=== PATIENT | female | born 1930 | race Caucasian/White ===

== ENCOUNTER → 2017-12-07 | Outpatient (CLI) | payer MEDICARE, BC ==
[~2017-12-07] MED LIST: ATELVIA35 MG PO; BIOTIN 1000MCG PO; LEVSIN0.125 M1 SL; MELOXICAM15 MG PO; VITAMIN E PO; Z GLUCOSAMINE PO; Z IRON PO; Z.0.ACTONEL150 MG PO; Z.0.CALTRATE 600 +1 PO; Z.0.NAPROXEN500 MG PO; Z.0.NEXIUM40 MG PO; Z.0.VITAMIN B12-FO1 PO; Z.0.VITAMIN C500 MG PO; [UNRECOGNIZED DRUG - CODE] PO; [UNRECOGNIZED DRUG - OTHER] PO; [UNRECOGNIZED DRUG - OTHER] PO; vit b12 PO
--- NOTE | 2017-12-07 14:37 | Diagnostic Imaging Report ---
PROCEDURE: X-RAY CHEST, TWO VIEWS COMPARISON: 03/29/17. INDICATIONS: COUGH FINDINGS: LUNGS: Stable hyperinflation. There is diffuse bronchial wall thickening without focal consolidation. Subsegmental atelectasis/scar has developed in the lateral right upper lobe. There is also subsegmental atelectasis/scar in the lingula. PLEURA: No effusions or pneumothorax. HEART \T\ MEDIASTINUM: The heart is normal in size. Aorta is ectatic but stable. BONES \T\ SOFT TISSUES: Diffusely demineralized. Severe degenerative changes of the left shoulder are stable. No focal osseous lesions. An IVC filter in the upper abdomen is incompletely imaged. CONCLUSION: Diffuse bronchial wall thickening suggestive of bronchitis. No consolidation. Stable pulmonary hyperinflation. Dictated by: Yonathan Nair M.D. on 12/07/2017 at 14:39 Electronically approved by: Yonathan Nair M.D. on 12/07/2017 at 14:39
== END ==
LOC: RAD 13:17
PROVIDERS: ATTEND Family Medicine
DX: R05 Cough (principal)
CPT/HCPCS: 71046

== ENCOUNTER 2017-12-18 09:34 | Outpatient (RCR) | payer MEDICARE, BC | END 2017-12-24 | LOC: WCC 09:34 | PROVIDERS: ATTEND Internal Medicine Infectious Disease | DX: I87.332 Chronic venous hypertension (idiopathic) with ulcer and inflammation of left lower extremity (principal); L97.321 Non-pressure chronic ulcer of left ankle limited to breakdown of skin; R60.0 Localized edema; I87.2 Venous insufficiency (chronic) (peripheral) ==

== ENCOUNTER 2018-05-08 19:08 | Inpatient (IN) | payer MEDICARE, BC ==
[~2018-05-08] VITALS: Ht 167.6 cm; Wt 54.6 kg
[2018-05-08] MEDS ORDERED: MORPHINE SULFATE 2 MG/ML SYR IV STA (19:37)
[2018-05-08] MEDS ORDERED: ONDANSETRON HCL INJ 2 MG/ML VIAL IV STA (19:37)
[2018-05-08] MEDS ORDERED: SODIUM CHLORIDE 0.9% 1000ML 1,000 ML IV STA (19:37)
[2018-05-08 20:08] LABS: BASOPHILS % 0.3 % (0.0-1.0); EOSINOPHILS % 0.3 % (0.0-6.0); HEMATOCRIT 39.4 % (34.2-44.1); HEMOGLOBIN 13.2 g/dL (12.0-16.0); LYMPHOCYTES # (AUTO) 1.3 (1.0-3.2); LYMPHOCYTES % 12.5 % (18.0-39.1); MEAN CORPUSCULAR HEMOGLOBIN 32.6 pg (28-32); MEAN CORPUSCULAR HGB CONC 33.5 g/dL (31-35); MEAN CORPUSCULAR VOLUME 97.3 fL (81-99); MONOCYTES # (AUTO) 0.7 (0.2-0.8); MONOCYTES % 6.3 % (4.4-11.3); NEUTROPHILS # (AUTO) 8.5 (2.1-6.9); NEUTROPHILS % 80.2 % (38.7-80.0); PLATELET COUNT 274 x10e3/uL (140-360); RED BLOOD COUNT 4.05 x10e6/uL (3.6-5.1); RED CELL DISTRIBUTION WIDTH 13.4 % (11.7-14.4)
[2018-05-08 20:20] LABS: INR 0.9; PARTIAL THROMBOPLASTIN TIME 32.2 seconds (23.8-35.5)
--- NOTE | 2018-05-08 20:24 | Diagnostic Imaging Report ---
EXAM: ABDOMEN COMP INCL UPR or DECUB INDICATION: Vomiting and abdominal pain COMPARISON: CT of the abdomen and pelvis April 06, 2016 FINDINGS: LINES/TUBES: IVC filter L3/L4 level. BOWEL PATTERN: No evidence for obstruction. SOFT TISSUES: No abnormal calcifications. LUNG BASES: No consolidations. BONES: No acute findings. Surgical screws project over the left femoral neck. IMPRESSION: Large amount of retained stool without evidence for obstruction. Signed by: Dr. Alivia Mahmood M.D. on 05/08/2018 8:20 PM
--- NOTE | 2018-05-08 20:25 | Diagnostic Imaging Report ---
EXAM: CHEST SINGLE (PORTABLE), AP 1 view INDICATION: Vomiting abdominal pain COMPARISON: Chest x-ray March 29, 2017 FINDINGS: LINES/TUBES: Inferior vena cava filter. LUNGS: No consolidations or edema. Emphysematous changes. Biapical pleural-parenchymal thickening. PLEURA: No effusions or pneumothorax. HEART AND MEDIASTINUM: Normal size and contour. BONES AND SOFT TISSUES: No acute findings. Degenerative changes of the bilateral shoulders. IMPRESSION: Emphysematous changes without consolidation. Signed by: Dr. Alivia Mahmood M.D. on 05/08/2018 8:22 PM
[2018-05-08 20:30] LABS: ALBUMIN 4.7 g/dL (3.5-5.0); ALBUMIN/GLOBULIN RATIO 1.5 (0.8-2.0); ANION GAP 20.8 mmol/L (8-16); CALCIUM 11.9 mg/dL (8.4-10.2); CREATININE, SERUM 1.13 mg/dL (0.57-1.11); MAGNESIUM 1.9 MG/DL (1.3-2.1); POTASSIUM 4.8 mmol/L (3.5-5.1)
[2018-05-08] MEDS ORDERED: PANTOPRAZOLE 40 MG 10ML VIAL IV ONE (20:30)
[2018-05-08 20:36] LABS: CREATINE KINASE MB 1.1 ng/mL (0-5.0)
[2018-05-08] MEDS ORDERED: DIATRIZOATE MEGL/DIATRIZOA SOD 30 ML BTL PO ONE (21:45)
[2018-05-08 22:07] LABS: CLARITY,URINE CLEAR (CLEAR); COLOR,URINE YELLOW (YELLOW)
[2018-05-08 22:08] LABS: BILIRUBIN,URINE NEGATIVE (NEGATIVE); KETONES,URINE 1+ (NEGATIVE); LEUKOCYTE ESTERASE ,URINE NEGATIVE (NEGATIVE); NITRITE,URINE NEGATIVE (NEGATIVE); PROTEIN,URINE DIPSTICK NEGATIVE (NEGATIVE); URINE UROBILINOGEN 0.2 mg/dL (0.2 - 1)
[2018-05-08 22:10] LABS: RBC,URINE 0-5 /HPF (0-5)
[2018-05-08 22:11] LABS: EPITHELIAL CELLS,URINE FEW /LPF; HYALINE CASTS 0-1 (0-1)
[2018-05-08] MEDS: PIPER-TAZ 3.375 GM 50 ML IV SCH (23:37)
--- NOTE | 2018-05-08 23:50 | Diagnostic Imaging Report ---
EXAM: CT ABDOMEN AND PELVIS without IV CONTRAST INDICATION: Abdominal pain and emesis COMPARISON: None TECHNIQUE: The abdomen and pelvis were scanned using a multidetector helical scanner. Coronal and sagittal reformations were obtained. Dose modulation, iterative reconstruction, and/or weight based adjustment of the mA/kV was utilized to reduce the radiation dose to as low as reasonably achievable. Routine protocol performed. IV Contrast: None Oral Contrast: Gastrografin CTDIvol has been reviewed. It is below the limits set by the Radiation Protocol Committee (RPC). FINDINGS: LOWER THORAX: Mild bibasilar atelectasis. LIVER: No masses BILIARY: Normal gallbladder. No ductal dilation. SPLEEN: No masses PANCREAS: No masses ADRENALS: No nodules RIGHT KIDNEY: No nephroureterolithiasis or hydronephrosis. LEFT KIDNEY: No nephroureterolithiasis or hydronephrosis. GI TRACT: Thickened centralized loop of small bowel up to 4.4 cm. Large amount of retained stool throughout the colon. VESSELS: Mild atherosclerotic changes of the abdominal aorta without aneurysm. [place] inferior vena cava filter. PERITONEUM/RETROPERITONEUM: No free air or fluid LYMPH NODES: No lymphadenopathy REPRODUCTIVE ORGANS: Uterus and ovaries are not visualized. BLADDER: Normal SOFT TISSUES: Stable nonspecific lobulated subcutaneous cyst in the superficial soft tissues of the right groin. BONES: No suspicious bone lesions. IMPRESSION: Proximal small bowel obstruction without cause identified by CT. Large amount of retained stool. Signed by: Dr. Alivia Mahmood M.D. on 05/08/2018 11:46 PM
[2018-05-09] VITALS (9 sets, daily range): BP systolic 118–169; BP diastolic 57–75
[2018-05-09] MEDS ORDERED: BENZOCAINE/TETRACAINE/BUTAMBEN AERO SPRAY 56 GM CAN TOP ONE (00:15)
[2018-05-09] MEDS ORDERED: LIDOCAINE VISC 2% SOLN 15 ML UDC ONE (01:27)
[2018-05-09] MEDS: SODIUM CHLORIDE 0.9% 1000ML 1,000 ML IV SCH ×3 (01:31→22:53)
[2018-05-09] MEDS: MORPHINE SULFATE 2 MG/ML SYR IV PRN ×4 (02:59→18:50)
[2018-05-09] MEDS: ONDANSETRON HCL INJ 2 MG/ML VIAL IV PRN ×5 (02:59→18:56)
[2018-05-09] MEDS: PIPER-TAZ 3.375 GM 50 ML IV SCH ×3 (06:03→18:36)
--- NOTE | 2018-05-09 14:01 | Diagnostic Imaging Report ---
EXAM: ABDOMEN COMP INCL UPR or DECUB DATE: 05/09/2018 11:56 AM INDICATION: Small bowel obstruction 05/08/2018 CT and radiographs, no reports available. COMPARISON: None FINDINGS: Left apex curvature of the lumbar spine, advanced degenerative changes of the spine, SI joints, and hips, IVC filter, and lag screws in the left hip, stable. Moderate stool present. Limited bowel gas. IMPRESSION: Moderate stool. Exam similar to previous. Signed by: Dr. Cristiano Alvarado MD on 05/09/2018 1:57 PM
[2018-05-09] MEDS ORDERED: SOD PHOSPHATE/SOD BIPHOSPHATE ENEMA 132 ML BTL PR ONE (21:00)
[2018-05-10] VITALS (8 sets, daily range): BP systolic 141–164; BP diastolic 60–72
[2018-05-10] MEDS: PIPER-TAZ 3.375 GM 50 ML IV SCH ×5 (00:14→23:21)
[2018-05-10 05:26] LABS: BASOPHILS % 0.2 % (0.0-1.0); EOSINOPHILS # (AUTO) 0.2 (0.0-0.4); EOSINOPHILS % 2.4 % (0.0-6.0); HEMATOCRIT 37.7 % (34.2-44.1); HEMOGLOBIN 12.5 g/dL (12.0-16.0); LYMPHOCYTES # (AUTO) 0.9 (1.0-3.2); MEAN CORPUSCULAR HEMOGLOBIN 33.1 pg (28-32); MEAN CORPUSCULAR HGB CONC 33.2 g/dL (31-35); MEAN CORPUSCULAR VOLUME 99.7 fL (81-99); MONOCYTES # (AUTO) 0.8 (0.2-0.8); MONOCYTES % 8.3 % (4.4-11.3); NEUTROPHILS # (AUTO) 7.3 (2.1-6.9); NEUTROPHILS % 78.8 % (38.7-80.0); PLATELET COUNT 241 x10e3/uL (140-360); RED BLOOD COUNT 3.78 x10e6/uL (3.6-5.1); RED CELL DISTRIBUTION WIDTH 13.6 % (11.7-14.4)
[2018-05-10] MEDS: ONDANSETRON HCL INJ 2 MG/ML VIAL IV PRN ×2 (05:32→10:06)
[2018-05-10 05:51] LABS: ALBUMIN 3.7 g/dL (3.5-5.0); ALBUMIN/GLOBULIN RATIO 1.4 (0.8-2.0); ANION GAP 17.1 mmol/L (8-16); CALCIUM 9.7 mg/dL (8.4-10.2); CREATININE, SERUM 0.97 mg/dL (0.57-1.11); POTASSIUM 4.1 mmol/L (3.5-5.1)
[2018-05-10] MEDS: SODIUM CHLORIDE 0.9% 1000ML 1,000 ML IV SCH ×3 (06:15→22:10)
[2018-05-10] MEDS ORDERED: SOD PHOSPHATE/SOD BIPHOSPHATE ENEMA 132 ML BTL PR ONE (08:00)
--- NOTE | 2018-05-10 09:16 | Diagnostic Imaging Report ---
PROCEDURE:ABDOMEN COMP INCL UPR OR DECUB INDICATION:Small bowel obstruction COMPARISON:Abdominal radiographs 05/09/2018. FINDINGS: The bowel gas pattern shows no grossly dilated, air-filled loops of bowel. Gas and fecal material is noted throughout the large bowel and rectum. Upright radiograph shows no sofie pneumoperitoneum. Gastric air-fluid level is again noted. Levoscoliotic curvature of the lumbar spine. Birds nest IVC filter unchanged.. Left proximal femoral nails unchanged. CONCLUSION: Moderate fecal burden within the colon, unchanged. Dilated loops of small bowel described on the comparison CT 05/08/2018 are not identified by plain radiography. No sofie pneumoperitoneum. Dictated by: Niall Rowe M.D. on 05/10/2018 at 9:24 Electronically approved by: Niall Rowe M.D. on 05/10/2018 at 9:24
[2018-05-11] MEDS: ONDANSETRON HCL INJ 2 MG/ML VIAL IV PRN ×3 (01:00→23:07)
[2018-05-11] MEDS: MORPHINE SULFATE 2 MG/ML SYR IV PRN (01:00)
[2018-05-11] MEDS: SODIUM CHLORIDE 0.9% 1000ML 1,000 ML IV SCH ×3 (01:57→21:40)
[2018-05-11 04:00] VITALS: BP 145/65
[2018-05-11] MEDS: PIPER-TAZ 3.375 GM 50 ML IV SCH ×4 (05:11→23:35)
[2018-05-11 07:56] VITALS: BP 127/60
[2018-05-11 09:23] VITALS: BP 127/60
[2018-05-11 12:01] VITALS: BP 142/58
--- OUTSIDE RECORDS SUMMARY | 2018-05-11 13:46 | XMS REPORT ---
Author Author [facility] Address Unknown Phone Unavailable Care Team Providers Care Field Service Analyst Name Role Phone NAT VÁSQUEZ Unavailable Unavailable ROULA SAUCEDO Unavailable Unavailable MERYL VÁSQUEZ Unavailable Unavailable Bruna GRANDE Unavailable Unavailable Problems This patient has no known problems. Allergies, Adverse Reactions, Alerts This patient has no known allergies or adverse reactions. Medications This patient has no known medications. Results Test Description Test Time Test Comments Text Results Atomic Results Result Comments ABDOMEN COMP INCL UPR or DECUB 2018-05-10 09:24:00 [place] [address] Patient Name: ELIAS LARSON MR #: [id number] : 1930 Age/Sex: 88/F Req #: [id number] Adm Physician: NAT VÁSQUEZ MD Ordered by: LORI THEODORE MD Report #: [id number] Location: MED/SURG Room/Bed: [facility] Procedure: [id number] DX/ABDOMEN COMP INCL UPR or DECUB Exam Date: 05/10/18 Exam Time: 0850 REPORT STATUS: Signed PROCEDURE: ABDOMEN COMP INCL UPR OR DECUB INDICATION: Small bowel obstruction COMPARISON: Abdominal radiographs 05/09/2018. FINDINGS: The bowel gas pattern shows no grossly dilated, air-filled loops of bowel. Gas and fecal material is noted throughout the large bowel and rectum. Upright radiograph shows no sofie pneumoperitoneum. Gastric air-fluid level is again noted. Levoscoliotic curvature of the lumbar spine. Birds nest IVC filter unchanged.. Left proximal femoral nails unchanged. CONCLUSION: Moderate fecal burden within the colon, unchanged. Dilated loops of small bowel described on the comparison CT 05/08/2018 are not identified by plain radiography. No sofie pneumoperitoneum. Dictated by: Jamel Rowe M.D. on 05/10/2018 at 9:24 Electronically approved by: Jamel Rowe M.D. on 05/10/2018 at 9:24 Dictated By: JAMEL ROWE MD 3 Transcribed By: HANNAH on 05/10/18923 COPY TO: LORI THEODORE MD ABDOMEN COMP INCL UPR or DECUB 2018-05-09 13:56:00 [place] [address] Patient Name: ELIAS LARSON MR #: [id number] : 1930 Age/Sex: 88/F Req #: [id number] Adm Physician: NAT VÁSQUEZ MD Ordered by: LORI THEODORE MD Report #: [id number] Location: MED/SURG Room/Bed: [facility] Procedure: [id number] DX/ABDOMEN COMP INCL UPR or DECUB Exam Date: 05/09/18 Exam Time: 1345 REPORT STATUS: Signed EXAM: ABDOMEN COMP INCL UPR or DECUB DATE: 05/09/2018 11:56 AM INDICATION: Small bowel obstruction 05/08/2018 CT and radiographs, no reports available. COMPARISON: None FINDINGS: Left apex curvature of the lumbar spine, advanced degenerative changes of the spine, SI joints, and hips, IVC filter, and lag screws in the left hip, stable. Moderate stool present. Limited bowel gas. IMPRESSION: Moderate stool. Exam similar to previous. Signed by: Dr. Adam Alvarado MD on 05/09/2018 1:57 PM Dictated By: ADAM ALVARADO MD 56 Transcribed By: URIEL on 05/09/181356 COPY TO: LORI THEODORE MD CT ABDOMEN/PELVIS WO 2018-05-08 23:22:00 [place] [address] Patient Name: ELIAS LARSON MR #: [id number] : 1930 Age/Sex: 88/F Req #: [id number] Adm Physician: Ordered by: DAVID HUMPHREYS MD Report #: [id number] Location: ER Room/Bed: Procedure: [id number] CT/CT ABDOMEN/PELVIS WO Exam Date: Exam Time: REPORT STATUS: Signed EXAM: CT ABDOMEN AND PELVIS without IV CONTRAST INDICATION: Abdominal pain and emesis COMPARISON: None TECHNIQUE: The abdomen and pelvis were scanned using a multidetector helical scanner. Coronal and sagittal reformations were obtained. Dose modulation, iterative reconstruction, and/or weight based adjustment of the mA/kV was utilized to reduce the radiation dose to as low as reasonably achievable. Routine protocol performed. IV Contrast: None Oral Contrast: Gastrografin CTDIvol has been reviewed. It is below the limits set by the Radiation Protocol Committee (RPC). FINDINGS: LOWER THORAX: Mild bibasilar atelectasis. LIVER: No masses BILIARY: Normal gallbladder. No ductal dilation. SPLEEN: No masses PANCREAS: No masses ADRENALS: No nodules RIGHT KIDNEY: No nephroureterolithiasis or hydronephrosis. LEFT KIDNEY: No nephroureterolithiasis or hydronephrosis. GI TRACT: Thickened centralized loop of small bowel up to 4.4 cm. Large amount of retained stool throughout the colon. VESSELS: Mild atherosclerotic changes of the abdominal aorta without aneurysm. Birdsnest inferior vena cava filter. PERITONEUM/RETROPERITONEUM: No free air or fluid LYMPH NODES: No lymphade nopathy REPRODUCTIVE ORGANS: Uterus and ovaries are not visualized. BLADDER: Normal SOFT TISSUES: Stable nonspecific lobulated subcutaneous cyst in the superficial soft tissues of the right groin. BONES: No suspicious bone lesions. IMPRESSION: Proximal small bowel obstruction without cause identified by CT. Large amount of retained stool. Signed by: Dr. Rambo Mahmood M.D. on 05/08/2018 11:46 PM Dictated By: RAMBO MAHMOOD MD 45 Transcribed By: URIEL on 05/08/182345 COPY TO: DAVID HUMPHREYS MD CHEST SINGLE (PORTABLE) 2018-05-08 20:20:00 [place] [address] Patient Name: ELIAS LARSON MR #: [id number] : 1930 Age/Sex: 88/F Req #: [id number] Adm Physician: Ordered by: DAVID HUMPHREYS MD Report #: [id number] Location: ER Room/Bed: Procedure: [id number] DX/CHEST SINGLE (PORTABLE) Exam Date: 05/08/18 Exam Time: 1999 REPORT STATUS: Signed EXAM: CHEST SINGLE (PORTABLE), AP 1 view INDICATION: Vomiting abdominal pain COMPARISON: Chest x-ray March 29, 2017 FINDINGS: LINES/TUBES: Inferior vena cava filter. LUNGS: No consolidations or edema. Emphysematous changes. Biapical pleural-parenchymal thickening. PLEURA: No effusions or pneumothorax. HEART AND MEDIASTINUM: Normal size and contour. BONES AND SOFT TISSUES: No acute findings. Degenerative changes of the bilateral shoulders. IMPRESSION: Emphysematous changes without consolidation. Signed by: Dr. Rambo Mahmood M.D. on 05/08/2018 8:22 PM Dictated By: RAMBO MAHMOOD MD 21 Transcribed By: URIEL on 05/08/182021 COPY TO: DAVID HUMPHREYS MD ABDOMEN COMP INCL UPR or DECUB 2018-05-08 20:18:00 [place] [address] Patient Name: ELIAS LARSON MR #: [id number] : 1930 Age/Sex: 88/F Req #: [id number] Adm Physician: Ordered by: DAVID HUMPHREYS MD Report #: [id number] Location: ER Room/Bed: Procedure: [id number] DX/ABDOMEN COMP INCL UPR or DECUB Exam Date: 05/08/18 Exam Time: 1999 REPORT STATUS: Signed EXAM: ABDOMEN COMP INCL UPR or DECUB INDICATION: Vomiting and abdominal pain COMPARISON: CT of the abdomen and pelvis April 06, 2016 FINDINGS: LINES/TUBES: IVC filter L3/L4 level. BOWEL PATTERN: No evidence for obstruction. SOFT TISSUES: No abnormal calcifications. LUNG BASES: No consolidations. BONES: No acute findings. Surgical screws project over the left femoral neck. IMPRESSION: Large amount of retained stool without evidence for obstruction. Signed by: Dr. Rambo Mahmood M.D. on 05/08/2018 8:20 PM Dictated By: RAMBO MAHMOOD MD 19 Transcribed By: URIEL on 05/08/182019 COPY TO: DAVID HUMPHREYS MD CHEST 2 VIEWS [place] [address] Patient Name: ELIAS LARSON MR #: [id number] : 1930 Age/Sex: 87/F Req #: [id number] Adm Physician: Ordered by: ROULA SAUCEDO MD Report #: [id number] Location: [facility] Room/Bed: Procedure: [id number] DX/CHEST 2 VIEWS Exam Date: 12/07/17 Exam Time: 1400 REPORT STATUS: Signed PROCEDURE: X-RAY CHEST, TWO VIEWS COMPARISON: 03/29/17. INDICATIONS: COUGH FINDINGS: LUNGS: Stable hyperinflation. There is diffuse bronchial wall thickening without focal consolidation. Subsegmental atelectasis/scar has developed in the lateral right upper lobe. There is also subsegmental atelectasis/scar in the lingula. PLEURA: No effusions or pneumothorax. HEART T MEDIASTINUM: The heart is normal in size. Aorta is ectatic but stable. BONES T SOFT TISSUES: Diffusely demineralized. Severe degenerative changes of the left shoulder are stable. No focal osseous lesions. An IVC filter in the upper abdomen is incompletely imaged. CONCLUSION: Diffuse bronchial wall thickening suggestive of bronchitis. No consolidation. Stable pulmonary hyperinflation. Dictated by: Lexx Cole M.D. on 12/07/2017 at 14:39 Electronically approved by: Lexx Cole M.D. on 12/07/2017 at 14:39 Dictated By: LEXX COLE MD 143 Transcribed By: HANNAH on 12/07/171438 COPY TO: ROULA SAUCEDO MD CT ABDOMEN/PELVIS W [place] [address] Patient Name: ELIAS LARSON MR #: [id number] : 1930 Age/Sex: 87/F Req #: [id number] Adm Physician: Ordered by: MERYL VÁSQUEZ MD Report #: [id number] Location: CT Room/Bed: Procedure: [id number] CT/CT ABDOMEN/PELVIS W Exam Date: 07/09/17 Exam Time: 1415 REPORT STATUS: Signed PROCEDURE: CT ABDOMEN AND PELVIS WITH CONTRAST TECHNIQUE: The abdomen and pelvis were scanned utilizing a multidetector helical scanner from the diaphragm to the lesser trochanter after the IV administration of 100 cc of Isovue 370 and the oral administration of 900 cc of water/Gastrografin. Coronal and sagittal multiplanar reformations were obtained. DLP: 305.4 mGy-cm COMPARISON: CT abdomen and pelvis 04/06/2016 INDICATIONS: RIGHT LOWER QUAD PAIN FOR 3 WEEKS FINDINGS: LOWER THORAX: Normal. HEPATOBILIARY: No focal hepatic lesions. No biliary ductal dilatation. SPLEEN: No splenomegaly. PANCREAS: No focal masses or ductal dilatation. ADRENALS: No adrenal nodules. KIDNEYS/URETERS: No hydronephrosis, stones, or solid mass lesions. PELVIC ORGANS/BLADDER: Hysterectomy. Otherwise, unremarkable. PERITONEUM / RETROPERITONEUM: No free air or fluid. LYMPH NODES: No lymphadenopathy. VESSELS: Stable positioning of IVC filter. GI TRACT: No distention or wall thickening. Large amount of stool in the colon. Appendix is not visualized, but no stranding is noted in the right lower quadrant to suggest appendicitis. BONES AND SOFT TISSUES: Again noted fluid attenuating lesion in the right groin measures 8 x 2.6 cm and likely represents a sebaceous cyst. Left proximal femoral screws. No suspicious osseus lesions. Small fat containing hernia in the anterior left lower quadrant with 2.1 cm neck and 1.2 x 4.2 cm (AP x TV) sac. S-shaped curvature of the lumbar spine. IMPRESSION: No acute abnormalities in the abdomen and pelvis. Dictated by: Matt eMndoza M.D. on 07/09/2017 at 15:02 Electronically approved by: Matt Mendoza M.D. on 07/09/2017 at 15:02 Dictated By: MATT MENDOZA MD 01 Transcribed By: HANNAH on 07/09/171501 COPY TO: MERYL VÁSQUEZ MD HIP RIGHT 2-3 VW (+/- PELVIS) [place] [address] Patient Name: ELIAS LARSON MR #: [id number] : 1930 Age/Sex: 87/F Req #: [id number] [facility] Physician: Ordered by: ROULA SAUCEDO MD Report #: [id number] Location: [facility] Room/Bed: Procedure: [id number] DX/HIP RIGHT 2-3 VW (+/- PELVIS) Exam Date: Exam Time: REPORT STATUS: Signed PROCEDURE: HIP RIGHT 2-3 VW (+/- PELVIS) COMPARISON: None. INDICATIONS: RIGHT HIP PAIN FINDINGS: BONES: Decreased mineralization. No acute , displaced fracture or dislocation. Mild to moderate degenerative changes in the right hip joint, with joint space narrowing. No lytic or blastic lesions. 4 screws are noted in the proximal left femur. Marked degenerative disc changes in the lower lumbosacral spine. SOFT TISSUES: Large amount of retained stool in the colon and rectum suggesting constipation. OTHER: Negative. CONCLUSION: 1. Decreased mineralization, which limits evaluation of the bony structures. No acute displaced fracture or dislocation. Correlate clinically for need for further imaging, particularly if there is history of trauma and clinical concern for occult fractures. 2. Mild to moderate degenerative changes in the right hip joint. Rommel Gomez M.D. Dictated by: Rommel Gomez M.D. on 06/12/2017 at 17:47 Electronically approved by: Rommel Gomez M.D. on 06/12/2017 at 17:47 Dictated By: ROMMEL GOMEZ MD 46 Transcribed By: HANNAH on 06/12/171746 COPY TO: ROULA SAUCEDO MD CHEST SINGLE (PORTABLE) [place] [address] Patient Name: ELIAS LARSON MR #: [id number] : 1930 Age/Sex: 86/F Req #: [id number] Adm Physician: Ordered by: MARQUISE GRANDE MD Report #: [id number] Location: ER Room/Bed: Procedure: [id number] DX/CHEST SINGLE (PORTABLE) Exam Date: 03/29/17 Exam Time: 1106 REPORT STATUS: Signed EXAMINATION: CHEST SINGLE (PORTABLE) INDICATION: COMPARISON: CT abdomen and pelvis from 04/06/2016 and chest radiograph from 04/06/2016 FINDINGS: AP view TUBES and LINES: None. LUNGS: Lungs are well inflated. Minimal atelectasis in the left lower lobe remains unchanged. Unchanged mild emphysematous changes. There is no evidence of pneumonia or pulmonary edema. PLEURA: No pleural effusion or pneumothorax. HEART AND MEDIASTINUM: The cardiomediastinal silhouette is unremarkable. BONES AND SOFT TISSUES: Right cervical rib. Soft tissues are unremarkable. UPPER ABDOMEN: No free air under the diaphragm. Partially visualized radiopacities overlying the right upper quadrant may be external to the patient. IMPRESSION: No acute thoracic abnormality. Signed by: Dr. Claribel Grossman M.D. on 03/29/2017 11:40 AM Dictated By: CLARIBEL GROSSMAN MD 1140 Transcribed By: URIEL on 03/29/17 1140 COPY TO: MARQUISE GRANDE MD
[2018-05-11] MEDS ORDERED: SOD PHOSPHATE/SOD BIPHOSPHATE ENEMA 132 ML BTL PR ONE (16:00)
[2018-05-11 16:33] VITALS: BP 141/61
[2018-05-11 20:00] VITALS: BP 140/65
[2018-05-12] VITALS (7 sets, daily range): BP systolic 125–184; BP diastolic 58–77
[2018-05-12] MEDS: PIPER-TAZ 3.375 GM 50 ML IV SCH ×3 (05:33→17:06)
[2018-05-12] MEDS: SODIUM CHLORIDE 0.9% 1000ML 1,000 ML IV SCH ×2 (09:32→17:40)
[2018-05-12] MEDS: METOPROLOL TARTRATE INJ 1 MG/ML VIAL IV PRN (17:31)
--- NOTE | 2018-05-12 18:52 | Diagnostic Imaging Report ---
EXAMINATION: ABDOMEN ACUTE SERIES W/PA CXR INDICATION: Follow-up small bowel obstruction. ^F/U SBO ^[id number] ^1811 COMPARISON: Abdominal series 05/09/2018, CT abdomen and pelvis 05/08/2018. Chest radiograph 05/08/2018 FINDINGS: PA view of the chest. AP supine and upright views of the abdomen. TUBES and LINES: None. LUNGS: Lungs are well inflated. Lungs are clear. There is no evidence of pneumonia or pulmonary edema. PLEURA: No pleural effusion or pneumothorax. HEART AND MEDIASTINUM: The cardiomediastinal silhouette is unremarkable. BONES AND SOFT TISSUES: No acute osseous lesion. Left apex curvature of the lumbar spine. Advanced degenerative changes of the spine, SI joints, and hips. Lag screws in the left hip. Soft tissues are unremarkable. ABDOMEN: IVC filter. Paucity of small bowel gas. Moderate stool in the right colon. IMPRESSION: No acute thoracic abnormality. Paucity of small bowel gas. Evaluation of SBO noted on 05/08/2018 by KUB is limited as the bowel is fluid-filled on the prior CT. Signed by: DR. Matt Gunter MD on 05/12/2018 6:49 PM
[2018-05-12] MEDS: MORPHINE SULFATE 2 MG/ML SYR IV PRN (23:18)
[2018-05-12] MEDS: ONDANSETRON HCL INJ 2 MG/ML VIAL IV PRN (23:18)
[2018-05-13] VITALS (24 sets, daily range): BP systolic 92–194; BP diastolic 47–129
[2018-05-13] MEDS: PIPER-TAZ 3.375 GM 50 ML IV SCH ×4 (00:15→17:10)
[2018-05-13] MEDS: MORPHINE SULFATE 2 MG/ML SYR IV PRN ×2 (04:12→15:17)
[2018-05-13] MEDS: SODIUM CHLORIDE 0.9% 1000ML 1,000 ML IV SCH ×2 (04:12→11:44)
[2018-05-13] MEDS: ONDANSETRON HCL INJ 2 MG/ML VIAL IV PRN ×3 (04:12→15:14)
[2018-05-13 05:12] LABS: BASOPHILS % 0.3 % (0.0-1.0); EOSINOPHILS % 0.3 % (0.0-6.0); HEMATOCRIT 36.1 % (34.2-44.1); HEMOGLOBIN 12.1 g/dL (12.0-16.0); LYMPHOCYTES # (AUTO) 1.1 (1.0-3.2); LYMPHOCYTES % 9.6 % (18.0-39.1); MEAN CORPUSCULAR HEMOGLOBIN 32.3 pg (28-32); MEAN CORPUSCULAR HGB CONC 33.5 g/dL (31-35); MEAN CORPUSCULAR VOLUME 96.3 fL (81-99); MONOCYTES # (AUTO) 1.3 (0.2-0.8); MONOCYTES % 11.4 % (4.4-11.3); NEUTROPHILS # (AUTO) 8.6 (2.1-6.9); PLATELET COUNT 236 x10e3/uL (140-360); RED BLOOD COUNT 3.75 x10e6/uL (3.6-5.1); RED CELL DISTRIBUTION WIDTH 13.4 % (11.7-14.4)
[2018-05-13 05:32] LABS: ALANINE AMINOTRANSFERASE 21 IU/L (0-55); ALBUMIN 3.6 g/dL (3.5-5.0); ALBUMIN/GLOBULIN RATIO 1.6 (0.8-2.0); ALKALINE PHOSPHATASE 42 IU/L (40-150); BLOOD UREA NITROGEN 19 mg/dL (7-26); BUN/CREATININE RATIO 25 (6-25); CALCIUM 9.4 mg/dL (8.4-10.2); CARBON DIOXIDE 20 mmol/L (22-29); CHLORIDE 106 mmol/L (98-107); CREATININE, SERUM 0.75 mg/dL (0.57-1.11); EST GLOMERULAR FILTRATION RATE > 60 ML/MIN (60-); GLUCOSE 90 mg/dL (74-118); SODIUM 143 mmol/L (136-145)
[2018-05-13] MEDS ORDERED: SOD PHOSPHATE/SOD BIPHOSPHATE ENEMA 132 ML BTL PR ONE (09:00)
[2018-05-13] MEDS: METOPROLOL TARTRATE INJ 1 MG/ML VIAL IV PRN (11:43)
[2018-05-13] MEDS ORDERED: FLUMAZENIL 0.5MG/ 5ML VIAL ONE (17:31)
[2018-05-13] MEDS ORDERED: SUCCINYLCHOLINE 200 MG/10 ML SYR ONE (17:31)
[2018-05-13] MEDS ORDERED: ESMOLOL HCL 100MG/10ML 10 MG/ML VIAL ONE (17:31)
[2018-05-13] MEDS ORDERED: LIDOCAINE HCL 2% LOCAL INJ 5 ML SDV VIAL INJ ONE (17:31)
[2018-05-13] MEDS ORDERED: PROPOFOL IV EMULSION 10 MG/ML 20 ML VIAL ONE (17:31)
[2018-05-13] MEDS ORDERED: ROCURONIUM BROMIDE 10 MG/ML 5ML VIAL ONE (17:31)
[2018-05-13] MEDS ORDERED: DIGOXIN INJ 0.25 MG/ML 2 ML AMP ONE (17:31)
[2018-05-13] MEDS ORDERED: FENTANYL CITRATE/PF 100MCG/2 ML INJ ONE (17:48)
[2018-05-13] MEDS ORDERED: MIDAZOLAM HCL 2 MG/2 ML VIAL ONE (17:48)
[2018-05-13 21:40] LABS: BASOPHILS # (AUTO) 0.1 (0.0-0.1); BASOPHILS % 0.4 % (0.0-1.0); EOSINOPHILS # (AUTO) 0.1 (0.0-0.4); EOSINOPHILS % 0.4 % (0.0-6.0); HEMATOCRIT 40.3 % (34.2-44.1); HEMOGLOBIN 13.4 g/dL (12.0-16.0); LYMPHOCYTES # (AUTO) 1.4 (1.0-3.2); LYMPHOCYTES % 11.6 % (18.0-39.1); MEAN CORPUSCULAR HEMOGLOBIN 32.6 pg (28-32); MEAN CORPUSCULAR HGB CONC 33.3 g/dL (31-35); MEAN CORPUSCULAR VOLUME 98.1 fL (81-99); MONOCYTES # (AUTO) 1.4 (0.2-0.8); MONOCYTES % 11.8 % (4.4-11.3); NEUTROPHILS % 75.5 % (38.7-80.0); PLATELET COUNT 261 x10e3/uL (140-360); RED BLOOD COUNT 4.11 x10e6/uL (3.6-5.1); RED CELL DISTRIBUTION WIDTH 13.3 % (11.7-14.4)
[2018-05-13 22:00] LABS: ALANINE AMINOTRANSFERASE 22 IU/L (0-55); ALBUMIN 3.3 g/dL (3.5-5.0); ALBUMIN/GLOBULIN RATIO 1.5 (0.8-2.0); ALKALINE PHOSPHATASE 40 IU/L (40-150); BLOOD UREA NITROGEN 18 mg/dL (7-26); BUN/CREATININE RATIO 24 (6-25); CARBON DIOXIDE 20 mmol/L (22-29); CHLORIDE 106 mmol/L (98-107); CREATININE, SERUM 0.76 mg/dL (0.57-1.11); EST GLOMERULAR FILTRATION RATE > 60 ML/MIN (60-); GLUCOSE 91 mg/dL (74-118); SODIUM 143 mmol/L (136-145)
[2018-05-13] MEDS ORDERED: KCL 20MEQ/.9 SOD CHL 1,000 ML IV ONE (22:12)
[2018-05-13] MEDS: SODIUM CHLORIDE 0.9% 250ML IRRIG IR SCH (22:32)
[2018-05-13] MEDS: KCL 20MEQ/.9 SOD CHL 1,000 ML IV SCH (22:34)
--- NOTE | 2018-05-13 22:41 | Diagnostic Imaging Report ---
EXAMINATION: CHEST SINGLE (PORTABLE) INDICATION: Change in condition, shortness of breath. COMPARISON: 05/12/2018 FINDINGS: TUBES and LINES: Interval placement of NG tube with tip at the level of the gastric antrum. LUNGS: Lungs are not well inflated. Interval development of left lower lobe airspace opacity . PLEURA: Small left pleural effusion has developed HEART AND MEDIASTINUM: The cardiomediastinal silhouette is unremarkable. There are atherosclerotic calcifications within the aorta. BONES AND SOFT TISSUES: No acute osseous lesion. Degenerative changes of the bilateral glenohumeral joints left greater than right. Soft tissues are unremarkable. UPPER ABDOMEN: No free air under the diaphragm. IMPRESSION: Findings are compatible with left lower lobe developing pneumonia with associated small left pleural effusion. Signed by: Dr. Lizandro Mary M.D. on 05/13/2018 10:38 PM
[2018-05-13 22:51] LABS: ABG HCO3 22 mmol/L (23-28); ABG PCO2 34 mmHg (41-51); ABG PH 7.42 (7.31-7.41); ABG PO2 73 mmHg (80-105)
[2018-05-13] MEDS ORDERED: AMIODARONE HCL 150MG 100 ML IV ONE (23:00)
[2018-05-13] MEDS ORDERED: AMIODARONE HCL 360MG 200 ML IV SCH (23:00)
[2018-05-13] MEDS ORDERED: AMIODARONE HCL 100 ML IV ONE (23:33)
[2018-05-13] MEDS ORDERED: AMIODARONE 900MG 500 ML IV ONE (23:34)
[2018-05-13] MEDS: PANTOPRAZOLE 40 MG 10ML VIAL IV SCH (23:48)
[2018-05-14] VITALS (80 sets, daily range): BP systolic 79–160; BP diastolic 50–153
[2018-05-14] MEDS: PIPER-TAZ 3.375 GM 50 ML IV SCH ×4 (01:07→18:30)
[2018-05-14] MEDS: SODIUM CHLORIDE 0.9% 250ML IRRIG IR SCH ×6 (02:27→22:33)
[2018-05-14 04:40] LABS: BASOPHILS % 0.4 % (0.0-1.0); EOSINOPHILS # (AUTO) 0.2 (0.0-0.4); HEMATOCRIT 33.9 % (34.2-44.1); HEMOGLOBIN 11.5 g/dL (12.0-16.0); LYMPHOCYTES # (AUTO) 1.3 (1.0-3.2); LYMPHOCYTES % 13.7 % (18.0-39.1); MEAN CORPUSCULAR HEMOGLOBIN 32.8 pg (28-32); MEAN CORPUSCULAR HGB CONC 33.9 g/dL (31-35); MEAN CORPUSCULAR VOLUME 96.6 fL (81-99); MONOCYTES # (AUTO) 0.9 (0.2-0.8); MONOCYTES % 9.4 % (4.4-11.3); NEUTROPHILS # (AUTO) 7.3 (2.1-6.9); NEUTROPHILS % 74.1 % (38.7-80.0); PLATELET COUNT 230 x10e3/uL (140-360); RED BLOOD COUNT 3.51 x10e6/uL (3.6-5.1); RED CELL DISTRIBUTION WIDTH 13.4 % (11.7-14.4)
[2018-05-14] MEDS ORDERED: AMIODARONE HCL 360MG 200 ML IV SCH (05:00)
[2018-05-14 05:06] LABS: ALANINE AMINOTRANSFERASE 18 IU/L (0-55); ALBUMIN 2.8 g/dL (3.5-5.0); ALBUMIN/GLOBULIN RATIO 1.6 (0.8-2.0); ALKALINE PHOSPHATASE 34 IU/L (40-150); ANION GAP 14.9 mmol/L (8-16); BLOOD UREA NITROGEN 19 mg/dL (7-26); BUN/CREATININE RATIO 26 (6-25); CALCIUM 8.6 mg/dL (8.4-10.2); CARBON DIOXIDE 24 mmol/L (22-29); CHLORIDE 110 mmol/L (98-107); CREATININE, SERUM 0.74 mg/dL (0.57-1.11); EST GLOMERULAR FILTRATION RATE > 60 ML/MIN (60-); GLUCOSE 91 mg/dL (74-118); SODIUM 146 mmol/L (136-145)
[2018-05-14 05:31] LABS: POTASSIUM 2.9 mmol/L (3.5-5.1)
[2018-05-14] MEDS ORDERED: POTASSIUM CHLORIDE 20MEQ/100ML 200 ML IV ONE (07:00)
[2018-05-14] MEDS: KCL 20MEQ/.9 SOD CHL 1,000 ML IV SCH ×2 (08:15→18:15)
[2018-05-14 19:40] LABS: ANION GAP 16.3 mmol/L (8-16); BLOOD UREA NITROGEN 14 mg/dL (7-26); BUN/CREATININE RATIO 19 (6-25); CALCIUM 9.1 mg/dL (8.4-10.2); CARBON DIOXIDE 22 mmol/L (22-29); CHLORIDE 110 mmol/L (98-107); CREATININE, SERUM 0.74 mg/dL (0.57-1.11); EST GLOMERULAR FILTRATION RATE > 60 ML/MIN (60-); GLUCOSE 73 mg/dL (74-118); POTASSIUM 3.3 mmol/L (3.5-5.1); SODIUM 145 mmol/L (136-145)
[2018-05-14] MEDS ORDERED: AMIODARONE HCL 900 MG in DEXTROSE 5% 500ML 500 ML IV SCH ×4 (19:45)
--- NOTE | 2018-05-14 20:20 | Consultation ---
DATE OF CONSULTATION: May 14, 2018 CARDIOLOGY CONSULTATION REQUESTING PHYSICIAN: Dr. Guille Mills. REASON FOR CONSULTATION: Atrial fibrillation with rapid ventricular response. HISTORY OF PRESENT ILLNESS: This is an 88-year-old woman with history of aortic valve endocarditis; paroxysmal atrial fibrillation, on Eliquis; history of brain aneurysm, status post ligation in 2003; venous insufficiency; hypertension; history of DVT/PE, who presented with complaints of nausea and vomiting. Patient reports she began having nausea and vomiting of bilious material last Thursday. She passed some flatus, but did not have any bowel movements. She subsequently presented to the ER for further evaluation. She was found to have a small bowel obstruction and admitted for further evaluation. Patient was planned for ex-lap and possible bowel resection by Dr. Vásquez; however, she developed atrial fibrillation with rapid ventricular response preoperatively and the procedure was cancelled. Cardiology was consulted for further evaluation. The patient denies any chest pain, shortness of breath, palpitations, edema, orthopnea, or PND. REVIEW OF SYSTEMS: Negative except as per HPI. PAST MEDICAL HISTORY 1. Aortic valve endocarditis. 2. Paroxysmal atrial fibrillation, on Eliquis. 3. History of DVT/PE, status post IVC filter. 4. History of brain aneurysm, status post ligation. 5. Hypertension. 6. COPD/GERD. 7. Venous insufficiency. PAST SURGICAL HISTORY 1. Appendectomy. 2. Hysterectomy. 3. Partial colectomy with colostomy. 4. Colostomy reversal. 5. Knee surgery x2. 6. Thyroid surgery. 7. Hip repair. ALLERGIES: NO KNOWN DRUG ALLERGIES. MEDICATIONS: Please see EMR. SOCIAL HISTORY: Denies tobacco, alcohol, or illicit drugs. FAMILY HISTORY: Noncontributory to current illness. PHYSICAL EXAM VITAL SIGNS: Temperature 98.1 degrees, pulse 67, respiratory rate 18, blood pressure 145/58, oxygen saturation 92% on 5 L face mask. GENERAL: An elderly woman, no acute distress. HEENT: Normocephalic, atraumatic. Pupils are equal. No scleral icterus. NECK: Supple. No thyromegaly or cervical lymphadenopathy. No carotid bruits. LUNGS: Clear to auscultation bilaterally. No wheezes or crackles. CARDIOVASCULAR: Normal rate, regular rhythm. Harsh 4/6 systolic murmur best appreciated at the upper sternal borders with radiation to the carotid. ABDOMEN: Soft, tender to palpation, nondistended. EXTREMITIES: No edema. NEURO: Nonfocal exam. LABS: WBC 9.79, hemoglobin 11.5, hematocrit 32.9, platelets 230. Sodium 146, potassium 2.9, chloride 110, CO2 of 24, BUN 19, creatinine 0.74. Chest x-ray, findings are compatible with left lower lobe developing pneumonia with associated small left pleural effusion. EKG, atrial fibrillation, rapid ventricular response with premature apparently conducted complexes, marked ST abnormality, possible inferior sub-endocardial injury. TELEMETRY: Normal sinus rhythm. IMPRESSION 1. Paroxysmal atrial fibrillation with rapid ventricular response. 2. History of aortic valve endocarditis. 3. Hypertension. 4. History of deep venous thrombosis/pulmonary embolism, status post inferior vena cava filter. 5. History of brain aneurysm, status post ligation. 6. Small bowel obstruction. 7. Venous insufficiency. RECOMMENDATIONS: Continue patient on amiodarone drip. Start scheduled metoprolol for rate control as patient is n.p.o. due to her small bowel obstruction. We will review patient's recent cardiac evaluation from the office. Hold anticoagulation given plan for surgery. Thank you for this consult. We will continue to follow. Job#: [id number] LATOSHA BRADY
[2018-05-14] MEDS ORDERED: ACETAMINOPHEN 650 MG SUPP PR PRN (20:45)
[2018-05-14] MEDS: PANTOPRAZOLE 40 MG 10ML VIAL IV SCH (22:33)
[2018-05-15] VITALS (86 sets, daily range): BP systolic 111–179; BP diastolic 51–103
[2018-05-15] MEDS ORDERED: METOPROLOL TARTRATE INJ 1 MG/ML VIAL IV ONE
[2018-05-15] MEDS: PIPER-TAZ 3.375 GM 50 ML IV SCH ×2 (00:15→05:25)
[2018-05-15] MEDS: SODIUM CHLORIDE 0.9% 250ML IRRIG IR SCH ×6 (03:13→22:18)
[2018-05-15] MEDS: KCL 20MEQ/.9 SOD CHL 1,000 ML IV SCH (04:01)
[2018-05-15 04:36] LABS: BASOPHILS # (AUTO) 0.1 (0.0-0.1); BASOPHILS % 0.4 % (0.0-1.0); EOSINOPHILS # (AUTO) 0.3 (0.0-0.4); HEMATOCRIT 31.3 % (34.2-44.1); HEMOGLOBIN 10.4 g/dL (12.0-16.0); LYMPHOCYTES % 6.6 % (18.0-39.1); MEAN CORPUSCULAR HEMOGLOBIN 33.2 pg (28-32); MEAN CORPUSCULAR HGB CONC 33.2 g/dL (31-35); MONOCYTES % 6.6 % (4.4-11.3); NEUTROPHILS # (AUTO) 13.1 (2.1-6.9); NEUTROPHILS % 83.9 % (38.7-80.0); PLATELET COUNT 202 x10e3/uL (140-360); RED BLOOD COUNT 3.13 x10e6/uL (3.6-5.1); RED CELL DISTRIBUTION WIDTH 13.7 % (11.7-14.4)
[2018-05-15 04:59] LABS: ALANINE AMINOTRANSFERASE 15 IU/L (0-55); ALBUMIN 2.6 g/dL (3.5-5.0); ALBUMIN/GLOBULIN RATIO 1.2 (0.8-2.0); ALKALINE PHOSPHATASE 35 IU/L (40-150); ANION GAP 15.2 mmol/L (8-16); BLOOD UREA NITROGEN 13 mg/dL (7-26); BUN/CREATININE RATIO 18 (6-25); CALCIUM 8.9 mg/dL (8.4-10.2); CARBON DIOXIDE 22 mmol/L (22-29); CHLORIDE 112 mmol/L (98-107); CREATININE, SERUM 0.73 mg/dL (0.57-1.11); EST GLOMERULAR FILTRATION RATE > 60 ML/MIN (60-); GLUCOSE 67 mg/dL (74-118); POTASSIUM 3.2 mmol/L (3.5-5.1); SODIUM 146 mmol/L (136-145)
[2018-05-15] MEDS ORDERED: DEXTROSE 50% SYRINGE 50 ML IV PRN (09:00)
[2018-05-15] MEDS: BALSAM PERU/CASTOR OIL 5 GM OINT...G. TP SCH (09:15)
[2018-05-15] MEDS ORDERED: POTASSIUM CHLORIDE 20MEQ/100ML 200 ML IV ONE (10:45)
[2018-05-15] MEDS ORDERED: DEXTROSE 50% SYRINGE 50 ML IV ONE (10:52)
[2018-05-15] MEDS: VANCOMYCIN 1GM/NS 250 ML 250 ML IV SCH ×2 (11:00→22:20)
--- NOTE | 2018-05-15 11:24 | Diagnostic Imaging Report ---
EXAMINATION: CHEST SINGLE (PORTABLE) INDICATION: ^LLL pneumonia COMPARISON: Chest x-ray 05/13/2018 FINDINGS: AP view TUBES and LINES: NG tube in the stomach. LUNGS: Lungs are well inflated. There are bibasilar atelectasis. There is slight increase in mild prominence of the central pulmonary vasculature, consistent with pulmonary venous congestion. Left lower lobe consolidation is unchanged. PLEURA: Stable to minimally increased small bilateral pleural effusions, left greater than right. HEART AND MEDIASTINUM: The cardiomediastinal silhouette is unremarkable. BONES AND SOFT TISSUES: No acute osseous lesion. Degenerative changes in bilateral glenohumeral joints, left greater than right. Soft tissues are unremarkable. UPPER ABDOMEN: No free air under the diaphragm. IMPRESSION: 1. Interval development and mild central pulmonary venous congestion and slight increase in small bilateral pleural effusions. 2. Left lower lobe pneumonia remains present. Signed by: Dr. Kendrick Bañuelos M.D. on 05/15/2018 11:21 AM
[2018-05-15] MEDS ORDERED: MINERAL OIL 132 ML BTL PR NR (11:30)
[2018-05-15] MEDS: D5NS/KCL 20MEQ 1,000 ML IV SCH ×2 (11:40→20:47)
[2018-05-15] MEDS: CEFEPIME HCL 1 GM VIAL IV SCH ×2 (12:28→22:18)
--- NOTE | 2018-05-15 15:22 | Diagnostic Imaging Report ---
EXAMINATION: CHEST XRAY LINE PLACEMENT INDICATION: ^new picc line COMPARISON: Chest x-ray 05/15/2018 at 1048 FINDINGS: AP view TUBES and LINES: New right PICC line with tip at mid SVC. NG tube is in the stomach. LUNGS: Lungs are well inflated. There are bibasilar atelectasis. There is unchanged mild prominence of the central pulmonary vasculature, consistent with pulmonary venous congestion. Left lower lobe consolidation is unchanged. PLEURA: Stable small bilateral pleural effusions, left greater than right. HEART AND MEDIASTINUM: The cardiomediastinal silhouette is unremarkable. BONES AND SOFT TISSUES: No acute osseous lesion. Degenerative changes in bilateral glenohumeral joints, left greater than right. Soft tissues are unremarkable. UPPER ABDOMEN: No free air under the diaphragm. IMPRESSION: 1. New right PICC line with tip at mid SVC. 2. Stable mild central pulmonary venous congestion and small bilateral pleural effusions. 3. Left lower lobe pneumonia remains present. Signed by: Dr. Kendrick Bañuelos M.D. on 05/15/2018 3:19 PM
[2018-05-15] MEDS ORDERED: SOD PHOSPHATE/SOD BIPHOSPHATE ENEMA 132 ML BTL PR PRN (19:30)
--- NOTE | 2018-05-15 19:51 | Progress Note ---
DATE: May 15, 2018 CARDIOLOGY PROGRESS NOTE SUBJECTIVE: No major events overnight. No abdominal pain, chest pain, or shortness of breath. OBJECTIVE VITAL SIGNS: Temperature afebrile, pulse 62, respiratory rate 16, blood pressure 134/62, satting 98% on 2 liters nasal cannula. GENERAL: Elderly white female, thin, ill-appearing. CARDIOVASCULAR: Regular rate and rhythm. There is a 3/6 systolic murmur heard in the right upper and left upper sternal borders without significant diminishment of carotid upstroke. There is also holosystolic murmur heard in the left lower sternal border consistent with tricuspid regurgitation. Palpable carotid pulses. Palpable radial pulses. EXTREMITIES: No lower ulcers or varicosities. LUNGS: Clear to auscultation bilaterally. ABDOMEN: Soft, mildly distended, nontender. No masses. NEURO AND PSYCH: Alert and oriented to person, place, and time. Normal affect. LABORATORY DATA: Reviewed. Notable for white count of 15.6. IMAGING DATA: Reviewed. TELEMETRY DATA: Reviewed shows normal sinus rhythm. INPATIENT MEDICATIONS: Reviewed. ASSESSMENT AND PLAN 1. Paroxysmal atrial fibrillation with left ventricular response. 2. History of aortic valve endocarditis in 2016, status post antibiotics and no need for surgery. 3. Hypertension. 4. History of deep venous thrombosis and pulmonary embolism, status post inferior vena cava filter. 5. History of chronic venous insufficiency and venous ulcerations, status post vein ablation in the past. 6. History of brain aneurysm, status post ligation. 7. Small bowel obstruction. 8. Abnormal EKG. PLAN: Patient is converted to normal sinus rhythm. Would continue amiodarone drip as she is not able to take p.o. medicines given her small bowel obstruction and amiodarone should help control her heart rate and rhythm in the perioperative period. P.r.n. IV metoprolol as needed. Reviewed the patient's records from the office, she had normal perfusion scan done in 2017, has not had a cardiac catheterization previously, no history of CAD. We will repeat echocardiogram prior to her surgery. She will be at moderate risk for perioperative cardiovascular events for abdominal surgery. Currently, she is euvolemic and does not have any unstable cardiovascular symptoms. Thank you for this consult. We will continue to follow. Job#: [id number] VAS
[2018-05-15] MEDS: PANTOPRAZOLE 40 MG 10ML VIAL IV SCH (22:18)
[2018-05-16] VITALS (88 sets, daily range): BP systolic 119–177; BP diastolic 60–122
[2018-05-16] MEDS: SODIUM CHLORIDE 0.9% 250ML IRRIG IR SCH ×6 (02:39→21:57)
[2018-05-16 04:22] LABS: BASOPHILS % 0.3 % (0.0-1.0); EOSINOPHILS # (AUTO) 0.5 (0.0-0.4); EOSINOPHILS % 4.7 % (0.0-6.0); HEMATOCRIT 30.4 % (34.2-44.1); HEMOGLOBIN 10.2 g/dL (12.0-16.0); LYMPHOCYTES # (AUTO) 1.1 (1.0-3.2); LYMPHOCYTES % 9.4 % (18.0-39.1); MEAN CORPUSCULAR HEMOGLOBIN 32.6 pg (28-32); MEAN CORPUSCULAR HGB CONC 33.6 g/dL (31-35); MEAN CORPUSCULAR VOLUME 97.1 fL (81-99); MONOCYTES % 8.2 % (4.4-11.3); NEUTROPHILS # (AUTO) 8.9 (2.1-6.9); NEUTROPHILS % 76.9 % (38.7-80.0); PLATELET COUNT 200 x10e3/uL (140-360); RED BLOOD COUNT 3.13 x10e6/uL (3.6-5.1); RED CELL DISTRIBUTION WIDTH 13.7 % (11.7-14.4)
[2018-05-16 04:42] LABS: ALANINE AMINOTRANSFERASE 14 IU/L (0-55); ALBUMIN 2.5 g/dL (3.5-5.0); ALBUMIN/GLOBULIN RATIO 1.2 (0.8-2.0); ALKALINE PHOSPHATASE 37 IU/L (40-150); ANION GAP 13.4 mmol/L (8-16); BLOOD UREA NITROGEN 9 mg/dL (7-26); BUN/CREATININE RATIO 13 (6-25); CALCIUM 8.7 mg/dL (8.4-10.2); CARBON DIOXIDE 23 mmol/L (22-29); CHLORIDE 110 mmol/L (98-107); CREATININE, SERUM 0.67 mg/dL (0.57-1.11); EST GLOMERULAR FILTRATION RATE > 60 ML/MIN (60-); GLUCOSE 141 mg/dL (74-118); POTASSIUM 3.4 mmol/L (3.5-5.1); SODIUM 143 mmol/L (136-145)
[2018-05-16] MEDS: D5NS/KCL 20MEQ 1,000 ML IV SCH ×2 (06:29→21:57)
[2018-05-16] MEDS: BALSAM PERU/CASTOR OIL 5 GM OINT...G. TP SCH (09:42)
[2018-05-16] MEDS ORDERED: POTASSIUM CHLORIDE 20MEQ/100ML 200 ML IV ONE (10:30)
[2018-05-16] MEDS: CEFEPIME HCL 1 GM VIAL IV SCH ×2 (11:00→22:17)
[2018-05-16] MEDS: VANCOMYCIN 1GM/NS 250 ML 250 ML IV SCH ×2 (11:30→22:18)
[2018-05-16] MEDS ORDERED: FUROSEMIDE INJ 10 MG/ML 4 ML VIAL IV ONE (12:00)
[2018-05-16] MEDS ORDERED: AMIODARONE HCL IV SCH (14:00)
[2018-05-16] MEDS ORDERED: DEXTROSE 5% IV SCH (14:00)
[2018-05-16] MEDS ORDERED: AMIODARONE 900MG 500 ML IV ONE (15:55)
--- NOTE | 2018-05-16 16:23 | Progress Note ---
DATE: May 16, 2018 CARDIOLOGY PROGRESS NOTE SUBJECTIVE: No major events overnight. Has some abdominal discomfort today, but otherwise no chest pain or shortness of breath. OBJECTIVE VITAL SIGNS: Temperature afebrile, pulse 67 sinus, respiratory rate 16, blood pressure 161/93, satting 89% on nasal cannula. GENERAL: Elderly white female, thin, ill-appearing. CARDIOVASCULAR: Regular rate and rhythm. A 3/6 systolic murmur right upper sternal border consistent with aortic stenosis radiating to the carotids. Palpable carotid pulses. Palpable radial pulses. No lower extremity edema or ulcerations. LUNGS: Clear to auscultation bilaterally. ABDOMEN: Soft, mildly distended, nontender. No masses. NEURO AND PSYCH: Alert and oriented to person, place, and time. Normal affect. LABORATORY DATA: Reviewed. IMAGING DATA: Reviewed. TELEMETRY DATA: Reviewed, shows normal sinus rhythm. INPATIENT MEDICATIONS: Reviewed. ASSESSMENT 1. Paroxysmal atrial fibrillation with rapid ventricular response. 2. History of aortic valve endocarditis in 2016, status post antibiotics and no prior surgery. 3. Hypertension. 4. History of deep venous thrombosis and pulmonary embolus, status post inferior vena cava filter. 5. History of chronic venous insufficiency and venous ulcerations, status post vein ablations in the past. 6. History of brain aneurysm, status post ligation. 7. Small bowel obstruction. 8. Abnormal EKG. PLAN: Continue IV amiodarone in the perioperative period, remains in sinus rhythm. Little hypertensive today because not able to take her p.o. medicines. Continue p.r.n. IV medicines for hypertension. Echo pending, we will review. She will be at moderate risk for perioperative cardiovascular events or abdominal surgery. No further cardiovascular workup or intervention planned outside of the echocardiogram. Currently euvolemic. No unstable cardiovascular symptoms. Thank you for this consult. We will continue to follow. Job#: [id number] BUSTER
[2018-05-16] MEDS: PANTOPRAZOLE 40 MG 10ML VIAL IV SCH (22:17)
[2018-05-17] VITALS (83 sets, daily range): BP systolic 110–175; BP diastolic 62–127
[2018-05-17] MEDS: SODIUM CHLORIDE 0.9% 250ML IRRIG IR SCH ×6 (01:11→22:17)
[2018-05-17 04:46] LABS: BASOPHILS % 0.4 % (0.0-1.0); EOSINOPHILS # (AUTO) 0.5 (0.0-0.4); EOSINOPHILS % 5.5 % (0.0-6.0); HEMATOCRIT 32.9 % (34.2-44.1); HEMOGLOBIN 10.9 g/dL (12.0-16.0); LYMPHOCYTES # (AUTO) 1.4 (1.0-3.2); LYMPHOCYTES % 14.8 % (18.0-39.1); MEAN CORPUSCULAR HEMOGLOBIN 32.2 pg (28-32); MEAN CORPUSCULAR HGB CONC 33.1 g/dL (31-35); MEAN CORPUSCULAR VOLUME 97.3 fL (81-99); MONOCYTES % 10.8 % (4.4-11.3); NEUTROPHILS # (AUTO) 6.4 (2.1-6.9); NEUTROPHILS % 67.9 % (38.7-80.0); PLATELET COUNT 230 x10e3/uL (140-360); RED BLOOD COUNT 3.38 x10e6/uL (3.6-5.1); RED CELL DISTRIBUTION WIDTH 13.7 % (11.7-14.4)
[2018-05-17 05:07] LABS: ALANINE AMINOTRANSFERASE 12 IU/L (0-55); ALBUMIN 2.5 g/dL (3.5-5.0); ALBUMIN/GLOBULIN RATIO 1.1 (0.8-2.0); ALKALINE PHOSPHATASE 42 IU/L (40-150); ANION GAP 12.7 mmol/L (8-16); BLOOD UREA NITROGEN 5 mg/dL (7-26); BUN/CREATININE RATIO 7 (6-25); CALCIUM 8.9 mg/dL (8.4-10.2); CARBON DIOXIDE 22 mmol/L (22-29); CHLORIDE 109 mmol/L (98-107); CREATININE, SERUM 0.74 mg/dL (0.57-1.11); EST GLOMERULAR FILTRATION RATE > 60 ML/MIN (60-); GLUCOSE 153 mg/dL (74-118); POTASSIUM 3.7 mmol/L (3.5-5.1); SODIUM 140 mmol/L (136-145)
--- NOTE | 2018-05-17 06:45 | Diagnostic Imaging Report ---
EXAMINATION: CHEST SINGLE (PORTABLE) INDICATION: Left lower lobe pneumonia COMPARISON: 05/15/2018 FINDINGS: TUBES and LINES: Right extremity PICC line and NG tube are again visualized and stable position. LUNGS: Lungs are not well inflated. There are bibasilar atelectasis. Confluent opacity in the left lower lobe compatible with additional atelectasis PLEURA: Trace of bilateral pleural effusions HEART AND MEDIASTINUM: The cardiomediastinal silhouette is unremarkable. There are atherosclerotic calcifications within the aorta. BONES AND SOFT TISSUES: No acute osseous lesion. Soft tissues are unremarkable. UPPER ABDOMEN: No free air under the diaphragm. IMPRESSION: 1. No evidence of pneumonia. However, opacities in the lung bases are compatible with atelectasis left greater than right. 2. Small bilateral pleural effusions Signed by: Dr. Lizandro Mary M.D. on 05/17/2018 6:42 AM
[2018-05-17] MEDS: BALSAM PERU/CASTOR OIL 5 GM OINT...G. TP SCH (10:04)
[2018-05-17] MEDS: CEFEPIME HCL 1 GM VIAL IV SCH ×2 (10:31→22:17)
[2018-05-17] MEDS: VANCOMYCIN 1GM/NS 250 ML 250 ML IV SCH (10:31)
[2018-05-17] MEDS: D5NS/KCL 20MEQ 1,000 ML IV SCH (10:33)
--- NOTE | 2018-05-17 14:26 | Progress Note ---
DATE: May 17, 2018 CARDIOLOGY PROGRESS NOTE SUBJECTIVE: No major events overnight. The patient is still n.p.o. She has some abdominal discomfort with palpation of the area. No chest pain or shortness of breath. No palpitations. OBJECTIVE VITALS: Temperature is 97.9 degrees Fahrenheit. Heart rate is 62. Respirations are 16. Blood pressure is 132/98. Oxygen saturation is 98% on 2 liters nasal cannula. GENERAL: Elderly female lying comfortably in bed in no apparent distress. NECK: No jugular venous distention. Oropharynx is dry. EYES: The extraocular muscles are intact. CARDIOVASCULAR: Regular rate and rhythm. Systolic murmur heard best at the right upper sternal border, 3/6. Palpable pulses. No lower extremity edema. LUNGS: Clear to auscultation bilaterally. No wheezing or rales. ABDOMEN: Soft. Mildly distended. Mildly tender. SKIN: Warm, dry, and intact. NEUROLOGIC: No focal deficits noted. Cranial nerves are grossly intact. PSYCHIATRIC: Normal mood and affect. LABS: All laboratory and imaging data were reviewed. MEDICATIONS: Reviewed. TELEMETRY MONITORING: Normal sinus rhythm. ASSESSMENT 1. Paroxysmal atrial fibrillation, resolved. Currently normal sinus rhythm. 2. History of aortic valve endocarditis in 2016, status post antibiotics. 3. Hypertension. 4. History of deep venous thrombosis and pulmonary embolism, status post superior vena caval filter placement. 5. Chronic venous insufficiency. 6. History of brain aneurysm, status post ligation. 7. Small-bowel obstruction. RECOMMENDATIONS: Will continue amiodarone intravenously as this has restored and is maintaining normal sinus rhythm. She is not taking any p.o. medications and can use as-needed IV metoprolol if she becomes tachycardic. Echocardiogram has been ordered, and we will review this once this has been resulted. She is at moderate risk for perioperative cardiovascular events for her abdominal surgery. Continue small-bowel obstruction treatment per primary and surgical teams. Thank you for the consultation. We will continue to follow along with you. Job#: [id number]
[2018-05-17] MEDS: AMIODARONE 900MG 500 ML IV SCH (15:08)
[2018-05-17] MEDS: CENTRAL TPN FORMULA 1 BAG IV SCH (17:45)
[2018-05-17] MEDS: PANTOPRAZOLE 40 MG 10ML VIAL IV SCH (22:17)
[2018-05-18] VITALS (78 sets, daily range): BP systolic 111–186; BP diastolic 65–93
[2018-05-18] MEDS: VANCOMYCIN 1GM/NS 250 ML 250 ML IV SCH ×2 (00:16→11:21)
[2018-05-18] MEDS: SODIUM CHLORIDE 0.9% 250ML IRRIG IR SCH ×7 (02:43→21:10)
[2018-05-18] MEDS: AMIODARONE 900MG 500 ML IV SCH (02:43)
[2018-05-18 06:05] LABS: BASOPHILS % 0.4 % (0.0-1.0); EOSINOPHILS # (AUTO) 0.5 (0.0-0.4); EOSINOPHILS % 6.6 % (0.0-6.0); HEMATOCRIT 32.4 % (34.2-44.1); HEMOGLOBIN 10.7 g/dL (12.0-16.0); LYMPHOCYTES % 13.6 % (18.0-39.1); MONOCYTES # (AUTO) 1.1 (0.2-0.8); MONOCYTES % 14.1 % (4.4-11.3); NEUTROPHILS # (AUTO) 4.9 (2.1-6.9); NEUTROPHILS % 64.4 % (38.7-80.0); PLATELET COUNT 250 x10e3/uL (140-360); RED BLOOD COUNT 3.34 x10e6/uL (3.6-5.1); RED CELL DISTRIBUTION WIDTH 13.6 % (11.7-14.4)
[2018-05-18] MEDS: D5NS/KCL 20MEQ 1,000 ML IV SCH (06:30)
[2018-05-18 06:39] LABS: ALANINE AMINOTRANSFERASE 13 IU/L (0-55); ALBUMIN 2.5 g/dL (3.5-5.0); ALBUMIN/GLOBULIN RATIO 1.1 (0.8-2.0); ALKALINE PHOSPHATASE 43 IU/L (40-150); ANION GAP 9.3 mmol/L (8-16); BLOOD UREA NITROGEN < 5 mg/dL (7-26); CALCIUM 9.1 mg/dL (8.4-10.2); CARBON DIOXIDE 26 mmol/L (22-29); CHLORIDE 107 mmol/L (98-107); CREATININE, SERUM 0.68 mg/dL (0.57-1.11); EST GLOMERULAR FILTRATION RATE > 60 ML/MIN (60-); GLUCOSE 109 mg/dL (74-118); POTASSIUM 3.3 mmol/L (3.5-5.1); SODIUM 139 mmol/L (136-145)
[2018-05-18 06:46] LABS: BUN/CREATININE RATIO 7 (6-25)
[2018-05-18] MEDS: BALSAM PERU/CASTOR OIL 5 GM OINT...G. TP SCH (08:45)
[2018-05-18] MEDS ORDERED: POTASSIUM CHLORIDE 20MEQ/100ML 100 ML IV ONE (10:15)
[2018-05-18] MEDS: CEFEPIME HCL 1 GM VIAL IV SCH ×2 (10:20→23:09)
[2018-05-18] MEDS ORDERED: SODIUM CHLORIDE 0.9% 1000ML 1,000 ML ONE (11:40)
[2018-05-18] MEDS ORDERED: HEPARIN SOD/SOD CHLORIDE 1,000 ML ONE (11:42)
[2018-05-18] MEDS ORDERED: HYDROMORPHONE 2MG/ML 2 MG/ML ML IV PRN ×2 (14:00)
[2018-05-18] MEDS ORDERED: ACETAMINOPHEN 1000 MG/100 ML IV PRN (14:00)
[2018-05-18] MEDS ORDERED: HYDROMORPHONE 1MG/1ML INJ IV PRN (14:00)
[2018-05-18] MEDS ORDERED: HYDROMORPHONE 2MG/ML 2 MG/ML ML ONE (14:02)
--- NOTE | 2018-05-18 15:42 | Operative Report ---
DATE OF PROCEDURE: May 18, 2018 PREOPERATIVE DIAGNOSIS: Small-bowel obstruction. POSTOPERATIVE DIAGNOSIS: Small-bowel closed-loop obstruction secondary to adhesions. OPERATION PERFORMED: Exploratory laparotomy. Extensive enterolysis and release of closed-loop small-bowel obstruction. ESCALATOR CONSTRUCTOR: Adrian Vásquez MD ANESTHESIA: General endotracheal. COMPLICATIONS: None. ESTIMATED BLOOD LOSS: Minimal. DESCRIPTION OF PROCEDURE: With the patient lying in bed in the supine position, under good general endotracheal anesthesia, the abdomen was prepped with Betadine solution and draped in the usual manner. A midline incision was made. It was carried down through the subcutaneous tissue and through the midline fascia. The peritoneum was opened. The abdomen was entered. Upon entering the abdominal cavity, there was a lot of adhesions to the anterior abdominal wall, which were slowly and carefully taken down. We were able to eventually get into the free abdominal cavity. Once this was done, exploration revealed a lot of adhesions of the colon all the way around, and these were taken down. Once we were able to do this, we actually were able to get to the small bowel. Just distal to the ligament of Treitz, there was a loop of bowel that had gone through an adhesion of other loops of small bowel creating a closed-loop obstruction with the bowel being obstructed at both ends. The distal bowel was totally decompressed. The proximal bowel was significantly dilated. The adhesions to the retroperitoneum of the small bowel were then slowly and carefully taken down, and the closed-loop obstruction was released. After this was done, a complete enterolysis was then performed of the rest of the bowel, making sure that all the small bowel was totally freed up all the way to the terminal ileum and the ileocecal valve. The colon was similarly freed up in order to allow for proper emptying of the colon. The colon was full of stool. After all of this was done, the whole abdomen was then copiously irrigated. Perfect hemostasis was ascertained. All of the excess fluid was aspirated. The abdomen was then closed in layers. The peritoneum and fascia were closed with a running suture of #1 Vicryl. The subcutaneous tissue was approximated with 3-0 chromic, and the skin was closed with clips. A dressing was applied. The sponge, lap and needle count was correct. The patient tolerated the procedure well and returned to the recovery room in stable condition. Job#: [id number]
--- NOTE | 2018-05-18 18:06 | Progress Note ---
DATE: May 18, 2018 CARDIOLOGY PROGRESS NOTE SUBJECTIVE: The patient denies chest pain or shortness of breath. She is about to go for exploratory laparotomy with possible small-bowel resection. OBJECTIVE VITAL SIGNS: Temperature 98.6, heart rate 63, respiratory rate 18, blood pressure 162/73, oxygen saturation 98% on 4 liters nasal cannula. GENERAL: Elderly woman in no acute distress. Awake and alert. LUNGS: Clear to auscultation bilaterally. No wheezes or crackles. CARDIOVASCULAR: Normal rate, regular rhythm. Systolic murmur 3/6, best appreciated at the upper sternal border. ABDOMEN: Soft. Nontender. EXTREMITIES: No edema. CARDIAC MEDICATIONS 1. Amiodarone 0.5 mg an hour. 2. Metoprolol tartrate 2.5 mg IV q.6 h. p.r.n. LABS: WBC 7.59, hemoglobin 10.7, hematocrit 32.4, platelets 250. Sodium 139, potassium 3.3, chloride 107, CO2 26, BUN less than 5, creatinine 0.68. TELEMETRY: Normal sinus rhythm. IMPRESSION 1. Paroxysmal atrial fibrillation, resolved. 2. History of aortic valve endocarditis, treated conservatively with antibiotics. 3. Hypertension. 4. History of deep venous thrombosis/pulmonary embolism, status post inferior vena cava filter. 5. Chronic venous insufficiency with history of brain aneurysm, status post ligation. RECOMMENDATIONS: Continue IV amiodarone to maintain sinus rhythm given plan for surgery. As the patient has no p.o. access, p.r.n. IV metoprolol as necessary. Once the patient is cleared for p.o. intake, will resume her home medications. Add p.o. metoprolol and amiodarone at that time. Thank you for this consult. We will continue to follow. Job#: [id number]
[2018-05-18] MEDS ORDERED: FENTANYL CITRATE/PF 100MCG/2 ML INJ ONE (19:12)
[2018-05-18] MEDS ORDERED: GLYCOPYRROLATE INJ 1MG/ 5 ML SYR ONE (19:37)
[2018-05-18] MEDS ORDERED: ONDANSETRON HCL INJ 2 MG/ML VIAL ONE (19:37)
[2018-05-18] MEDS ORDERED: LIDOCAINE HCL 2% LOCAL INJ 5 ML SDV VIAL INJ ONE (19:37)
[2018-05-18] MEDS ORDERED: SEVOFLURANE INHAL SOLN 250 ML PEN BTL ONE (19:37)
[2018-05-18] MEDS ORDERED: NEOSTIGMINE 5 MG/5ML SYR ONE (19:37)
[2018-05-18] MEDS ORDERED: EPHEDRINE SULFATE INJ 50 MG/10 ML SYR ONE (19:37)
[2018-05-18] MEDS ORDERED: DEXAMETHASONE SOD PHOS INJ 4 MG/ML VIAL ONE (19:37)
[2018-05-18] MEDS ORDERED: PHENYLEPHRINE HCL 1% 10 MG/ML VIAL ONE (19:37)
[2018-05-18] MEDS ORDERED: SUCCINYLCHOLINE 200 MG/10 ML SYR ONE (19:37)
[2018-05-18] MEDS ORDERED: VASOPRESSIN INJ 20 UNIT/ML VIAL ONE (19:37)
[2018-05-18] MEDS ORDERED: PROPOFOL IV EMULSION 10 MG/ML 20 ML VIAL ONE (19:37)
[2018-05-18] MEDS ORDERED: ROCURONIUM BROMIDE 10 MG/ML 5ML VIAL ONE (19:37)
[2018-05-18] MEDS: CENTRAL TPN FORMULA 1 BAG IV SCH (21:01)
[2018-05-18] MEDS: PANTOPRAZOLE 40 MG 10ML VIAL IV SCH (23:09)
[2018-05-19] VITALS (63 sets, daily range): BP systolic 98–169; BP diastolic 57–99
[2018-05-19] MEDS: VANCOMYCIN 1GM/NS 250 ML 250 ML IV SCH ×3 (00:17→22:28)
[2018-05-19] MEDS: SODIUM CHLORIDE 0.9% 250ML IRRIG IR SCH ×6 (01:59→21:11)
[2018-05-19] MEDS: HYDROMORPHONE 2MG/ML 2 MG/ML ML IV PRN ×5 (02:04→21:05)
[2018-05-19 06:11] LABS: BASOPHILS % 0.1 % (0.0-1.0); HEMATOCRIT 33.5 % (34.2-44.1); HEMOGLOBIN 11.1 g/dL (12.0-16.0); LYMPHOCYTES # (AUTO) 0.8 (1.0-3.2); LYMPHOCYTES % 3.7 % (18.0-39.1); MEAN CORPUSCULAR HEMOGLOBIN 32.5 pg (28-32); MEAN CORPUSCULAR HGB CONC 33.1 g/dL (31-35); MONOCYTES # (AUTO) 2.2 (0.2-0.8); MONOCYTES % 10.5 % (4.4-11.3); NEUTROPHILS # (AUTO) 17.9 (2.1-6.9); NEUTROPHILS % 84.9 % (38.7-80.0); PLATELET COUNT 319 x10e3/uL (140-360); RED BLOOD COUNT 3.42 x10e6/uL (3.6-5.1); RED CELL DISTRIBUTION WIDTH 13.6 % (11.7-14.4)
[2018-05-19 06:47] LABS: ALANINE AMINOTRANSFERASE 12 IU/L (0-55); ALBUMIN 2.2 g/dL (3.5-5.0); ALBUMIN/GLOBULIN RATIO 0.9 (0.8-2.0); ALKALINE PHOSPHATASE 40 IU/L (40-150); ANION GAP 10.3 mmol/L (8-16); BLOOD UREA NITROGEN 11 mg/dL (7-26); BUN/CREATININE RATIO 15 (6-25); CARBON DIOXIDE 23 mmol/L (22-29); CHLORIDE 106 mmol/L (98-107); CREATININE, SERUM 0.75 mg/dL (0.57-1.11); EST GLOMERULAR FILTRATION RATE > 60 ML/MIN (60-); GLUCOSE 273 mg/dL (74-118); SODIUM 135 mmol/L (136-145)
[2018-05-19 06:48] LABS: POTASSIUM 4.3 mmol/L (3.5-5.1)
[2018-05-19] MEDS: D5NS/KCL 20MEQ 1,000 ML IV SCH (09:43)
[2018-05-19] MEDS: BALSAM PERU/CASTOR OIL 5 GM OINT...G. TP SCH (09:44)
[2018-05-19] MEDS ORDERED: SOD PHOSPHATE/SOD BIPHOSPHATE ENEMA 132 ML BTL PR ONE ×2 (10:20→14:00)
[2018-05-19] MEDS: CEFEPIME HCL 1 GM VIAL IV SCH ×2 (10:30→22:28)
[2018-05-19 12:49] LABS: LYMPHOCYTES % (MANUAL) 3 % (19-48); MONOCYTES % (MANUAL) 6 % (3.4-9.0); NEUTROPHILS % (MANUAL) 90 % (40-74); PLATELET ESTIMATE ADEQUATE; PLATELET MORPHOLOGY COMMENT NORMAL; RBC MORPHOLOGY COMMENT NORMAL
[2018-05-19] MEDS: AMIODARONE 900MG 500 ML IV SCH (18:52)
--- NOTE | 2018-05-19 18:55 | Progress Note ---
DATE: May 19, 2018 NEPHROLOGY PROGRESS NOTE SUBJECTIVE: Her abdominal surgery yesterday without any significant complaints. Reports having some abdominal pain and not feeling good after surgery. Denies any chest pain or shortness of breath. OBJECTIVE VITAL SIGNS: Temperature 98.6, pulse 77, respiratory rate 18, satting 95% on room air, blood pressure 142/54. GENERAL: Elderly white female, thin and ill-appearing. CARDIOVASCULAR: Regular rate and rhythm. A 2/6 right upper sternal border murmur radiating to the carotid consistent with aortic stenosis. Palpable radial pulses. Palpable carotid pulses. LUNGS: Clear to auscultation bilaterally. Poor respiratory effort. ABDOMEN: Soft. Mildly tender diffusely. No rebound or guarding. Nondistended. NEURO/PSYCH: Alert and oriented to person, place and time. LABORATORY DATA: Reviewed. CARDIAC MEDICATIONS: Reviewed. Telemetry data reviewed. ASSESSMENT AND PLAN 1. Paroxysmal atrial fibrillation. 2. History of aortic valve endocarditis, treated conservatively with antibiotics. 3. Moderate aortic stenosis. 4. Hypertension. 5. History of deep venous thrombosis/pulmonary embolism, status post inferior vena cava filter. 6. Chronic venous insufficiency. 7. History of brain aneurysm, status post ligation. RECOMMENDATIONS: Continue IV amiodarone while the patient is n.p.o. to keep her in sinus rhythm. Once the patient is able to take p.o. intake, will receive oral medicines. No anticoagulation at this time due to history of brain aneurysm and bleeding, and recent surgery. Thank you for this consult. Will continue to follow. Job#: [id number] JUANITA
[2018-05-19] MEDS: SODIUM CHLORIDE 0.9% 1000ML 1,000 ML IV SCH (19:45)
[2018-05-19] MEDS: CENTRAL TPN FORMULA 1 BAG IV SCH (20:30)
[2018-05-19] MEDS: PANTOPRAZOLE 40 MG 10ML VIAL IV SCH (21:11)
[2018-05-19] MEDS: BISACODYL 10 MG SUPP PR SCH (21:11)
[2018-05-20] MEDS: SODIUM CHLORIDE 0.9% 250ML IRRIG IR SCH ×6 (01:43→21:33)
[2018-05-20 04:36] VITALS: BP 150/66
[2018-05-20] MEDS: HYDROMORPHONE 2MG/ML 2 MG/ML ML IV PRN ×3 (06:15→20:15)
[2018-05-20] MEDS: ONDANSETRON HCL INJ 2 MG/ML VIAL IV PRN (06:18)
[2018-05-20 06:45] LABS: BASOPHILS # (AUTO) 0.1 (0.0-0.1); BASOPHILS % 0.4 % (0.0-1.0); EOSINOPHILS # (AUTO) 0.3 (0.0-0.4); EOSINOPHILS % 2.2 % (0.0-6.0); HEMATOCRIT 31.3 % (34.2-44.1); HEMOGLOBIN 10.4 g/dL (12.0-16.0); LYMPHOCYTES # (AUTO) 1.2 (1.0-3.2); LYMPHOCYTES % 8.2 % (18.0-39.1); MEAN CORPUSCULAR HEMOGLOBIN 32.7 pg (28-32); MEAN CORPUSCULAR HGB CONC 33.2 g/dL (31-35); MEAN CORPUSCULAR VOLUME 98.4 fL (81-99); MONOCYTES # (AUTO) 1.9 (0.2-0.8); MONOCYTES % 13.3 % (4.4-11.3); NEUTROPHILS # (AUTO) 10.6 (2.1-6.9); NEUTROPHILS % 74.6 % (38.7-80.0); PLATELET COUNT 309 x10e3/uL (140-360); RED BLOOD COUNT 3.18 x10e6/uL (3.6-5.1)
[2018-05-20 08:00] VITALS: BP 130/61
[2018-05-20 08:21] LABS: ALANINE AMINOTRANSFERASE 10 IU/L (0-55); ALBUMIN 2.1 g/dL (3.5-5.0); ALBUMIN/GLOBULIN RATIO 0.8 (0.8-2.0); ALKALINE PHOSPHATASE 49 IU/L (40-150); ANION GAP 8.2 mmol/L (8-16); BLOOD UREA NITROGEN 17 mg/dL (7-26); BUN/CREATININE RATIO 25 (6-25); CALCIUM 8.6 mg/dL (8.4-10.2); CARBON DIOXIDE 24 mmol/L (22-29); CHLORIDE 106 mmol/L (98-107); CREATININE, SERUM 0.69 mg/dL (0.57-1.11); EST GLOMERULAR FILTRATION RATE > 60 ML/MIN (60-); GLUCOSE 119 mg/dL (74-118); POTASSIUM 3.2 mmol/L (3.5-5.1); SODIUM 135 mmol/L (136-145)
[2018-05-20] MEDS: AMIODARONE 900MG 500 ML IV SCH (09:00)
[2018-05-20] MEDS: BALSAM PERU/CASTOR OIL 5 GM OINT...G. TP SCH (09:00)
[2018-05-20 09:21] LABS: EOSINOPHILS % (MANUAL) 5 % (0-7); LYMPHOCYTES % (MANUAL) 8 % (19-48); MONOCYTES % (MANUAL) 14 % (3.4-9.0); NEUTROPHILS % (MANUAL) 73 % (40-74)
[2018-05-20 09:22] LABS: ANISOCYTOSIS SLIGHT; HYPOCHROMASIA SLIGHT; PLATELET ESTIMATE ADEQUATE; PLATELET MORPHOLOGY COMMENT NORMAL; RBC MORPHOLOGY COMMENT NORMAL
--- NOTE | 2018-05-20 09:49 | Progress Note ---
DATE: May 20, 2018 CARDIOLOGY PROGRESS NOTE SUBJECTIVE: No major events overnight. Patient was transferred out of the ICU. OBJECTIVE VITAL SIGNS: Temperature 99.7, pulse 77, respiratory rate 15, blood pressure 147/62, satting 96% on 2 L nasal cannula. GENERAL: Elderly white female, thin and ill-appearing. CARDIOVASCULAR: Regular rate and rhythm. A 2/6 systolic murmur at right upper sternal border radiating into the carotids consistent with aortic stenosis. Palpable radial pulses. Palpable carotid pulses. LUNGS: Clear to auscultation bilaterally. Poor respiratory effort. ABDOMEN: Soft, mildly tender diffusely. Postsurgical dressing in place. No rebound. No guarding. NEURO AND PSYCH: Alert and oriented to person, place, and time. LABORATORY DATA: Reviewed. CARDIAC MEDICATIONS: Reviewed. Telemetry data reviewed. Shows normal sinus rhythm. ASSESSMENT AND PLAN 1. Paroxysmal atrial fibrillation. 2. History of aortic valve endocarditis, treated conservative with antibiotics. 3. Moderate aortic stenosis. 4. Hypertension. 5. History of deep venous thrombosis and pulmonary embolism, status post inferior vena cava filter. 6. Chronic venous insufficiency. 7. History of brain aneurysm, status post ligation. PLAN: Continue IV amiodarone while the patient is n.p.o. to keep her in sinus rhythm. Once the patient is able to take p.o., will resume her oral cardiovascular medications. No anticoagulation given recent postsurgical status, open abdominal surgery. Thank you for this consult. Will continue to follow. Job#: [id number] JUANITA
[2018-05-20] MEDS: CEFEPIME HCL 1 GM VIAL IV SCH ×2 (11:00→22:58)
[2018-05-20 12:00] VITALS: BP 163/71
[2018-05-20] MEDS: VANCOMYCIN 1GM/NS 250 ML 250 ML IV SCH ×2 (12:00→22:58)
[2018-05-20] MEDS: BISACODYL 10 MG SUPP PR SCH ×3 (14:17→21:33)
[2018-05-20] MEDS: SODIUM CHLORIDE 0.9% 1000ML 1,000 ML IV SCH (15:00)
[2018-05-20] MEDS ORDERED: POTASSIUM CHLORIDE 20MEQ/100ML 100 ML IV ONE (15:30)
[2018-05-20] MEDS ORDERED: SODIUM CHLORIDE 0.9% 250ML 250 ML ONE (15:34)
[2018-05-20 16:00] VITALS: BP 137/62
[2018-05-20 16:46] LABS: ANION GAP 9.3 mmol/L (8-16); BLOOD UREA NITROGEN 16 mg/dL (7-26); BUN/CREATININE RATIO 25 (6-25); CALCIUM 8.6 mg/dL (8.4-10.2); CARBON DIOXIDE 24 mmol/L (22-29); CHLORIDE 105 mmol/L (98-107); CREATININE, SERUM 0.64 mg/dL (0.57-1.11); EST GLOMERULAR FILTRATION RATE > 60 ML/MIN (60-); GLUCOSE 100 mg/dL (74-118); POTASSIUM 3.3 mmol/L (3.5-5.1); SODIUM 135 mmol/L (136-145)
[2018-05-20 19:52] VITALS: BP 167/70
[2018-05-20 20:00] VITALS: BP 167/70
[2018-05-20] MEDS: CENTRAL TPN FORMULA 1 BAG IV SCH (20:00)
[2018-05-20] MEDS: PANTOPRAZOLE 40 MG 10ML VIAL IV SCH (22:15)
[2018-05-21] VITALS (8 sets, daily range): BP systolic 142–157; BP diastolic 69–87
[2018-05-21] MEDS: SODIUM CHLORIDE 0.9% 250ML IRRIG IR SCH ×6 (02:00→22:00)
[2018-05-21] MEDS: AMIODARONE 900MG 500 ML IV SCH (04:40)
[2018-05-21 05:04] LABS: BASOPHILS % 0.3 % (0.0-1.0); EOSINOPHILS # (AUTO) 0.5 (0.0-0.4); EOSINOPHILS % 4.1 % (0.0-6.0); HEMATOCRIT 30.3 % (34.2-44.1); HEMOGLOBIN 10.1 g/dL (12.0-16.0); LYMPHOCYTES # (AUTO) 1.1 (1.0-3.2); LYMPHOCYTES % 9.2 % (18.0-39.1); MEAN CORPUSCULAR HEMOGLOBIN 32.6 pg (28-32); MEAN CORPUSCULAR HGB CONC 33.3 g/dL (31-35); MEAN CORPUSCULAR VOLUME 97.7 fL (81-99); MONOCYTES # (AUTO) 1.5 (0.2-0.8); MONOCYTES % 12.3 % (4.4-11.3); NEUTROPHILS # (AUTO) 8.9 (2.1-6.9); NEUTROPHILS % 73.1 % (38.7-80.0); PLATELET COUNT 305 x10e3/uL (140-360); RED CELL DISTRIBUTION WIDTH 13.8 % (11.7-14.4)
[2018-05-21 05:29] LABS: ALANINE AMINOTRANSFERASE 11 IU/L (0-55); ALBUMIN/GLOBULIN RATIO 0.7 (0.8-2.0); ALKALINE PHOSPHATASE 54 IU/L (40-150); ANION GAP 9.8 mmol/L (8-16); BLOOD UREA NITROGEN 15 mg/dL (7-26); BUN/CREATININE RATIO 23 (6-25); CARBON DIOXIDE 25 mmol/L (22-29); CHLORIDE 108 mmol/L (98-107); CREATININE, SERUM 0.66 mg/dL (0.57-1.11); EST GLOMERULAR FILTRATION RATE > 60 ML/MIN (60-); GLUCOSE 130 mg/dL (74-118); POTASSIUM 3.8 mmol/L (3.5-5.1); SODIUM 139 mmol/L (136-145)
[2018-05-21] MEDS: BISACODYL 10 MG SUPP PR SCH ×3 (08:52→22:00)
[2018-05-21] MEDS: ONDANSETRON HCL INJ 2 MG/ML VIAL IV PRN (09:08)
[2018-05-21] MEDS: HYDROMORPHONE 2MG/ML 2 MG/ML ML IV PRN ×2 (09:09→15:27)
[2018-05-21] MEDS: BALSAM PERU/CASTOR OIL 5 GM OINT...G. TP SCH (09:33)
[2018-05-21] MEDS: BALSAM PERU/CASTOR OIL 60 GM OINT...G. TP SCH (09:34)
[2018-05-21] MEDS: SODIUM CHLORIDE 0.9% 1000ML 1,000 ML IV SCH (11:00)
[2018-05-21] MEDS: CEFEPIME HCL 1 GM VIAL IV SCH ×2 (11:38→23:00)
[2018-05-21] MEDS: VANCOMYCIN 1GM/NS 250 ML 250 ML IV SCH ×2 (11:50→23:00)
[2018-05-21] MEDS ORDERED: MINERAL OIL 132 ML BTL PR SCH ×2 (13:00→15:00)
[2018-05-21] MEDS: MINERAL OIL 132 ML BTL PR SCH ×2 (15:27→22:00)
--- NOTE | 2018-05-21 17:53 | Progress Note ---
DATE: May 21, 2018 CARDIOLOGY PROGRESS NOTE SUBJECTIVE: The patient denies chest pain or shortness of breath. She remains n.p.o. with NG tube in place. OBJECTIVE VITAL SIGNS: Temperature 98.2 degrees, pulse 70, respiratory rate 20, blood pressure 157/87, oxygen saturation 98% on 2 liters nasal cannula. GENERAL: Elderly woman, frail, awake and alert, in no acute distress. LUNGS: Clear to auscultation bilaterally. No wheezes or crackles. CARDIOVASCULAR: Normal rate, regular rhythm. 2/6 systolic murmur at the right upper sternal border. ABDOMEN: Soft. Mildly tender to palpation. EXTREMITIES: No edema. CARDIAC MEDICATIONS: Amiodarone 0.5 mg per minute. LABS: WBC 12.22, hemoglobin 10.1, hematocrit 30.3, platelets 305. Sodium 139, potassium 3.8, chloride 108, CO2 of 25, BUN 15, creatinine 0.66. TELEMETRY: Normal sinus rhythm. IMPRESSION 1. Paroxysmal atrial fibrillation. 2. History of aortic valve endocarditis, status post conservative treatment with IV antibiotics. 3. Moderate aortic stenosis. 4. Hypertension. 5. History of deep venous thrombosis and pulmonary embolism, status post inferior vena cava filter. 6. Chronic venous insufficiency. 7. History of brain aneurysm, status post ligation. 8. Small bowel obstruction, status post exploratory laparotomy and enterolysis with release of closed loop small bowel obstruction. RECOMMENDATIONS: Continue intravenous amiodarone while patient is n.p.o. to keep her sinus rhythm. No anticoagulation at this time given recent surgery. Plan to resume once hemostasis achieve from a surgical standpoint and patient can tolerate p.o. intake. At this time, plan to start p.o. metoprolol and p.o. amiodarone. However, patient is currently requiring TPN. Monitor patient on telemetry. Thank you for this consult. We will continue to follow. Job#: [id number] MATTHIEU BRADY
[2018-05-21] MEDS: CENTRAL TPN FORMULA 1 BAG IV SCH (21:00)
[2018-05-21] MEDS: PANTOPRAZOLE 40 MG 10ML VIAL IV SCH (22:15)
[2018-05-22] VITALS: BP 144/61
[2018-05-22] MEDS: SODIUM CHLORIDE 0.9% 250ML IRRIG IR SCH ×5 (02:00→13:54)
[2018-05-22 04:00] VITALS: BP 147/67
[2018-05-22] MEDS: HYDROMORPHONE 2MG/ML 2 MG/ML ML IV PRN ×3 (04:00→19:16)
[2018-05-22 09:55] VITALS: BP 150/70
[2018-05-22] MEDS: MINERAL OIL 132 ML BTL PR SCH ×2 (10:30→17:00)
[2018-05-22] MEDS: BISACODYL 10 MG SUPP PR SCH (10:30)
[2018-05-22] MEDS: BALSAM PERU/CASTOR OIL 60 GM OINT...G. TP SCH (10:30)
[2018-05-22] MEDS: BALSAM PERU/CASTOR OIL 5 GM OINT...G. TP SCH (10:30)
[2018-05-22] MEDS: AMIODARONE 900MG 500 ML IV SCH (13:54)
[2018-05-22 15:16] LABS: BASOPHILS % 0.4 % (0.0-1.0); EOSINOPHILS # (AUTO) 0.4 (0.0-0.4); EOSINOPHILS % 4.1 % (0.0-6.0); HEMATOCRIT 32.2 % (34.2-44.1); HEMOGLOBIN 10.5 g/dL (12.0-16.0); LYMPHOCYTES # (AUTO) 0.9 (1.0-3.2); LYMPHOCYTES % 10.1 % (18.0-39.1); MEAN CORPUSCULAR HEMOGLOBIN 32.4 pg (28-32); MEAN CORPUSCULAR HGB CONC 32.6 g/dL (31-35); MEAN CORPUSCULAR VOLUME 99.4 fL (81-99); MONOCYTES % 11.1 % (4.4-11.3); NEUTROPHILS # (AUTO) 6.7 (2.1-6.9); NEUTROPHILS % 72.9 % (38.7-80.0); PLATELET COUNT 345 x10e3/uL (140-360); RED BLOOD COUNT 3.24 x10e6/uL (3.6-5.1); RED CELL DISTRIBUTION WIDTH 13.6 % (11.7-14.4)
--- NOTE | 2018-05-22 15:37 | Progress Note ---
DATE: May 22, 2018 CARDIOLOGY PROGRESS NOTE SUBJECTIVE: The patient denies chest pain or shortness of breath. OBJECTIVE VITAL SIGNS: Temperature 97.5 degrees, pulse 65, respiratory rate 18, blood pressure 147/67, oxygen saturation 98% on 2 liters nasal cannula. GENERAL: Elderly woman, frail, in no acute distress, awake and alert. LUNGS: Clear to auscultation bilaterally. No wheezes or crackles. CARDIOVASCULAR: Normal rate, regular rhythm. 2/6 systolic murmur at the right upper sternal border. ABDOMEN: Soft. Mildly tender to palpation. EXTREMITIES: No edema. CARDIAC MEDICATIONS: Amiodarone 0.5 mg per minute. LABS: None today. TELEMETRY: Normal sinus rhythm. IMPRESSION 1. Paroxysmal atrial fibrillation, currently sinus rhythm. 2. History of aortic valve endocarditis, status post conservative treatment with IV antibiotics. 3. Moderate aortic stenosis. 4. Hypertension. 5. History of deep venous thrombosis/pulmonary embolism, status post inferior vena cava filter. 6. Chronic venous insufficiency. 7. History of brain aneurysm, status post ligation. 8. Small bowel obstruction, status post exploratory laparotomy and enterolysis with release of closed loop small bowel obstruction. RECOMMENDATIONS: Continue intravenous amiodarone while patient is n.p.o. to keep her sinus rhythm. No anticoagulation at this time given recent surgery. Would like to start once hemostasis achieved from a surgical standpoint and patient can tolerate p.o. intake. Transition to p.o. metoprolol and amiodarone once cleared from surgery and no longer on TPN. Keep patient on telemetry. Thank you for this consult. We will continue to follow. Job#: [id number]
--- NOTE | 2018-05-22 16:25 | Progress Note ---
DATE: May 22, 2018 INTERNAL MEDICINE PROGRESS NOTE SUBJECTIVE: Patient is doing well. No significant complaints today. PHYSICAL EXAM VITAL SIGNS: Blood pressure 147/67, temperature 97.5, heart rate 65 per minute, respiratory rate 18 per minute, oxygen saturation 98%. HEART: Irregularly irregular heart rate. Normal S1, S2 sounds. LUNGS: Clear bilaterally. ABDOMEN: Soft. EXTREMITIES: Show no evidence of cyanosis, edema or trauma. LABORATORY DATA: On the BMP, sodium 139, potassium 3.8, chloride 108, CO2 of 25, BUN 15, creatinine 0.66, glucose 130. On the CBC, white blood count 12.2, hemoglobin 10.1, hematocrit 30.3, platelet count 305,000. PT 13.0, INR 0.90, PTT 32.2. AST 12, ALT 11, total bilirubin 0.7, alkaline phosphatase 54. FINAL IMPRESSION 1. Small bowel obstruction, status post small bowel resection. 2. Lower pneumonia. 3. Chronic anemia. 4. Chronic atrial fibrillation. 5. Sepsis. PLAN OF TREATMENT: Continue amiodarone daily and TPN. Continue with metoprolol 2.5 mg IV q.6 hours as needed. Balsam [place]-castor oil daily. Protonix 40 mg IV once a day. Mineral oil twice a day, Dilaudid 0.5 mg IV q.[address] Margarito Vásquez is seeing her from the surgical point of view, he will decide when the patient can eat. Job#: [id number]
[2018-05-22 17:55] VITALS: BP 178/71
[2018-05-22] MEDS ORDERED: AMIODARONE HCL 200 MG TAB PO SCH (18:00)
[2018-05-22] MEDS ORDERED: METOPROLOL TARTRATE 25 MG TAB PO SCH (18:00)
[2018-05-22 18:38] VITALS: BP 178/71
[2018-05-22] MEDS: ONDANSETRON HCL INJ 2 MG/ML VIAL IV PRN (19:17)
[2018-05-22 19:49] VITALS: BP 145/65
[2018-05-22] MEDS: CENTRAL TPN FORMULA 1 BAG IV SCH (20:12)
[2018-05-22] MEDS: PANTOPRAZOLE 40 MG 10ML VIAL IV SCH (21:22)
[2018-05-23] VITALS (7 sets, daily range): BP systolic 118–153; BP diastolic 59–77
[2018-05-23] MEDS: AMIODARONE HCL 200 MG TAB PO SCH ×2 (10:00→21:06)
[2018-05-23] MEDS: METOPROLOL TARTRATE 25 MG TAB PO SCH ×2 (10:47→21:06)
--- NOTE | 2018-05-23 14:43 | Progress Note ---
DATE: May 23, 2018 INTERNAL MEDICINE PROGRESS NOTE SUBJECTIVE: She is doing better. No complaints today. PHYSICAL EXAM VITAL SIGNS: Blood pressure 133/77, temperature 98 degrees, heart rate is 71 per minute, respiratory rate 20 per minute, oxygen saturation 98%. HEART: Shows regular rhythm. Normal S1, S2 sounds. LUNGS: Clear bilaterally. ABDOMEN: Soft. He had incisions from the abdominal surgery. LABORATORY DATA: On the BMP, sodium 139, potassium 3.8, chloride 108, CO2 25, BUN 15, creatinine 0.66, glucose 130. CBC showed white blood count 9.17, hemoglobin 10.5, hematocrit 32.2, platelet count 345,000. PT 13.0, INR 0.90, PTT 32.2. AST 12, ALT 11, total bilirubin 0.7, alkaline phosphatase 54. FINAL IMPRESSION: On this patient is 1. Small-bowel resection because of small-bowel obstruction. 2. Lobar pneumonia. 3. Chronic anemia. 4. Chronic atrial fibrillation. 5. Sepsis. PLAN OF TREATMENT: She is tolerating liquid diet. Continue Zofran 4 mg IV q.4 hours. Continue TPN. Continue metoprolol 2.5 mg IV q.6 hours as needed, Protonix 40 mg IV daily, amiodarone 200 mg twice a day, Tylenol 650 mg q.6 hours as needed. Balsam [place]-castor oil daily. Dilaudid 0.5 mg q.3 hours as needed for severe pain, metoprolol 12.5 mg twice a day. Advance diet as tolerated and as directed by the surgeon. Job#: [id number]
--- NOTE | 2018-05-23 18:28 | Progress Note ---
DATE: May 23, 2018 CARDIOLOGY PROGRESS NOTE SUBJECTIVE: The patient denies chest pain or shortness of breath. OBJECTIVE VITAL SIGNS: Temperature 98.2 degrees, pulse 60, respiratory rate 20, blood pressure 140/59, oxygen saturation 100% on 2 liters nasal cannula. GENERAL: Elderly woman, in no acute distress, frail, awake and alert. LUNGS: Clear to auscultation bilaterally. No wheezes or crackles. CARDIOVASCULAR: Normal rate, regular rhythm. 2/6 systolic murmur at the right upper sternal border. ABDOMEN: Soft. Mildly tender to palpation. EXTREMITIES: No edema. CARDIAC MEDICATIONS 1. Metoprolol tartrate 12.5 mg q.12 hours. 2. Amiodarone 200 mg p.o. q.12 hours. LABS: None today. TELEMETRY: Normal sinus rhythm. IMPRESSION 1. Paroxysmal atrial fibrillation, currently sinus rhythm. 2. History of aortic valve endocarditis, status post conservative treatment with IV antibiotics. 3. Moderate aortic stenosis. 4. Hypertension. 5. History of deep venous thrombosis/pulmonary embolism, status post inferior vena cava filter. 6. Chronic venous insufficiency. 7. History of brain aneurysm, status post ligation. 8. Small bowel obstruction, status post exploratory laparotomy and enterolysis with release of closed loop small bowel obstruction. RECOMMENDATIONS: Patient has been transitioned to p.o. amiodarone and metoprolol. No anticoagulation at this time given recent surgery. Would like to start once agreeable from a surgical standpoint. Patient's diet has been advanced to clear liquids, may be able to initiate anticoagulation shortly. Await decision by surgery. Monitor patient on telemetry. Thank you for this consult. We will continue to follow. Job#: [id number] VAS
[2018-05-23] MEDS: HYDROMORPHONE 2MG/ML 2 MG/ML ML IV PRN (18:43)
[2018-05-23] MEDS: ONDANSETRON HCL INJ 2 MG/ML VIAL IV PRN (18:44)
[2018-05-23] MEDS: PANTOPRAZOLE 40 MG 10ML VIAL IV SCH (21:07)
[2018-05-23] MEDS: BALSAM PERU/CASTOR OIL 60 GM OINT...G. TP SCH (21:07)
[2018-05-23] MEDS: CENTRAL TPN FORMULA 1 BAG IV SCH (23:18)
[2018-05-24] VITALS (8 sets, daily range): BP systolic 114–156; BP diastolic 53–66
[2018-05-24 05:42] LABS: ALANINE AMINOTRANSFERASE 9 IU/L (0-55); ALBUMIN 2.2 g/dL (3.5-5.0); ALBUMIN/GLOBULIN RATIO 0.8 (0.8-2.0); ALKALINE PHOSPHATASE 70 IU/L (40-150); ANION GAP 10.5 mmol/L (8-16); BLOOD UREA NITROGEN 16 mg/dL (7-26); BUN/CREATININE RATIO 22 (6-25); CALCIUM 9.6 mg/dL (8.4-10.2); CARBON DIOXIDE 27 mmol/L (22-29); CHLORIDE 105 mmol/L (98-107); CREATININE, SERUM 0.72 mg/dL (0.57-1.11); EST GLOMERULAR FILTRATION RATE > 60 ML/MIN (60-); GLUCOSE 122 mg/dL (74-118); POTASSIUM 4.5 mmol/L (3.5-5.1); SODIUM 138 mmol/L (136-145)
[2018-05-24 07:32] LABS: BASOPHILS % 0.5 % (0.0-1.0); EOSINOPHILS # (AUTO) 0.3 (0.0-0.4); EOSINOPHILS % 3.4 % (0.0-6.0); HEMATOCRIT 30.7 % (34.2-44.1); HEMOGLOBIN 10.2 g/dL (12.0-16.0); LYMPHOCYTES # (AUTO) 1.3 (1.0-3.2); LYMPHOCYTES % 15.3 % (18.0-39.1); MEAN CORPUSCULAR HEMOGLOBIN 32.8 pg (28-32); MEAN CORPUSCULAR HGB CONC 33.2 g/dL (31-35); MEAN CORPUSCULAR VOLUME 98.7 fL (81-99); MONOCYTES # (AUTO) 0.9 (0.2-0.8); MONOCYTES % 10.4 % (4.4-11.3); NEUTROPHILS # (AUTO) 5.9 (2.1-6.9); PLATELET COUNT 365 x10e3/uL (140-360); RED BLOOD COUNT 3.11 x10e6/uL (3.6-5.1); RED CELL DISTRIBUTION WIDTH 13.9 % (11.7-14.4)
[2018-05-24] MEDS: METOPROLOL TARTRATE 25 MG TAB PO SCH ×2 (10:00→20:30)
[2018-05-24] MEDS: AMIODARONE HCL 200 MG TAB PO SCH ×2 (10:00→20:30)
--- NOTE | 2018-05-24 16:44 | Diagnostic Imaging Report ---
EXAMINATION: PA and lateral views of the chest. COMPARISON: AP chest 05/17/2018 CLINICAL HISTORY: Shortness of breath, DISCUSSION: Exam mildly limited by patient position. Lines/tubes: Right-sided PICC line has distal tip projecting in the region of the mid SVC Lungs: Lungs are relatively well inflated. Left retrocardiac opacity with blunting of the left lateral and posterior costophrenic sulci, left effusion and associated atelectasis. Right lung is grossly clear. Pleura: No pneumothorax. Heart and mediastinum: Cardiomediastinal silhouette is unremarkable. Pulmonary vasculature is normal. Bones and soft tissues: No acute bony abnormalities. Degenerative changes in the thoracic spine IMPRESSION: Right-sided pleural effusion and associated atelectasis and/or consolidation. Signed by: Dr. Rommel Dewitt M.D. on 05/24/2018 4:40 PM
[2018-05-24] MEDS: BALSAM PERU/CASTOR OIL 60 GM OINT...G. TP SCH (20:30)
[2018-05-24] MEDS: PANTOPRAZOLE 40 MG 10ML VIAL IV SCH (20:47)
[2018-05-24] MEDS: CENTRAL TPN FORMULA 1 BAG IV SCH (20:48)
--- NOTE | 2018-05-24 22:30 | Progress Note ---
DATE: May 24, 2018 CARDIOLOGY PROGRESS NOTE SUBJECTIVE: No major events overnight. Tolerating a liquid diet, walking in the halls today, about 100 feet or so. No chest pain, no shortness of breath. Remains in sinus rhythm. OBJECTIVE VITAL SIGNS: Temperature afebrile. Heart rate 61, blood pressure 124/82, satting 95% on nasal cannula. GENERAL: Thin, white female, in no acute distress. CARDIOVASCULAR: Regular rate and rhythm. Right upper sternal 2/6 systolic murmur radiating to the carotids. Palpable carotid pulses. Palpable radial pulses. No lower extremity edema. LUNGS: Clear to auscultation bilaterally. No respiratory distress. ABDOMEN: Soft, dressing in place. Mildly tender. Normal bowel sounds. NEURO AND PSYCH: Alert and oriented to person, place, and time. Normal affect. LABORATORY DATA: Reviewed. IMAGING DATA: Reviewed. TELEMETRY DATA: Reviewed. Shows normal sinus rhythm. Heart rates in the 60s to 70s. ASSESSMENT AND PLAN 1. Paroxysmal atrial fibrillation. 2. Moderate aortic stenosis. 3. History of deep venous thrombosis, status post inferior vena cava filter. PLAN: Continue oral metoprolol and amiodarone for now in the perioperative period to maintain sinus rhythm on an appropriate rate control and apixaban day prior to discharge. Thank you for this consult. Will continue to follow. Job#: [id number] CQ
[2018-05-25] VITALS (13 sets, daily range): BP systolic 89–184; BP diastolic 53–140
[2018-05-25 06:39] LABS: BASOPHILS # (AUTO) 0.1 (0.0-0.1); BASOPHILS % 0.5 % (0.0-1.0); EOSINOPHILS # (AUTO) 0.3 (0.0-0.4); EOSINOPHILS % 3.1 % (0.0-6.0); HEMATOCRIT 30.6 % (34.2-44.1); HEMOGLOBIN 10.3 g/dL (12.0-16.0); LYMPHOCYTES # (AUTO) 1.5 (1.0-3.2); LYMPHOCYTES % 15.5 % (18.0-39.1); MEAN CORPUSCULAR HEMOGLOBIN 32.9 pg (28-32); MEAN CORPUSCULAR HGB CONC 33.7 g/dL (31-35); MEAN CORPUSCULAR VOLUME 97.8 fL (81-99); MONOCYTES # (AUTO) 0.8 (0.2-0.8); MONOCYTES % 8.6 % (4.4-11.3); NEUTROPHILS # (AUTO) 6.8 (2.1-6.9); NEUTROPHILS % 71.4 % (38.7-80.0); PLATELET COUNT 355 x10e3/uL (140-360); RED BLOOD COUNT 3.13 x10e6/uL (3.6-5.1)
[2018-05-25 06:57] LABS: ANION GAP 12.5 mmol/L (8-16); BLOOD UREA NITROGEN 15 mg/dL (7-26); BUN/CREATININE RATIO 20 (6-25); CALCIUM 9.8 mg/dL (8.4-10.2); CARBON DIOXIDE 25 mmol/L (22-29); CHLORIDE 104 mmol/L (98-107); CREATININE, SERUM 0.75 mg/dL (0.57-1.11); EST GLOMERULAR FILTRATION RATE > 60 ML/MIN (60-); GLUCOSE 112 mg/dL (74-118); POTASSIUM 4.5 mmol/L (3.5-5.1); SODIUM 137 mmol/L (136-145)
[2018-05-25] MEDS: AMIODARONE HCL 200 MG TAB PO SCH ×2 (09:55→20:52)
[2018-05-25] MEDS: METOPROLOL TARTRATE 25 MG TAB PO SCH ×2 (09:55→20:52)
[2018-05-25 13:01] LABS: BASOPHILS # (AUTO) 0.1 (0.0-0.1); BASOPHILS % 0.5 % (0.0-1.0); EOSINOPHILS # (AUTO) 0.3 (0.0-0.4); EOSINOPHILS % 2.7 % (0.0-6.0); HEMATOCRIT 33.9 % (34.2-44.1); HEMOGLOBIN 11.2 g/dL (12.0-16.0); LYMPHOCYTES # (AUTO) 2.3 (1.0-3.2); LYMPHOCYTES % 17.7 % (18.0-39.1); MEAN CORPUSCULAR HEMOGLOBIN 32.3 pg (28-32); MEAN CORPUSCULAR VOLUME 97.7 fL (81-99); MONOCYTES # (AUTO) 1.1 (0.2-0.8); MONOCYTES % 8.5 % (4.4-11.3); NEUTROPHILS # (AUTO) 8.9 (2.1-6.9); NEUTROPHILS % 69.6 % (38.7-80.0); PLATELET COUNT 452 x10e3/uL (140-360); RED BLOOD COUNT 3.47 x10e6/uL (3.6-5.1)
[2018-05-25 13:05] LABS: INR 0.97; PROTHROMBIN TIME 13.8 seconds (11.9-14.5)
[2018-05-25 13:14] LABS: ALANINE AMINOTRANSFERASE 14 IU/L (0-55); ALBUMIN 2.9 g/dL (3.5-5.0); ALBUMIN/GLOBULIN RATIO 0.9 (0.8-2.0); ALKALINE PHOSPHATASE 82 IU/L (40-150); ANION GAP 13.5 mmol/L (8-16); BLOOD UREA NITROGEN 16 mg/dL (7-26); BUN/CREATININE RATIO 20 (6-25); CALCIUM 10.2 mg/dL (8.4-10.2); CARBON DIOXIDE 26 mmol/L (22-29); CHLORIDE 102 mmol/L (98-107); CREATININE, SERUM 0.79 mg/dL (0.57-1.11); EST GLOMERULAR FILTRATION RATE > 60 ML/MIN (60-); GLUCOSE 108 mg/dL (74-118); POTASSIUM 4.5 mmol/L (3.5-5.1); SODIUM 137 mmol/L (136-145)
[2018-05-25] MEDS: HYDROMORPHONE 2MG/ML 2 MG/ML ML IV PRN (13:15)
[2018-05-25] MEDS: ONDANSETRON HCL INJ 2 MG/ML VIAL IV PRN (13:15)
--- NOTE | 2018-05-25 15:34 | Progress Note ---
DATE: May 25, 2018 CARDIOLOGY PROGRESS NOTE SUBJECTIVE: Patient with nosebleed earlier today with significant bleeding requiring nasal packing and tamponade, now improved. Required dose of IV Dilaudid, and now is very sleepy and lethargic from this. OBJECTIVE VITAL SIGNS: Temperature 98.9, pulse 86, respiratory rate 25, blood pressure 175/140, satting 95% on room air. GENERAL: Sleepy elderly white female, frail and in no acute distress. CARDIOVASCULAR: Regular rate and rhythm. A 2/6 systolic murmur at right upper sternal border radiating to the carotids. Palpable carotid pulses. Palpable radial pulses. LUNGS: Clear to auscultation bilaterally. No wheezes. ABDOMEN: Soft, mildly tender, nondistended. Normal bowel sounds. EXTREMITIES: No edema. CARDIOVASCULAR MEDICATIONS: Reviewed. LABORATORY DATA: Reviewed. Telemetry data shows normal sinus rhythm. ASSESSMENT AND PLAN 1. Paroxysmal atrial fibrillation, currently in sinus rhythm. 2. History of aortic valve endocarditis: Status post conservative treatment with intravenous antibiotics. 3. Moderate aortic stenosis. 4. Hypertension. 5. History of deep venous thrombosis and pulmonary embolism: Status post inferior vena cava filter. 6. Chronic venous insufficiency. 7. History of brain aneurysm: Status post ligation. 8. Small-bowel obstruction: Status post exploratory laparotomy and enterolysis with release of closed loop small-bowel obstruction earlier this admission. 9. Severe epistaxis. ASSESSMENT AND PLAN: Continue current cardiac medications. Overall, doing better. Tolerated the surgery and perioperative period well from cardiovascular standpoint. Would like to restart her apixaban. However, given recent surgery and now today severe epistaxis, will hold off for several more days. Remains in sinus rhythm. Thank you for this consult. Will continue to follow. Job#: [id number] [place]
[2018-05-25 19:54] LABS: HEMATOCRIT 27.9 % (34.2-44.1); HEMOGLOBIN 9.2 g/dL (12.0-16.0)
[2018-05-25] MEDS ORDERED: CENTRAL TPN FORMULA 1 BAG IV SCH (20:17)
--- NOTE | 2018-05-25 20:30 | Consultation ---
DATE OF CONSULTATION: May 25, 2018 HISTORY OF PRESENT ILLNESS: I was kindly asked to see this pleasant 88-year-old woman for evaluation of epistaxis. Patient had no previous history of epistaxis and was in the hospital for abdominal disorder. She had a nasogastric tube placed for a period of approximately 10 days. Nasogastric tube was removed and the patient experienced brisk bilateral epistaxis, which was not controlled with topical therapy. I was called emergently to stop the bleeding. Her history of present illness, past medical history and past surgical history were reviewed in the chart. PHYSICAL EXAMINATION: She had a profuse nosebleed from both sides of the nose. Rodriguez-Synephrine was applied. The dose suctioned out. Afrin nasal spray was applied. She continued to have significant epistaxis. Examination: There was noted to be brisk epistaxis on both sides of her nose. The right side significantly worse than the left. There was fresh blood on the posterior pharyngeal wall and blood on multiple towels around the patient. Rodriguez-Synephrine was applied. The nose was suctioned out. Afrin nasal spray was applied and the nose was suctioned out again. She had continued epistaxis. On fiberoptic diagnostic rhinoscopy, there were no discrete bleeding points identified. She had bright red blood along the posterior pharyngeal wall. There was no palpable cervical adenopathy. RhinoRockets were inserted in both sides of the nose and pressure applied until the bleeding was controlled. ASSESSMENT: Bilateral epistaxis, probable posterior bleed. PLAN: 1. Continued observation with RhinoRockets in place with removal of the nasal packing based on clinical course. 2. Serial hemoglobin evaluation. Job#: [id number]
[2018-05-25] MEDS: PANTOPRAZOLE 40 MG 10ML VIAL IV SCH (20:52)
[2018-05-25] MEDS: BALSAM PERU/CASTOR OIL 60 GM OINT...G. TP SCH (20:52)
[2018-05-25] MEDS: LIDOCAINE HCL 2% 30 ML TUBE TOP SCH (21:58)
[2018-05-26] VITALS (15 sets, daily range): BP systolic 114–176; BP diastolic 60–92
[2018-05-26 00:05] LABS: HEMATOCRIT 27.7 % (34.2-44.1); HEMOGLOBIN 8.9 g/dL (12.0-16.0)
[2018-05-26 05:04] LABS: HEMATOCRIT 27.7 % (34.2-44.1); HEMOGLOBIN 9.1 g/dL (12.0-16.0)
[2018-05-26] MEDS: METOPROLOL TARTRATE 25 MG TAB PO SCH ×2 (09:00→21:07)
[2018-05-26] MEDS: AMIODARONE HCL 200 MG TAB PO SCH ×2 (09:00→21:07)
[2018-05-26] MEDS ORDERED: HYDROCODONE/APAP 5MG-325MG TAB PO ONE (09:45)
[2018-05-26] MEDS ORDERED: MORPHINE SULFATE 2 MG/ML SYR ONE (10:15)
[2018-05-26] MEDS ORDERED: ONDANSETRON HCL INJ 2 MG/ML VIAL IV STA (10:28)
[2018-05-26] MEDS ORDERED: MORPHINE SULFATE 2 MG/ML SYR IV STA (10:28)
[2018-05-26] MEDS: LIDOCAINE HCL 2% 30 ML TUBE TOP SCH ×2 (10:57→18:44)
[2018-05-26 12:31] LABS: HEMATOCRIT 28.3 % (34.2-44.1); HEMOGLOBIN 9.4 g/dL (12.0-16.0)
[2018-05-26] MEDS ORDERED: ACETAMINOPHEN 1000 MG/100 ML IV PRN (16:15)
[2018-05-26] MEDS: MORPHINE SULFATE 2 MG/ML SYR IV PRN ×2 (16:40→23:34)
[2018-05-26] MEDS: ONDANSETRON HCL INJ 2 MG/ML VIAL IV PRN ×2 (16:41→23:34)
[2018-05-26] MEDS: METOPROLOL TARTRATE INJ 1 MG/ML VIAL IV PRN (16:58)
[2018-05-26] MEDS ORDERED: CENTRAL TPN FORMULA 1 BAG IV SCH (20:00)
--- NOTE | 2018-05-26 20:09 | Progress Note ---
DATE: May 26, 2018 CARDIOLOGY PROGRESS NOTE SUBJECTIVE: Continues to have nosebleed. Nasal packing was restored this morning due to continuing nosebleed. Otherwise, no complaints. OBJECTIVE VITAL SIGNS: Temperature 99.6, pulse 93, respiratory rate 18, blood pressure 114/60, satting 98% on 2 liters nasal cannula. GENERAL: Elderly white female, frail, no acute distress. CARDIOVASCULAR: Regular rate and rhythm. A 2/6 systolic murmur right upper sternal border radiating to the carotids. Palpable carotid pulses. Palpable radial pulses. LUNGS: Clear to auscultation bilaterally. No wheezes. ABDOMEN: Soft, nontender, nondistended. Normal bowel sounds. EXTREMITIES: No edema. CARDIOVASCULAR MEDICATIONS: Reviewed. TELEMETRY DATA: Normal sinus rhythm with occasional sinus tachycardia. LABORATORY DATA: Reviewed. ASSESSMENT AND PLAN 1. Paroxysmal atrial fibrillation, currently in sinus rhythm. 2. History of aortic valve endocarditis, status post conservative treatment with intravenous antibiotics. 3. Moderate aortic stenosis. 4. Hypertension. 5. History of deep venous thrombosis and pulmonary embolism. 6. Chronic venous insufficiency. 7. History of brain aneurysm. 8. Small-bowel obstruction, status post exploratory laparotomy and enterolysis with release of closed-loop small-bowel obstruction earlier this admission. 9. Severe epistaxis. ASSESSMENT AND PLAN: Continue current cardiac medications. Overall doing better. Would like to resume her anticoagulation for atrial fibrillation and history of DVT. However, given ongoing epistaxis, will have to hold off until cleared by ENT for this. Thank you for this consult. Will continue to follow. Job#: [id number]
[2018-05-26 20:16] LABS: HEMATOCRIT 26.7 % (34.2-44.1); HEMOGLOBIN 8.9 g/dL (12.0-16.0)
[2018-05-26] MEDS: BALSAM PERU/CASTOR OIL 60 GM OINT...G. TP SCH (21:07)
[2018-05-26] MEDS: CENTRAL TPN FORMULA 1 BAG IV SCH (21:10)
[2018-05-26] MEDS: PANTOPRAZOLE 40 MG 10ML VIAL IV SCH (23:07)
[2018-05-27] VITALS (9 sets, daily range): BP systolic 119–154; BP diastolic 69–86
[2018-05-27 03:17] LABS: HEMATOCRIT 26.4 % (34.2-44.1); HEMOGLOBIN 8.7 g/dL (12.0-16.0)
[2018-05-27] MEDS: ONDANSETRON HCL INJ 2 MG/ML VIAL IV PRN ×3 (05:11→21:59)
[2018-05-27] MEDS: MORPHINE SULFATE 2 MG/ML SYR IV PRN ×3 (05:11→21:59)
[2018-05-27] MEDS: BALSAM PERU/CASTOR OIL 5 GM OINT...G. TP PRN (09:00)
[2018-05-27] MEDS: LIDOCAINE HCL 2% 30 ML TUBE TOP SCH ×2 (09:36→17:00)
[2018-05-27] MEDS: AMIODARONE HCL 200 MG TAB PO SCH ×2 (09:36→21:00)
[2018-05-27] MEDS: METOPROLOL TARTRATE 25 MG TAB PO SCH ×2 (09:50→21:00)
[2018-05-27 11:56] LABS: HEMATOCRIT 27.3 % (34.2-44.1); HEMOGLOBIN 8.9 g/dL (12.0-16.0)
[2018-05-27] MEDS ORDERED: SODIUM CHLORIDE 0.9% 250ML 250 ML IV ONE (12:45)
[2018-05-27] MEDS ORDERED: OXYMETAZOLINE HCL 0.05% NAS 1 SPRAY BTL ONE ×2 (13:09→14:33)
[2018-05-27] MEDS ORDERED: LIDOCAINE 1% W/EPINEPHRINE 20 ML VIAL ONE (13:09)
[2018-05-27] MEDS ORDERED: SODIUM CHLORIDE/ALOE VERA 14.1GM NASAL GEL ONE (14:28)
[2018-05-27] MEDS ORDERED: MUPIROCIN 2% OINT 22 GM TUBE ONE (14:38)
[2018-05-27] MEDS ORDERED: SEVOFLURANE INHAL SOLN 250 ML PEN BTL ONE (15:39)
[2018-05-27] MEDS ORDERED: SUCCINYLCHOLINE 200 MG/10 ML SYR ONE (15:39)
[2018-05-27] MEDS ORDERED: EPHEDRINE SULFATE INJ 50 MG/10 ML SYR ONE (15:39)
[2018-05-27] MEDS ORDERED: ROCURONIUM BROMIDE 10 MG/ML 5ML VIAL ONE (15:39)
[2018-05-27] MEDS ORDERED: KETAMINE HCL INJ 50 MG/ML 10 ML VIAL ONE (15:39)
[2018-05-27 16:01] LABS: HEMATOCRIT 31.8 % (34.2-44.1); HEMOGLOBIN 10.7 g/dL (12.0-16.0)
--- NOTE | 2018-05-27 17:41 | Operative Report ---
DATE OF PROCEDURE: May 27, 2018 PREOPERATIVE DIAGNOSIS: Epistaxis. POSTOPERATIVE DIAGNOSIS: Epistaxis. OPERATION PERFORMED: Endoscopic control of epistaxis. ANESTHESIA: General endotracheal. ESTIMATED BLOOD LOSS: 200 mL. COMPLICATIONS: None. OPERATIVE FINDINGS: Apparent erosion from the NG tube into the right sphenopalatine artery. OPERATIVE INDICATIONS: This 88-year-old woman presented with a history of small-bowel obstruction which necessitated prolonged nasogastric tube decompression. After removal of the nasogastric tube, she experienced brisk bleeding from her nose. It was initially controlled with Rhino Rocket. She had breakthrough bleeding which was temporarily controlled with additional pressure in the balloon of the Rhino Rocket. However, the following day she continued to have significant bleeding. The risks, benefits and alternatives to surgical intervention were discussed in detail with the patient and her family, and she gave her informed consent to have this procedure performed. NARRATIVE REPORT: After first obtaining adequate general endotracheal anesthesia, the patient was draped in the usual fashion. The nasal packing was removed. There was brisk bleeding from the right side and backup bleeding through the left side of the nose. There were bleeding points identified along the nasal septum. She had a marked nasal septal deviation toward the left anteriorly and toward the right posteriorly. The bleeding points on the nasal septum were cauterized, but she continued to have profuse bleeding arising from the nasopharyngeal region. The bleeding was then isolated to the right sphenopalatine artery region, and there was erosion of the posterior tip of the middle turbinate and into the nasopharynx, which was the apparent etiology for the epistaxis. The artery was cauterized with suction cautery and was packed with Afrin-soaked cottonoid pledgets. Additional mucosal bleeders were then cauterized using the suction cautery with the bleeding points primarily on the right side of the nose but there were also bleeding points on the left side of the nose. Care was taken to not cauterize the nose in direct opposition to the right-sided nasal cautery. The nasopharynx was unremarkable once the bleeding from the sphenopalatine artery was controlled. The patient was observed for approximately 10 to 15 minutes. No additional bleeding was seen. Some Merocel packing was then placed in both sides of the nose. There was no additional bleeding noted, and the patient was in satisfactory condition at the termination of the procedure. She was hemodynamically stable during the entire procedure. Job#: [id number] EV
--- NOTE | 2018-05-27 20:40 | Progress Note ---
DATE: May 27, 2018 CARDIOLOGY PROGRESS NOTE SUBJECTIVE: No major events overnight. OBJECTIVE VITAL SIGNS: As noted in the medical record. GENERAL: Thin, elderly white female, no acute distress. CARDIOVASCULAR: Regular rate and rhythm. A 2/6 systolic murmur in right upper sternal border radiating to the carotids. LUNGS: Clear to auscultation bilaterally. ABDOMEN: Soft, nontender, nondistended. Normal bowel sounds. NEURO AND PSYCH: Alert and oriented to person, place, and time. Normal affect. LABORATORY DATA: Reviewed. TELEMETRY DATA: Reviewed. Shows normal sinus rhythm with occasional sinus tachycardia. CARDIOVASCULAR MEDICATIONS: Reviewed. ASSESSMENT 1. Moderate aortic stenosis. 2. History of aortic valve endocarditis, status post intravenous antibiotics. 3. History of atrial fibrillation, currently in sinus rhythm. 4. History of deep vein thrombosis and pulmonary embolism, on chronic anticoagulation. 5. Recent small-bowel obstruction, status post laparoscopic surgery and lysis of adhesions. 6. Severe epistaxis. PLAN: Continue current cardiovascular medications including metoprolol and amiodarone to maintain sinus rhythm and control heart rate. Remains in normal sinus rhythm for now. Would like to resume her apixaban for reducing stroke risk from atrial fibrillation; however, given ongoing epistaxis, will hold off until cleared by ENT. Thank you for this consult. Will continue to follow. Job#: [id number] KARLI
[2018-05-27] MEDS: CENTRAL TPN FORMULA 1 BAG IV SCH (21:42)
[2018-05-27] MEDS: BALSAM PERU/CASTOR OIL 60 GM OINT...G. TP SCH (21:57)
[2018-05-27] MEDS: PANTOPRAZOLE 40 MG 10ML VIAL IV SCH (21:58)
[2018-05-28] VITALS (7 sets, daily range): BP systolic 99–119; BP diastolic 57–86
[2018-05-28] MEDS: AMIODARONE HCL 200 MG TAB PO SCH ×2 (07:53→21:00)
[2018-05-28] MEDS: METOPROLOL TARTRATE 25 MG TAB PO SCH ×2 (07:54→21:00)
[2018-05-28 08:29] LABS: BASOPHILS % 0.4 % (0.0-1.0); EOSINOPHILS # (AUTO) 0.3 (0.0-0.4); EOSINOPHILS % 2.9 % (0.0-6.0); HEMATOCRIT 26.7 % (34.2-44.1); HEMOGLOBIN 8.8 g/dL (12.0-16.0); LYMPHOCYTES % 9.6 % (18.0-39.1); MEAN CORPUSCULAR HEMOGLOBIN 31.5 pg (28-32); MEAN CORPUSCULAR VOLUME 95.7 fL (81-99); MONOCYTES % 9.1 % (4.4-11.3); NEUTROPHILS # (AUTO) 8.3 (2.1-6.9); NEUTROPHILS % 77.3 % (38.7-80.0); PLATELET COUNT 274 x10e3/uL (140-360); RED BLOOD COUNT 2.79 x10e6/uL (3.6-5.1); RED CELL DISTRIBUTION WIDTH 15.8 % (11.7-14.4)
[2018-05-28] MEDS: LIDOCAINE HCL 2% 30 ML TUBE TOP SCH ×2 (08:41→15:37)
[2018-05-28 08:49] LABS: ANION GAP 9.5 mmol/L (8-16); BLOOD UREA NITROGEN 33 mg/dL (7-26); BUN/CREATININE RATIO 43 (6-25); CALCIUM 9.3 mg/dL (8.4-10.2); CARBON DIOXIDE 23 mmol/L (22-29); CHLORIDE 106 mmol/L (98-107); CREATININE, SERUM 0.77 mg/dL (0.57-1.11); EST GLOMERULAR FILTRATION RATE > 60 ML/MIN (60-); GLUCOSE 140 mg/dL (74-118); POTASSIUM 5.5 mmol/L (3.5-5.1); SODIUM 133 mmol/L (136-145)
[2018-05-28] MEDS: ONDANSETRON HCL INJ 2 MG/ML VIAL IV PRN (09:28)
--- NOTE | 2018-05-28 13:15 | Progress Note ---
DATE: May 28, 2018 CARDIOLOGY PROGRESS NOTE SUBJECTIVE: No major events overnight. No further bleeding in the nose. She has packing in place. OBJECTIVE VITAL SIGNS: Temperature 98.4, pulse 85, respiratory rate 16, blood pressure 103/57, satting 96% on nasal cannula. GENERAL: Elderly white female in no acute distress. CARDIOVASCULAR: Regular rate and rhythm. A 2/6 systolic murmur right upper sternal border radiating to the carotid. LUNGS: Clear to auscultation bilaterally. ABDOMEN: Soft, nontender, nondistended. Normal bowel sounds. NEURO AND PSYCH: Alert and oriented to person, place, and time. Normal affect. CARDIOVASCULAR MEDICATIONS: Reviewed. TELEMETRY DATA: Reviewed. Shows normal sinus rhythm with occasional sinus tachycardia. LABORATORY DATA: Reviewed. ASSESSMENT AND PLAN 1. Moderate aortic stenosis. 2. History of aortic valve endocarditis, status post intravenous antibiotics. 3. History of atrial fibrillation, currently in sinus rhythm. 4. History of deep venous thrombosis and pulmonary embolus on chronic anticoagulation. 5. Recent small-bowel obstruction, status post laparoscopic surgery and lysis of adhesions. 6. Severe epistaxis requiring packing. PLAN: Continue current cardiovascular medications including metoprolol and amiodarone to maintain sinus rhythm. No anticoagulation given ongoing epistaxis. Will await clearance from ENT. Otherwise, she is stable from a cardiovascular standpoint. Thank you for this consult. Will continue to follow. Job#: [id number]
[2018-05-28] MEDS ORDERED: DEXTROSE 10% 1,000 ML IV ONE (18:15)
[2018-05-28] MEDS ORDERED: CENTRAL TPN FORMULA 1 BAG IV SCH (20:00)
[2018-05-28] MEDS: PANTOPRAZOLE 40 MG 10ML VIAL IV SCH (21:20)
[2018-05-28] MEDS: MORPHINE SULFATE 2 MG/ML SYR IV PRN (21:20)
[2018-05-28] MEDS: BALSAM PERU/CASTOR OIL 60 GM OINT...G. TP SCH (21:22)
[2018-05-28 22:01] LABS: HEMATOCRIT 26.3 % (34.2-44.1); HEMOGLOBIN 8.8 g/dL (12.0-16.0)
[2018-05-29] VITALS (16 sets, daily range): BP systolic 84–122; BP diastolic 42–88
[2018-05-29 04:41] LABS: HEMATOCRIT 27.9 % (34.2-44.1); HEMOGLOBIN 9.1 g/dL (12.0-16.0)
[2018-05-29 07:16] LABS: BASOPHILS # (AUTO) 0.1 (0.0-0.1); BASOPHILS % 0.6 % (0.0-1.0); EOSINOPHILS # (AUTO) 0.5 (0.0-0.4); EOSINOPHILS % 5.5 % (0.0-6.0); HEMATOCRIT 28.3 % (34.2-44.1); HEMOGLOBIN 9.2 g/dL (12.0-16.0); LYMPHOCYTES # (AUTO) 1.2 (1.0-3.2); LYMPHOCYTES % 12.9 % (18.0-39.1); MEAN CORPUSCULAR HEMOGLOBIN 32.1 pg (28-32); MEAN CORPUSCULAR HGB CONC 32.5 g/dL (31-35); MEAN CORPUSCULAR VOLUME 98.6 fL (81-99); MONOCYTES % 10.7 % (4.4-11.3); NEUTROPHILS # (AUTO) 6.3 (2.1-6.9); NEUTROPHILS % 69.7 % (38.7-80.0); PLATELET COUNT 313 x10e3/uL (140-360); RED BLOOD COUNT 2.87 x10e6/uL (3.6-5.1); RED CELL DISTRIBUTION WIDTH 15.6 % (11.7-14.4)
[2018-05-29 07:26] LABS: ANION GAP 11.1 mmol/L (8-16); BLOOD UREA NITROGEN 27 mg/dL (7-26); BUN/CREATININE RATIO 33 (6-25); CALCIUM 9.8 mg/dL (8.4-10.2); CARBON DIOXIDE 23 mmol/L (22-29); CHLORIDE 107 mmol/L (98-107); CREATININE, SERUM 0.83 mg/dL (0.57-1.11); EST GLOMERULAR FILTRATION RATE > 60 ML/MIN (60-); GLUCOSE 127 mg/dL (74-118); POTASSIUM 5.1 mmol/L (3.5-5.1); SODIUM 136 mmol/L (136-145)
[2018-05-29] MEDS: AMIODARONE HCL 200 MG TAB PO SCH ×2 (08:09→20:48)
[2018-05-29] MEDS: LIDOCAINE HCL 2% 30 ML TUBE TOP SCH ×2 (08:10→15:44)
[2018-05-29] MEDS: METOPROLOL TARTRATE 25 MG TAB PO SCH ×2 (08:10→20:48)
--- NOTE | 2018-05-29 11:01 | Progress Note ---
DATE: May 29, 2018 CARDIOLOGY PROGRESS NOTE SUBJECTIVE: Patient is without any complaints this morning. She does endorse some occasional abdominal pain, but otherwise no any other complaints. Denies any chest pain, palpitations, or shortness of breath. OBJECTIVE VITAL SIGNS: Temperature 98.2, pulse 84, respiratory rate 18, blood pressure 107/63, oxygen saturation 98% on room air. GENERAL: Alert and oriented x3, resting comfortably in bed, niece at the bedside. NECK: Supple. No JVD noted. CARDIOVASCULAR: Regular rate and rhythm. A 4/6 systolic murmur present. LUNGS: Clear to auscultation throughout. No wheezing. No rhonchi. ABDOMEN: Soft, nontender. Midline abdominal suture noted. EXTREMITIES: Lower extremities, normal pulses. No edema. CARDIOVASCULAR MEDICATIONS 1. Metoprolol 12.5 mg p.o. q.12 hours. 2. Amiodarone 200 mg p.o. q.12 hours. LABS: WBC 8.96, hemoglobin 9.2, hematocrit 28.3, platelets 313. Sodium 136, potassium 5.1, BUN 27, creatinine 0.83, glucose 127, calcium 9.8. TELEMETRY: Sinus rhythm. ASSESSMENT 1. Moderate aortic stenosis. 2. History of aortic valve endocarditis, status post intravenous antibiotics. 3. History of atrial fibrillation, currently remain in sinus rhythm. 4. History of deep vein thrombosis and pulmonary emboli, on chronic anticoagulation for this reason. 5. Recent small bowel obstruction, status post surgery. 6. Severe epistaxis requiring packing, packing remains in place. PLAN: Continue the above-listed cardiac medications. Patient not a candidate for anticoagulation given epistaxis. We will await clearance from ENT. She remains stable from a cardiovascular standpoint. We will continue to monitor this patient very closely. Dictated by: Lisa Pitt NP Job#: [id number]
[2018-05-29] MEDS ORDERED: CENTRAL TPN FORMULA 1 BAG IV SCH (20:00)
[2018-05-29] MEDS: BALSAM PERU/CASTOR OIL 60 GM OINT...G. TP SCH (21:00)
[2018-05-29] MEDS: MORPHINE SULFATE 2 MG/ML SYR IV PRN (21:11)
[2018-05-29] MEDS: PANTOPRAZOLE 40 MG 10ML VIAL IV SCH (22:15)
[2018-05-30] VITALS (11 sets, daily range): BP systolic 98–137; BP diastolic 52–87
[2018-05-30 04:34] LABS: BASOPHILS % 0.4 % (0.0-1.0); EOSINOPHILS # (AUTO) 0.5 (0.0-0.4); EOSINOPHILS % 5.6 % (0.0-6.0); HEMATOCRIT 28.7 % (34.2-44.1); HEMOGLOBIN 9.4 g/dL (12.0-16.0); LYMPHOCYTES % 10.8 % (18.0-39.1); MEAN CORPUSCULAR HEMOGLOBIN 31.6 pg (28-32); MEAN CORPUSCULAR HGB CONC 32.8 g/dL (31-35); MEAN CORPUSCULAR VOLUME 96.6 fL (81-99); MONOCYTES % 10.9 % (4.4-11.3); NEUTROPHILS # (AUTO) 6.6 (2.1-6.9); NEUTROPHILS % 71.8 % (38.7-80.0); PLATELET COUNT 356 x10e3/uL (140-360); RED BLOOD COUNT 2.97 x10e6/uL (3.6-5.1); RED CELL DISTRIBUTION WIDTH 15.1 % (11.7-14.4)
[2018-05-30 04:51] LABS: ANION GAP 11.8 mmol/L (8-16); BLOOD UREA NITROGEN 26 mg/dL (7-26); BUN/CREATININE RATIO 34 (6-25); CALCIUM 9.9 mg/dL (8.4-10.2); CARBON DIOXIDE 22 mmol/L (22-29); CHLORIDE 106 mmol/L (98-107); CREATININE, SERUM 0.77 mg/dL (0.57-1.11); EST GLOMERULAR FILTRATION RATE > 60 ML/MIN (60-); GLUCOSE 119 mg/dL (74-118); POTASSIUM 4.8 mmol/L (3.5-5.1); SODIUM 135 mmol/L (136-145)
[2018-05-30] MEDS: METOPROLOL TARTRATE 25 MG TAB PO SCH ×2 (08:06→21:00)
[2018-05-30] MEDS: AMIODARONE HCL 200 MG TAB PO SCH ×2 (08:06→21:00)
[2018-05-30] MEDS: LIDOCAINE HCL 2% 30 ML TUBE TOP SCH ×2 (08:06→16:21)
--- NOTE | 2018-05-30 11:30 | Progress Note ---
DATE: May 30, 2018 CARDIOLOGY PROGRESS NOTE SUBJECTIVE: Patient is without any new complaints. She does report that she was not able to rest most of the night; however, denies any chest pain, shortness of breath, or palpitations. CARDIOVASCULAR MEDICATIONS 1. Metoprolol 2.5 mg q.6 h p.r.n. IV. 2. Metoprolol 12.5 mg q.12 hours p.o. 3. Amiodarone 200 mg q.12 hours p.o. LABS: WBC 9.17, hemoglobin 9.4, hematocrit 28.7, and platelets 356. Sodium 135, potassium 4.8, BUN 26, creatinine 0.77, glucose 119, calcium 9.9. TELEMETRY: Sinus rhythm. OBJECTIVE VITAL SIGNS: Temperature 98.2, pulse 85, respiratory rate 23, blood pressure 98/81, and oxygen saturation 98% on room air. GENERAL: Alert and oriented x3, resting comfortably in bed. Friend at the bedside. LUNGS: Clear to auscultation throughout. No wheezing. No rhonchi or crackles. NECK: Supple. No JVD noted. CARDIOVASCULAR: Regular rate and rhythm. A 4/6 systolic murmur present. ABDOMEN: Soft, nontender. Midline abdominal sutures present. EXTREMITIES: Lower extremities; no edema, 2+ pedal pulse. ASSESSMENT 1. Moderate aortic stenosis. 2. History of aortic valve endocarditis, status post intravenous antibiotic. 3. History of atrial fibrillation, currently remains to be in sinus rhythm with amiodarone. 4. History of deep vein thrombosis with pulmonary emboli, on chronic anticoagulation for this reason. 5. Recent small bowel obstruction, status post surgery. 6. Severe epistaxis requiring packing, packing still remains in place. PLAN: Packing is to be removed by ENT tomorrow. Continue the above cardiac medications. Patient convinced that the plan is to be discharged to a rehab possibly tomorrow. From a cardiovascular standpoint, this patient remains to be stable. We will continue to follow very closely. Dictated by: Lisa Pitt NP Job#: [id number] ANNY
[2018-05-30] MEDS: BALSAM PERU/CASTOR OIL 5 GM OINT...G. TP PRN (11:49)
[2018-05-30] MEDS ORDERED: CENTRAL TPN FORMULA 1 BAG IV SCH (20:00)
[2018-05-30] MEDS: PANTOPRAZOLE 40 MG 10ML VIAL IV SCH (21:24)
[2018-05-30] MEDS: BALSAM PERU/CASTOR OIL 60 GM OINT...G. TP SCH (21:24)
[2018-05-30] MEDS: MORPHINE SULFATE 2 MG/ML SYR IV PRN (22:30)
[2018-05-31] VITALS (8 sets, daily range): BP systolic 102–125; BP diastolic 65–88
[2018-05-31] MEDS: METOPROLOL TARTRATE 25 MG TAB PO SCH (08:43)
[2018-05-31] MEDS: SALINE 0.65% NAS SOLN 1 SPRAY BTL SCH ×2 (08:43→15:13)
[2018-05-31] MEDS: AMIODARONE HCL 200 MG TAB PO SCH (08:43)
[2018-05-31] MEDS: LIDOCAINE HCL 2% 30 ML TUBE TOP SCH ×2 (08:44→16:08)
[2018-05-31] MEDS: NEOMYCIN/POLYMYXIN/BACITRACIN 15 GM TUBE TOP SCH ×2 (08:44→15:13)
[2018-05-31] MEDS ORDERED: CENTRAL TPN FORMULA 1 BAG IV SCH (10:28)
[2018-05-31 11:28] LABS: ALANINE AMINOTRANSFERASE 20 IU/L (0-55); ALBUMIN 2.6 g/dL (3.5-5.0); ALBUMIN/GLOBULIN RATIO 0.8 (0.8-2.0); ALKALINE PHOSPHATASE 94 IU/L (40-150); ANION GAP 11.1 mmol/L (8-16); BLOOD UREA NITROGEN 30 mg/dL (7-26); BUN/CREATININE RATIO 38 (6-25); CALCIUM 10.2 mg/dL (8.4-10.2); CARBON DIOXIDE 23 mmol/L (22-29); CHLORIDE 105 mmol/L (98-107); EST GLOMERULAR FILTRATION RATE > 60 ML/MIN (60-); GLUCOSE 131 mg/dL (74-118); POTASSIUM 5.1 mmol/L (3.5-5.1); SODIUM 134 mmol/L (136-145)
[2018-05-31 11:34] LABS: BASOPHILS % 0.4 % (0.0-1.0); EOSINOPHILS # (AUTO) 0.3 (0.0-0.4); EOSINOPHILS % 2.9 % (0.0-6.0); HEMATOCRIT 31.4 % (34.2-44.1); HEMOGLOBIN 10.3 g/dL (12.0-16.0); LYMPHOCYTES % 9.2 % (18.0-39.1); MEAN CORPUSCULAR HGB CONC 32.8 g/dL (31-35); MEAN CORPUSCULAR VOLUME 97.5 fL (81-99); MONOCYTES # (AUTO) 1.1 (0.2-0.8); MONOCYTES % 10.6 % (4.4-11.3); NEUTROPHILS % 76.2 % (38.7-80.0); PLATELET COUNT 439 x10e3/uL (140-360); RED BLOOD COUNT 3.22 x10e6/uL (3.6-5.1); RED CELL DISTRIBUTION WIDTH 14.7 % (11.7-14.4)
--- NOTE | 2018-05-31 11:37 | Diagnostic Imaging Report ---
Examination: Single AP view of the chest. COMPARISON: None. INDICATION: Evaluate for pneumonia DISCUSSION: Lines/tubes: Right PICC line with tip overlying the superior vena cava. Lungs: Lungs are hyperinflated. No consolidative pneumonia. Pleura: There is no pleural effusion or pneumothorax. Heart and mediastinum: The heart and the mediastinum are unremarkable. Bones and soft tissues: No acute bony abnormalities. IMPRESSION: 1. No acute cardiopulmonary abnormalities. Signed by: Dr. Hitesh Park M.D. on 05/31/2018 11:34 AM
--- NOTE | 2018-05-31 14:20 | Progress Note ---
DATE: May 31, 2018 CARDIOLOGY PROGRESS NOTE SUBJECTIVE: Patient was seen and examined sitting in bed. She reports no events overnight. She denies any chest pain, shortness of breath, or palpitations. There is no abdominal discomfort. She states she is undergoing a swallow evaluation. OBJECTIVE VITAL SIGNS: Temperature is 98.7, heart rate is 82, respirations are 17, oxygen saturation 97% on room air, blood pressure is 122/88. GENERAL: She is a thin elderly woman lying comfortably in bed alert and oriented times 3. No apparent distress. HEENT: Head is normocephalic and atraumatic. Eyes: Extraocular movements are intact. Conjunctivae are clear. NECK: No jugular venous distention. CARDIOVASCULAR: Regular rate and rhythm. There is a 3/6 systolic murmur heard best at the right upper sternal border. LUNGS: Mildly decreased breath sounds at bilateral bases. No wheezing. No rales. ABDOMEN: Soft, nontender and nondistended. EXTREMITIES: No edema. VASCULAR: Two plus pulses. NEUROLOGICAL: No focal deficits noted. CARDIOVASCULAR MEDICATIONS 1. Metoprolol tartrate p.r.n. 2. Amiodarone 200 mg p.o. b.i.d. LABORATORY DATA: Reviewed. IMAGING DATA: Reviewed. IMPRESSION 1. Moderate aortic stenosis. 2. History of aortic valve endocarditis: Status post antibiotics. 3. History of paroxysmal atrial fibrillation. 4. History of deep venous thrombosis and pulmonary embolism. 5. Small-bowel obstruction: Status post surgery. 6. History of epistaxis. RECOMMENDATIONS: The patient is stable from a cardiovascular standpoint. She remains in normal sinus rhythm on telemetry. Her anticoagulation is being held due to epistaxis. She is progressing well from her small-bowel obstruction and undergoing swallow evaluation soon. Will continue to monitor aortic stenosis as an outpatient. She is otherwise stable from a cardiovascular standpoint. Job#: [id number] NE
[2018-06-03] MEDS ORDERED: NEOMYCIN/POLYMYXIN/BACITRACIN 15 GM TUBE TOP PRN (01:00)
== END 2018-05-31 21:08 | DRG 335 ==
LOC: ER 19:08 → ERHOLD 05-09 00:25 → MED/SURG 05-09 02:24 → MED/SURG3 05-13 21:00 → ICU 05-13 21:20 → IMCU 05-20
PROC: 0D9670Z Drainage of Stomach with Drainage Device, Via Natural or Artificial Opening (ICD-10-PCS; 2018-05-09)
PROC: 02HV33Z Insertion of Infusion Device into Superior Vena Cava, Percutaneous Approach (ICD-10-PCS; 2018-05-15)
PROC: 0DN80ZZ Release Small Intestine, Open Approach (ICD-10-PCS; 2018-05-18)
PROC: 0DNE0ZZ Release Large Intestine, Open Approach (ICD-10-PCS; principal; 2018-05-18 12:00)
PROC: 3E0436Z Introduction of Nutritional Substance into Central Vein, Percutaneous Approach (ICD-10-PCS; 2018-05-20)
PROC: 093K8ZZ Control Bleeding in Nasal Mucosa and Soft Tissue, Via Natural or Artificial Opening Endoscopic (ICD-10-PCS; 2018-05-25)
PROC: 30233N1 Transfusion of Nonautologous Red Blood Cells into Peripheral Vein, Percutaneous Approach (ICD-10-PCS; 2018-05-27)
PROC: 093K8ZZ Control Bleeding in Nasal Mucosa and Soft Tissue, Via Natural or Artificial Opening Endoscopic (ICD-10-PCS; 2018-05-27)
DX: K56.51 Intestinal adhesions [bands], with partial obstruction (principal); J15.6 Pneumonia due to other Gram-negative bacteria; A41.9 Sepsis, unspecified organism; N30.00 Acute cystitis without hematuria; E44.0 Moderate protein-calorie malnutrition; D62 Acute posthemorrhagic anemia; K56.41 Fecal impaction; K21.9 Gastro-esophageal reflux disease without esophagitis; J44.9 Chronic obstructive pulmonary disease, unspecified; E03.9 Hypothyroidism, unspecified; I11.0 Hypertensive heart disease with heart failure; I50.9 Heart failure, unspecified; Z86.711 Personal history of pulmonary embolism; Z86.718 Personal history of other venous thrombosis and embolism; Z79.01 Long term (current) use of anticoagulants; R04.0 Epistaxis; E87.6 Hypokalemia; E86.0 Dehydration; I25.10 Atherosclerotic heart disease of native coronary artery without angina pectoris; I48.0 Paroxysmal atrial fibrillation; I87.2 Venous insufficiency (chronic) (peripheral); I35.0 Nonrheumatic aortic (valve) stenosis; E16.2 Hypoglycemia, unspecified; R53.81 Other malaise; Y73.1 Therapeutic (nonsurgical) and rehabilitative gastroenterology and urology devices associated with adverse incidents; Y92.239 Unspecified place in hospital as the place of occurrence of the external cause
CPT/HCPCS: 36415; 36569; 36600; 71045; 71046; 74022; 74176; 80048; 80053; 80202; 81001; 82150; 82550; 82553; 82805; 82948; 83605; 83690; 83735; 84134; 84478; 84484; 84630; 85014; 85018; 85025; 85610; 85730; 86850; 86900; 86920; 87040; 87086; 87186; 93005; 93306; 96361; 96365; 96366; 96374; 96376; 97139; 99284; J0692; J1100; J1160; J1940; J2001; J2250; J2270; J2370; J2405; J2543; J3370; J3480; J7030; J7050; J7060; J7799; P9016

== ENCOUNTER → 2019-02-28 | Outpatient (CLI) | payer MEDICARE, BC ==
[~2019-02-28] MED LIST changes: +AMIODARONE HCL200 MG PO; +EVOXAC30 MG PO; +Eliquis PO; +LOSARTAN POTASS25 MG PO; +METOPROLOL SUCC25 MG PO
--- NOTE | 2019-02-28 13:31 | Diagnostic Imaging Report ---
EXAMINATION: SHOULDER LEFT COMPLETE INDICATION: Left shoulder pain COMPARISON: None FINDINGS: 2 views of the left shoulder and internal and external rotation demonstrate no acute fracture or dislocation. Severe degenerative changes of the glenohumeral joint with [id number] contact, bulky osteophyte formation, subchondral sclerosis and subchondral cystic change. The visualized portions of the left lung are clear. No displaced rib fracture. IMPRESSION: No acute osseous injury. Severe left glenohumeral joint degenerative changes. Signed by: Yasmin Morfin MD on 02/28/2019 1:27 PM
== END ==
LOC: RAD 12:45
DX: M25.512 Pain in left shoulder (principal)

== ENCOUNTER 2019-04-02 13:00 | Inpatient (IN) | payer MEDICARE, BC ==
[2019-04-02] VITALS (7 sets, daily range): BP systolic 115–181; BP diastolic 67–89
[~2019-04-02] VITALS: Ht 170.2 cm; Wt 58.1 kg
[~2019-04-02 13:00] MED LIST changes: -AMIODARONE HCL200 MG PO; -EVOXAC30 MG PO; -Eliquis PO; -LOSARTAN POTASS25 MG PO; -METOPROLOL SUCC25 MG PO
--- OUTSIDE RECORDS SUMMARY | 2019-04-02 13:07 | XMS REPORT | Summary of Care ---
Author Author [facility] - Health Organization [facility] - Health Address Unknown Phone Unavailable Care Team Providers Care Tanning Solution Maker Name Role Phone Guille Mills PCP Encounter Details Care Team Description Date Type Department Doctor Unassigned, [place] [address] [place] [address] 02/25/2019 Orders Only [facility] [address] [place] [address] Allergies Comments Active Allergy Reactions Severity Noted Date Very sleepy Codeine Other - See 02/23/2019 comments documented as of this encounter (statuses as of 02/25/2019) Medications End Date Status Medication Sig Dispensed Refills Start Date Active apixaban 2.5 mg tablet Take 2.5 mg 0 by mouth 2 (two) times daily. Active OMEPRAZOLE ORAL Take 40 mg by 0 mouth daily. Active losartan 25 mg tablet Take 25 mg by 0 mouth daily. Active metoprolol succinate XL Take 25 mg by 0 25 mg 24 hr tablet mouth daily. documented as of this encounter (statuses as of 02/25/2019) Active Problems Not on filedocumented as of this encounter (statuses as of 02/25/2019) Social History Date Tobacco Use Types Packs/Day Years Used Never Assessed Sex Assigned at Date Recorded Not on file Industry Job Start Date Occupation Not on file Not on file Not on file Travel End Travel History Travel Start No recent travel history available. documented as of this encounter Last Filed Vital Signs Not on filedocumented in this encounter Plan of Treatment Health Maintenance Due Date Last Done Comments DTaP,Tdap,and Td Vaccines 1949 (1 - Tdap) Zoster Recombinant 1982 Vaccine (SHINGRIX) (1 of 2) Medicare Wellness Visit 1997 Osteoporosis Screening 1997 PNEUMOCOCCAL VACCINES 65+ 1997 (1 of 2 - PCV13) INFLUENZA VACCINE 03/27/2019 documented as of this encounter Procedures Comments Procedure Name Priority Date/Time Associated Diagnosis EXTERNAL PROVIDER RECORDS Routine 02/25/2019 12:01 AM CDT documented in this encounter Results Not on filedocumented in this encounter Insurance Type Payer Benefit Subscriber ID Effective Phone Address Plan / Dates Group Medicare MEDICARE MEDICARE xxxxxxxxxx 1997- [phone] [address] Present [id number] EMILY JOHNSON [id number] PPO/POS BCBS [facility] BCBS FED [id number] 2001-P [phone] [id number] [place] [address] documented as of this encounter
--- OUTSIDE RECORDS SUMMARY | 2019-04-02 13:07 | XMS REPORT | Summary of Care ---
Author Author [facility] - Health Organization [facility] - Health Address Unknown Phone Unavailable Care Team Providers Care Energy Advisor Name Role Phone Guille Mills Meena PCP Reason for Visit * Auth/Cert Referred By Contact Referred To Contact Status Reason Specialty Diagnoses / Procedures [facility] [address] [place] [id number] Cardiac Diagnoses Electrophysiolog i48.0 y P rocedures HI PERQ CLSR TCAT L ATR APNDGE W/ENDOCARDIAL IMPLNT Encounter Details Care Team Description Date [place] [address] [place] [address] [phone] 1, Clc Cardiac Proc Room Anesthesia, [facility] Ep Lab Persistent atrial fibrillation (Primary Dx) 02/24/2019 [facility] [place] Encounter - Heart Station, [address] [phone] Allergies Comments Active Allergy Reactions Severity Noted Date Very sleepy Codeine Other - See 02/23/2019 comments documented as of this encounter (statuses as of 02/25/2019) Medications No known medicationsdocumented as of this encounter (statuses as of [...] of this encounter Last Filed Vital Signs Reading Time Taken Comments Vital Sign 162/84 02/24/2019 2:15 PM CDT Blood Pressure 72 02/24/2019 2:15 PM CDT Pulse 36.9 C (98.5 F) 02/24/2019 6:18 AM CDT Temperature 18 02/24/2019 2:15 PM CDT Respiratory Rate 95% 02/24/2019 2:15 PM CDT Oxygen Saturation - - Inhaled Oxygen Concentration 61.2 kg (135 lb) 02/24/2019 6:18 AM CDT Weight 170.2 cm (5' 7") 02/24/2019 6:18 AM CDT Height 21.14 02/24/2019 6:18 AM CDT Body Mass Index documented in this encounter Discharge Instructions * Instructions* Aylin Morales RN - 02/24/2019 Patient Discharge Instructions Follow instructions as indicated below: Discharge Orders Activity As Tolerated Lift nothing heavier than 5 pounds for 2 weeks Do not operate a motorized vehicle for 2 days Keep area dry and clean Do not remove band-aid for the first 24 hours after procedure Do not soak in bathtub or hot tub for the first 24 hours after procedure Watch for bleeding, swelling, pain, fever, and any discharge call the Telecommunications Professional ( during hours) Order Comments: At nights, weekends or holidays, call the [facility] hospital electric crane operator at . Ask the electric crane operator to page the Cardiac Cath Fellow who is on-pr ll. Avoid making important life decisions for the first 48 hours No strenuous activity for 72 hours Drink plenty of water Continue previous outpatient medications Hold Metformin for 48 hours Cardiac (2 gm Sodium, Low Fat, Low Cholesterol) Diet; Texture: Regular. Texture Regular. Diabetic: No Discharge Condition - Discharge Condition: GOOD Discharge Activity Discharge Activity: As Tolerated Discharge Activity: No Heavy Lifting or Strenuous Activity Resume pre procedure diet Order Comments: Resume pre procedure diet No VTE Prophylaxis given- Patient low risk for VTE; Not ordered during hospitali zation Weight: In general, sudden weight gains or losses should be reported to your pro vider. Cardiac patients should weigh daily and notify their provider for a weig ht gain of 3 pounds per day or 5 pounds per week. Follow-up appointments: To schedule other appointments, call the [facility] at or . You may also make appointments online by going to [email or web address] and follow the Request Appointment quicklink. Take Home Medications These are medications ordered for you by your healthcare provider. Do not take a ny other medications or supplements unless advised by your healthcare provider. Patient's Medications START taking these medications No medications on file CONTINUE taking these medications which have NOT CHANGED APIXABAN 2.5 MG TABLET Take 2.5 mg by mouth 2 (two) times daily. LOSARTAN 25 MG TABLET Take 25 mg by mouth daily. METOPROLOL SUCCINATE XL 25 MG 24 HR TABLET Take 25 mg by mouth daily. OMEPRAZOLE ORAL Take 40 mg by mouth daily. START taking Modified Medications as Prescribed No medications on file STOP taking these medications No medications on file Medications: Your doctor may prescribe medicine to prevent blood clots. You ma y also have to take medicine to prevent chest pain. Take your medicine as usual after the procedure unless your doctor has told you to stop. Any changes in your medicine's schedule will be explained to you. For questions regarding follow-up [facility] at or For worsening symptoms/changing condition/problems or questions: During normal business hours call the [facility] Cardiac Telecommunications Professional at . At nights, weekends or holidays, call the [facility] hospital electric crane operator at . Ask the electric crane operator to page the Cardiac Cath Fellow who is on-call. Emergency: Go to the closest emergency room or call [phone] Signs and Symptoms of a Problem: Call your doctor if you have any of the follow ing problems: Fever Swelling, pain, redness around the puncture site Foul smell or drainage from the site Odd changes in sensations, like numbness, tingling, coldness or pain in the a rm or leg where the catheter was inserted. If you start Bleeding: Apply pressure to the site. If the bleeding continues, h ave someone call your doctor and make arrangements to see him/her. Please follo w the doctor's directions. Our Goal is to Always Provide You with Very Good Care! We will be mailing you a survey, Please complete and return at your convenience. Thank You TOBACCO AVOIDANCE Exposure to tobacco either from smoking or from second hand (environmental) smok e or smokeless tobacco (snuff) is damaging to your health. This information is to encourage everyone to avoid tobacco exposure. It is recommended that you: ? If you smoke or use smokeless tobacco, we encourage you to quit. ? If you have already quit smoking, continue your good work! ? If you do not smoke or use smokeless tobacco, do not start. ? Avoid secondhand smoke. Additional Resources You may want to contact these organizations for further information on smoking a nd how to quit. [employer], http://www.lungusa.org/stop-smoking/ [employer], http://www.cancer.org/Healthy/StayAwayfromTobacco/index [place] [employer], http://www.heart.org/HEARTORG/GettingHealthy/QuitSmo adri/Quit-Smoking_[facility]_001085_SubHomePage.jsp documented in this encounter Plan of Treatment Health Maintenance Due Date Last Done Comments DTaP,Tdap,and Td Vaccines 1949 (1 - Tdap) Zoster Recombinant 1982 Vaccine (SHINGRIX) (1 of 2) Medicare Wellness Visit 1997 Osteoporosis Screening 1997 PNEUMOCOCCAL VACCINES 65+ 1997 (1 of 2 - PCV13) INFLUENZA VACCINE 03/27/2019 documented as of this encounter Procedures Comments Procedure Name Priority Date/Time Associated Diagnosis ABORH CONFIRMATION Routine 02/24/2019 6:45 AM CDT CBC WITH DIFFERENTIAL Routine 02/24/2019 Persistent atrial 6:16 AM CDT fibrillation PROTHROMBIN TIME / INR Routine 02/24/2019 Persistent atrial 6:16 AM CDT fibrillation CBC WITH DIFF Routine 02/24/2019 Persistent atrial 6:16 AM CDT fibrillation BASIC METABOLIC PANEL Routine 02/24/2019 Persistent atrial (NA, K, CL, CO2, GLUCOSE, 6:16 AM CDT fibrillation BUN, CREATININE, CA) TYPE AND SCREEN MEET 02/24/2019 Persistent atrial 6:00 AM CDT fibrillation NOTICE OF PRIVACY Routine 02/24/2019 PRACTICES 5:41 AM CDT CONSENT/REFUSAL FOR Routine 02/24/2019 DIAGNOSIS AND TREATMENT 5:41 AM CDT ASSIGNMENT OF BENEFITS Routine 02/24/2019 5:40 AM CDT PHYSICIAN CERTIFICATION Routine 02/24/2019 STATEMENT 12:01 AM CDT documented in this encounter Results * ABORH CONFIRMATION (02/24/2019 6:45 AM CDT) ABO & RH AB Positive LAB Comment: Performed at [facility] Laboratory [facility] Blood Bank [address] [place] [phone] Toll Free: [phone] CLIA No. [id number] Specimen Performing Organization Address City/State/Zipcode Phone Number BLD LAB * CBC WITH DIFFERENTIAL (02/24/2019 6:16 AM CDT) WBC 5.94 4.30 - 11.10 [facility] 10*3/L [facility] RBC 3.67 (L) 3.93 - 5.25 10*6/L [facility] HGB 12.0 11.6 - 15.0 g/dL [facility] HCT 38.5 35.7 - 45.2 % [facility] MCV 104.9 (H) 80.6 - 95.5 fL [facility] MCH 32.7 25.9 - 32.8 pg [facility] MCHC 31.2 (L) 31.6 - 35.1 g/dL [facility] RDW-SD 53.6 (H) 39.0 - 49.9 fL [facility] RDW-CV 13.8 12.0 - 15.5 % [facility] PLT 237 166 - 358 10*3/L [facility] MPV 10.5 9.5 - 12.9 fL [facility] NRBC/100 WBC 0.0 0.0 - 10.0 /100 WBCs [facility] NRBC x10^3 <0.01 10*3/L [facility] GRAN MAT (NEUT) 58.4 % [facility] % [facility] IMM GRAN % 0.30 % [facility] LYMPH % 25.4 % [facility] MONO % 12.0 % [facility] EOS % 3.2 % [facility] BASO % 0.7 % [facility] GRAN MAT 3.47 1.88 - 7.09 10*3/uL [facility] x10^3(ANC) [facility] IMM GRAN x10^3 <0.03 0.00 - 0.06 10*3/uL [facility] LYMPH x10^3 1.51 1.32 - 3.29 10*3/uL [facility] x10^3 0.71 0.33 - 0.92 10*3/uL [facility] EOS x10^3 0.19 0.03 - 0.39 10*3/uL [facility] BASO x10^3 0.04 0.01 - 0.07 10*3/uL [facility] Specimen Blood Performing Organization Address City/State/Zipcode Phone Number [facility] CLIA: [id number], [address] [place], [place] [address] [facility] * BASIC METABOLIC PANEL (NA, K, CL, CO2, GLUCOSE, BUN, CREATININE, CA) (02/24/2019 6:16 AM CDT) NA 141 135 - 145 mmol/L [facility] K 4.2 3.5 - 5.0 mmol/L [facility] CL 105 98 - 108 mmol/L [facility] CO2 TOTAL 29 23 - 31 mmol/L [facility] AGAP 7 2 - 16 [facility] BUN 20 7 - 23 mg/dL [facility] GLUCOSE 82 70 - 110 mg/dL [facility] CREATININE 1.05 (H) 0.50 - 1.04 mg/dL [facility] CALCIUM 11.0 (H) 8.6 - 10.6 mg/dL [facility] LABORATORY SERVICES-[facility] eGFR 49.7 mL/min/1.73m2 [facility] Calculation SERVICES-CLEAR (Non-[facility]) eGFR 60.2 mL/min/1.73m2 [facility] Calculation SERVICES-CLEAR ([facility]) Specimen Blood Narrative Performed At Association of Glomerular Filtration Rate (GFR) and Staging of Kidney Disease* [facility] + + + + SERVICES- ENSIGN | GFR (mL/min/1.73 m2)| With Kidney Damage|Without Kidney Damage CAMPUS + + + + |>90|Stage one| Normal + + + + |60-89|Stage two| Decreased GFR + + + + |30-59|Stage three| Stage three + + + + |15-29|Stage four | Stage four + + + + |<15 (or dialysis)|Stage five | Stage five + + + + *Each stage assumes the associated GFR level has been in effect for at least three months.Stages 1 to 5, with or without kidney disease, indicate chronic kidney disease. Notes: Determination of stages one and two (with eGFR >59mL/min/1.73 m2) requires estimation of kidney damage for at least three months as defined by structural or functional abnormalities of the kidney, manifested by either: Pathological abnormalities or Markers of kidney damage (including abnormalities in the composition of the blood or urine or abnormalities in imaging tests). Performing Organization Address City/State/Zipcode Phone Number [facility] CLIA: [id number], [address] [place] [address] [facility] * PROTHROMBIN TIME / INR (02/24/2019 6:16 AM CDT) Pathologist [facility] PROTIME PATIENT 11.1 10.1 - 12.6 Seconds [facility] INR 1.0Comment: Normal INR <1.1; [facility] Warfarin Therapeutic range 2.0 [facility] to 3.0 or 2.5 to 3.5, [facility] depending upon the indications. Specimen Blood Performing Organization Address City/State/Zipcode Phone Number [facility] CLIA: [id number], [address] [place] [address] [facility] * Type and Screen - ONCE MEET (02/24/2019 6:00 AM CDT) ABO & RH AB Positive LAB Comment: Performed at [facility] Laboratory Services - [facility] Blood Bank [address] [place], [place] [address] Toll Free: [phone] CLIA No. [id number] IAT Negative LAB Comment: Performed at [facility] Laboratory Services - [facility] Blood [facility] [address] [place], [place] [address] Toll Free: [phone] CLIA No. [id number] Specimen VENOUS Performing Organization Address City/State/Zipcode Phone Number [facility]LD LAB documented in this encounter Visit Diagnoses Diagnosis Persistent atrial fibrillation - Primary Atrial fibrillation documented in this encounter Administered Medications Action Date Dose Rate Site Medication Order MAR Action 02/24/2019 10:34 AM CDT 10 mL lidocaine 1% (PF) (XYLOCAINE) injection Given Infiltration, TITRATE - FOR PROCEDURE USE, 1 dose, Starting Mirian 02/24/19 at 1034, Until Mirian 02/24/19 at 1034, Routine documented in this encounter Insurance Type Payer Benefit Subscriber ID Effective Phone Address Plan / Dates Group Medicare MEDICARE MEDICARE xxxxxxxxxx 1997- [phone] [address] Present [id number] EMILY JOHNSON [id number] PPO/POS BCBS [facility] BCBS FED [id number] 2001-P [phone] [id number] [place] [address] documented as of this encounter
--- OUTSIDE RECORDS SUMMARY | 2019-04-02 13:07 | XMS REPORT | Continuity of Care Document ---
Author Author [facility] Organization [facility] Address Unknown Phone Unavailable Care Team Providers Care Coal Loader Name Role Phone [employer] Unavailable Unavailable Problems Problem Status Onset Date Classification Date Reported Comments Source Febrile illness Active 04/07/2016 Problem 12/25/2017 [facility] Fecal impaction Active 04/07/2016 Problem 12/25/2017 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 ST segment changes on electrocardiogram Active 04/07/2016 Problem 12/25/2017 [facility] Medications Medication Details Route Status Patient Instructions Ordering Provider Order Date Source Progesterone,Micronized (Prometrium) 100 Mg Capsule, 100 Mg Oral Daily Active 12/11/2014 [facility] Risedronate Sodium (Actonel) 150 Mg Tablet, 150 Mg Oral Monthly Active 12/11/2014 [facility] Hyoscyamine (Levsin) 0.125 Mg Tab, 0.125 Mg Sublingual As Needed as needed Active 10/24/2014 [facility] Ferrous Sulfate (Iron) 27 Mg Tablet, 27 Mg Oral Active 11/16/2013 [facility] Gluc 2KCL/Chondr/Millie Hy/Hy Ac (Glucosamine & Chondroitin Cap) 1 Each Capsule, 1 Each Oral Daily Active 11/16/2013 [facility] Naproxen 500 Mg Tablet, 500 Mg Oral 2DAILY Active 11/16/2013 [facility] Ascorbic Acid (Vitamin C) 500 Mg Capsule.sa Daily Active [facility] Biotin 1000MCG Daily Active [facility] Calcium Carbonate/Vitamin D3 (Caltrate 600 + D Chewable Tab) 1 Each Tab.chew Twice A Day Active [facility] Cholecalciferol (Vitamin D3) (Vitamin D3) 2,000 Unit Tablet Daily [facility] Cyanocobalamin/Folic Acid (Vitamin N35-Phuwe Acid Tablet) 1 Each Tablet Daily [facility] Esomeprazole Mag Trihydrate (Nexium) 40 Mg Capsule. Active [facility] Meloxicam 15 Mg Tablet Daily [facility] Risedronate Sodium (Atelvia) 35 Mg Tablet.dr Sheets Active [facility] Vitamin E 400IU Qd Daily [facility] Allergies, Adverse Reactions, Alerts No Known Medication Allergies Immunizations No Data Provided for This Section Results Order Name Results Value Reference Range Date Interpretation Comments Source Estimated glomerular filtration rate (GFR) determination Estimated glomerular filtration rate (GFR) determination 45 60 07/09/2017 [facility] Serum or plasma creatinine measurement (mass/volume) Serum or plasma creatinine measurement (mass/volume) 1.14 0.57 - 1.11 07/09/2017 [facility] Serum or plasma urea nitrogen measurement (mass/volume) Serum or plasma urea nitrogen measurement (mass/volume) 17 7 - 26 07/09/2017 [facility] Serum or plasma urea nitrogen/creatinine mass ratio Serum or plasma urea nitrogen/creatinine mass ratio 15 6 - 25 07/09/2017 [facility] Automated blood basophil count (count/volume) Automated blood basophil count (count/volume) 0.1 0.0 - 0.1 03/29/2017 [facility] Automated blood basophil count as percentage of total leukocytes Automated blood basophil count as percentage of total leukocytes 0.9 0.0 - 1.0 03/29/2017 [facility] Automated blood eosinophil count Automated blood eosinophil count 0.1 0.0 - 0.4 03/29/2017 [facility] Automated blood eosinophil count as percentage of total leukocytes Automated blood eosinophil count as percentage of total leukocytes 2.5 0.0 - 6.0 03/29/2017 [facility] Automated blood hematocrit (volume fraction) Automated blood hematocrit (volume fraction) 38.7 34.2 - 44.1 03/29/2017 [facility] Automated blood lymphocyte count as percentage ot total leukocytes Automated blood lymphocyte count as percentage ot total leukocytes 26.9 18.0 - 39.1 03/29/2017 [facility] Automated blood monocyte count as percentage of total leukocytes Automated blood monocyte count as percentage of total leukocytes 13.2 4.4 - 11.3 03/29/2017 [facility] Automated blood neutrophil count Automated blood neutrophil count 3.2 2.1 - 6.9 03/29/2017 [facility] Automated blood platelet count (count/volume) Automated blood platelet count (count/volume) 250 140 - 360 03/29/2017 [facility] Automated blood segmented neutrophil count as percentage of total leukocytes Automated blood segmented neutrophil count as percentage of total leukocytes 56.3 38.7 - 80.0 03/29/2017 [facility] Automated erythrocyte mean corpuscular hemoglobin (mass per erythrocyte) Automated erythrocyte mean corpuscular hemoglobin (mass per erythrocyte) 32.4 28 - 32 03/29/2017 [facility] Automated erythrocyte mean corpuscular hemoglobin concentration measurement (mass/volume) Automated erythrocyte mean corpuscular hemoglobin concentration measurement (mass/volume) 33.1 31 - 35 03/29/2017 [facility] Automated erythrocyte mean corpuscular volume Automated erythrocyte mean corpuscular volume 98.0 81 - 99 03/29/2017 [facility] Blood erythrocytes automated count (number/volume) Blood erythrocytes automated count (number/volume) 3.95 3.6 - 5.1 03/29/2017 [facility] Blood hemoglobin measurement (moles/volume) Blood hemoglobin measurement (moles/volume) 12.8 12.0 - 16.0 03/29/2017 [facility] Blood leukocytes automated count (number/volume) Blood leukocytes automated count (number/volume) 5.61 4.8 - 10.8 03/29/2017 [facility] Blood lymphocytes count (number/volume) Blood lymphocytes count (number/volume) 1.5 1.0 - 3.2 03/29/2017 [facility] Blood monocytes automated count (number/volume) Blood monocytes automated count (number/volume) 0.7 0.2 - 0.8 03/29/2017 [facility] Glucose measurement Glucose measurement 102 74 - 118 03/29/2017 [facility] Plasma globulin measurement (mass/volume) Plasma globulin measurement (mass/volume) 2.6 2.3 - 3.5 03/29/2017 [facility] Serum or plasma alanine aminotransferase measurement (enzymatic activity/volume) Serum or plasma alanine aminotransferase measurement (enzymatic activity/volume) 15 0 - 55 03/29/2017 [facility] Serum or plasma albumin measurement (mass/volume) Serum or plasma albumin measurement (mass/volume) 4.2 3.5 - 5.0 03/29/2017 [facility] Serum or plasma albumin/globulin mass ratio Serum or plasma albumin/globulin mass ratio 1.6 0.8 - 2.0 03/29/2017 [facility] Serum or plasma alkaline phosphatase measurement (enzymatic activity/volume) Serum or plasma alkaline phosphatase measurement (enzymatic activity/volume) 68 40 - 150 03/29/2017 [facility] Serum or plasma anion gap Serum or plasma anion gap 14.7 8 - 16 03/29/2017 [facility] Serum or plasma calcium measurement (mass/volume) Serum or plasma calcium measurement (mass/volume) 10.5 8.4 - 10.2 03/29/2017 [facility] Serum or plasma carbon dioxide, total measurement (moles/volume) Serum or plasma carbon dioxide, total measurement (moles/volume) 26 22 - 29 03/29/2017 [facility] Serum or plasma chloride measurement (moles/volume) Serum or plasma chloride measurement (moles/volume) 104 98 - 107 03/29/2017 [facility] Serum or plasma creatine kinase MB measurement (mass/volume) Serum or plasma creatine kinase MB measurement (mass/volume) 2.50 0.00 - 5.00 03/29/2017 [facility] Serum or plasma creatine kinase measurement (enzymatic activity/volume) Serum or plasma creatine kinase measurement (enzymatic activity/volume) 315 29 - 168 03/29/2017 [facility] Serum or plasma potassium measurement (moles/volume) Serum or plasma potassium measurement (moles/volume) 4.7 3.5 - 5.1 03/29/2017 [facility] Serum or plasma protein measurement (mass/volume) Serum or plasma protein measurement (mass/volume) 6.8 6.5 - 8.1 03/29/2017 [facility] Serum or plasma sodium measurement (moles/volume) Serum or plasma sodium measurement (moles/volume) 140 136 - 145 03/29/2017 [facility] Serum or plasma total bilirubin measurement (mass/volume) Serum or plasma total bilirubin measurement (mass/volume) 0.7 0.2 - 1.2 03/29/2017 [facility] Troponin I measurement by highly sensitive enzyme immunoassay Troponin I measurement by highly sensitive enzyme immunoassay <0.001 0 - 0.300 03/29/2017 [facility] Red Cell Distribution Width 13.1 11.7 - 14.4 03/29/2017 [facility] IM GRANULOCYTES % 0.2 0.0 - 1.0 03/29/2017 [facility] Absolute Immature Granulocyte (auto 0.01 0 - 0.1 03/29/2017 [facility] Aspartate Amino Transf (AST/SGOT) 27 5 - 34 03/29/2017 [facility] B-Type Natriuretic Peptide 120.8 0 - 100 03/29/2017 [facility] Pathology Reports No Data Provided for This Section Diagnostic Reports No Data Provided for This Section Consultation Notes No Data Provided for This Section Discharge Summaries No Data Provided for This Section History and Physicals No Data Provided for This Section Vital Signs No Data Provided for This Section Encounters Location Location Details Encounter Type Encounter Number Reason For Visit Attending Provider ADM Date DC Date Status Source Departed Emergency Room [id number] MARQUISE GRANDE MD 03/29/2017 03/29/2017 [facility] Registered Clinic [id number] ROULA SAUCEDO MD 06/12/2017 [facility] Registered Clinic [id number] MERYL VÁSQUEZ MD 07/09/2017 [facility] Registered Clinic [id number] ROULA SAUCEDO MD 12/07/2017 [facility] Discharged Recurring [id number] BRITTNEY OLVERA MD 12/18/2017 12/24/2017 [facility] Procedures Procedure Code Date Perfomer Comments Source X-ray of chest, two views [id number] 12/07/2017 SHERYL [facility] Computed tomography of abdomen and pelvis with contrast [id number] 07/09/2017 THALIA [facility] Assessment and Plan No Data Provided for This Section Plan of Care Plan of Care Date Source Prescriptions See Medication Section 12/25/2017 [facility] Social History Social History Date Source Social History Problem Response Recorded Date/Time Onset Date Status Hx Psychiatric Problems No 04/07/2016 3:28am Not Applicable Not Applicable Hx Eating Disorder No 04/07/2016 3:28am Not Applicable Not Applicable Hx Substance Use Disorder No 04/07/2016 3:28am Not Applicable Not Applicable Hx Depression No 04/07/2016 3:28am Not Applicable Not Applicable Hx Alcohol Use No 04/07/2016 3:28am Not Applicable Not Applicable Hx Substance Use Treatment No 04/07/2016 3:28am Not Applicable Not Applicable Hx Physical Abuse No 04/07/2016 3:28am Not Applicable Not Applicable 12/25/2017 [facility] Family History No Data Provided for This Section Advance Directives Order Name Results Value Date Source Advance Directives Advance Directives Directive Response Recorded Date/Time Does the patient have an advance directive? Yes 04/07/16 3:28am If yes, is advance directive on file with [facility]? No 04/07/16 3:28am If not on file with [facility] will patient provide a copy? Yes 04/07/16 3:28am Do you have a Directive to Physician? No 12/10/17 1:32pm Do you have a Medical Power of Dolphin Researcher? No 12/10/17 1:32pm Do you have an out of hospital Do Not Resuscitate Order? No 12/10/17 1:32pm Do you have any special needs we should be aware of? No 12/10/17 1:32pm Do you have a support person here with you today? No 12/10/17 1:32pm Did patient receive Notice of Privacy Practices? Yes 12/10/17 1:32pm Did patient receive patient rights and responsibilities? Yes 12/10/17 1:32pm 12/25/2017 [facility] Functional Status No Data Provided for This Section
--- OUTSIDE RECORDS SUMMARY | 2019-04-02 13:07 | XMS REPORT | Summary of Care ---
Author Author [facility] - [facility] Organization [facility] Address Unknown Phone Unavailable Care Team Providers Care Personnel Officer Name Role Phone MillsGuille jacobson PCP Reason for Referral * (Routine) Referred By Contact Referred To Contact Status Reason Specialty Diagnoses / [place] [id number] [place] [phone] New Request Cardiology Diagnoses Permanent atrial fibrillation P rocedures TRANSESOPHAGEAL ECHO * (Routine) Referred By Contact Referred To Contact Status Reason Specialty Diagnoses / [place] [address] [place] [address] New Request Cardiology Diagnoses Permanent atrial fibrillation P rocedures TRANSESOPHAGEAL ECHO * (Routine) Referred By Contact Referred To Contact Status Reason Specialty Diagnoses / [place] [address] [address] [place] [phone] New Request Cardiology Diagnoses Permanent atrial fibrillation P rocedures TRANSESOPHAGEAL ECHO Reason for Visit * Auth/Cert Referred By Contact Referred To Contact Status Reason Specialty Diagnoses / Procedures [facility]-Electrophysiol Lab [address] [facility]. [address] [place] [phone] Cardiac Diagnoses Electrophysiolog i48.0 y P rocedures [place] PERQ CLSR TCAT L ATR APNDGE W/ENDOCARDIAL IMPLNT Encounter Details Care Team Description Date [place] [address] [address] [place] [phone] 2, [facility] Automatic Pattern Edger Permanent atrial fibrillation (Primary Dx) 02/24/2019 Hospital [facility] Health Encounter Echocardiograph Lab, [facility] [address] [place] [address] Allergies Comments Active Allergy Reactions Severity [...] VACCINE 03/27/2019 documented as of this encounter Results Not on filedocumented in this encounter Visit Diagnoses Diagnosis Permanent atrial fibrillation - Primary Atrial fibrillation documented in this encounter Insurance Type Payer Benefit Subscriber ID Effective Phone Address Plan / Dates Group Medicare MEDICARE MEDICARE xxxxxxxxxx 1997- [phone] [address] Present [id number] EM[place] J[place] [id number] PPO/POS BCBS [facility] FED [id number] 2001-P [phone] [id number] [place] [address] documented as of this encounter
--- OUTSIDE RECORDS SUMMARY | 2019-04-02 13:11 | XMS REPORT | Continuity of Care Document ---
Author Author [facility] Organization [facility] Address Unknown Phone Unavailable Care Team Providers Care Program Review Director Name Role Phone [email or web address] Information [facility] Unavailable Unavailable Problems Problem Status Onset Date Classification Date Reported Comments Source Febrile illness Active 04/07/2016 Problem 12/25/2017 [facility] Fecal impaction Active 04/07/2016 Problem 12/25/2017 [facility] Incomplete RBBB Active 04/07/2016 Problem 12/25/[address] [facility] [address] segment changes on electrocardiogram Active 04/07/2016 Problem 12/25/2017 [facility] Medications Medication Details Route Status Patient Instructions Ordering Provider Order Date Source Progesterone,Micronized (Prometrium) 100 Mg Capsule, 100 Mg Oral Daily Active 12/11/2014 [facility] Risedronate Sodium (Actonel) 150 Mg Tablet, 150 Mg Oral Monthly Active 12/11/2014 [facility] Hyoscyamine (Levsin) 0.125 Mg Tab, 0.125 Mg Sublingual As Needed as needed Active 10/24/2014 [facility] Ferrous Sulfate (Iron) 27 Mg Tablet, 27 Mg Oral Active 11/16/2013 [facility] Gluc 2KCL/Chondr/Millie Hy/Hy Ac (Glucosamine & Chondroitin Cap) 1 Each Capsule, 1 Each Oral Daily Active 11/16/2013 [facility] Naproxen 500 Mg Tablet, 500 Mg Oral 2DAILY Active 11/16/2013 [facility] Ascorbic Acid (Vitamin C) 500 Mg Capsule.sa Daily Active [facility] Biotin 1000MCG Daily Active [facility] Calcium Carbonate/Vitamin D3 (Caltrate 600 + D Chewable Tab) 1 Each Tab.chew Twice A Day Active [facility] Cholecalciferol (Vitamin D3) (Vitamin D3) 2,000 Unit Tablet Daily [facility] Cyanocobalamin/Folic Acid (Vitamin G24-Xhqxj Acid Tablet) 1 Each Tablet Daily [facility] Esomeprazole Mag Trihydrate (Nexium) 40 Mg Capsule. Active [facility] Meloxicam 15 Mg Tablet Daily [facility] Risedronate Sodium (Atelvia) 35 Mg Tablet.dr Sheets Active [facility] Vitamin E 400IU Qd Daily [facility] Allergies, Adverse Reactions, Alerts No Known Medication Allergies Immunizations No Data Provided for This Section Results Order Name Results Value Reference Range Date Interpretation Comments Source Estimated glomerular filtration rate (GFR) determination Estimated glomerular filtration rate (GFR) determination 45 60 07/09/2017 [facility] Serum or plasma creatinine measurement (mass/volume) Serum or plasma creatinine measurement (mass/volume) 1.14 0.57 - 1.11 07/09/2017 [facility] Serum or plasma urea nitrogen measurement (mass/volume) Serum or plasma urea nitrogen measurement (mass/volume) 17 7 - 26 07/09/2017 [facility] Serum or plasma urea nitrogen/creatinine mass ratio Serum or plasma urea nitrogen/creatinine mass ratio 15 6 - 25 07/09/2017 [facility] Automated blood basophil count (count/volume) Automated blood basophil count (count/volume) 0.1 0.0 - 0.1 03/29/2017 [facility] Automated blood basophil count as percentage of total leukocytes Automated blood basophil count as percentage of total leukocytes 0.9 0.0 - 1.0 03/29/2017 [facility] Automated blood eosinophil count Automated blood eosinophil count 0.1 0.0 - 0.4 03/29/2017 [facility] Automated blood eosinophil count as percentage of total leukocytes Automated blood eosinophil count as percentage of total leukocytes 2.5 0.0 - 6.0 03/29/2017 [facility] Automated blood hematocrit (volume fraction) Automated blood hematocrit (volume fraction) 38.7 34.2 - 44.1 03/29/2017 [facility] Automated blood lymphocyte count as percentage ot total leukocytes Automated blood lymphocyte count as percentage ot total leukocytes 26.9 18.0 - 39.1 03/29/2017 [facility] Automated blood monocyte count as percentage of total leukocytes Automated blood monocyte count as percentage of total leukocytes 13.2 4.4 - 11.3 03/29/2017 [facility] Automated blood neutrophil count Automated blood neutrophil count 3.2 2.1 - 6.9 03/29/2017 [facility] Automated blood platelet count (count/volume) Automated blood platelet count (count/volume) 250 140 - 360 03/29/2017 [facility] Automated blood segmented neutrophil count as percentage of total leukocytes Automated blood segmented neutrophil count as percentage of total leukocytes 56.3 38.7 - 80.0 03/29/2017 [facility] Automated erythrocyte mean corpuscular hemoglobin (mass per erythrocyte) Automated erythrocyte mean corpuscular hemoglobin (mass per erythrocyte) 32.4 28 - 32 03/29/2017 [facility] Automated erythrocyte mean corpuscular hemoglobin concentration measurement (mass/volume) Automated erythrocyte mean corpuscular hemoglobin concentration measurement (mass/volume) 33.1 31 - 35 03/29/2017 [facility] Automated erythrocyte mean corpuscular volume Automated erythrocyte mean corpuscular volume 98.0 81 - 99 03/29/2017 [facility] Blood erythrocytes automated count (number/volume) Blood erythrocytes automated count (number/volume) 3.95 3.6 - 5.1 03/29/2017 [facility] Blood hemoglobin measurement (moles/volume) Blood hemoglobin measurement (moles/volume) 12.8 12.0 - 16.0 03/29/2017 [facility] Blood leukocytes automated count (number/volume) Blood leukocytes automated count (number/volume) 5.61 4.8 - 10.8 03/29/2017 [facility] Blood lymphocytes count (number/volume) Blood lymphocytes count (number/volume) 1.5 1.0 - 3.2 03/29/2017 [facility] Blood monocytes automated count (number/volume) Blood monocytes automated count (number/volume) 0.7 0.2 - 0.8 03/29/2017 [facility] Glucose measurement Glucose measurement 102 74 - 118 03/29/2017 [facility] Plasma globulin measurement (mass/volume) Plasma globulin measurement (mass/volume) 2.6 2.3 - 3.5 03/29/2017 [facility] Serum or plasma alanine aminotransferase measurement (enzymatic activity/volume) Serum or plasma alanine aminotransferase measurement (enzymatic activity/volume) 15 0 - 55 03/29/2017 [facility] Serum or plasma albumin measurement (mass/volume) Serum or plasma albumin measurement (mass/volume) 4.2 3.5 - 5.0 03/29/2017 [facility] Serum or plasma albumin/globulin mass ratio Serum or plasma albumin/globulin mass ratio 1.6 0.8 - 2.0 03/29/2017 [facility] Serum or plasma alkaline phosphatase measurement (enzymatic activity/volume) Serum or plasma alkaline phosphatase measurement (enzymatic activity/volume) 68 40 - 150 03/29/2017 [facility] Serum or plasma anion gap Serum or plasma anion gap 14.7 8 - 16 03/29/2017 [facility] Serum or plasma calcium measurement (mass/volume) Serum or plasma calcium measurement (mass/volume) 10.5 8.4 - 10.2 03/29/2017 [facility] Serum or plasma carbon dioxide, total measurement (moles/volume) Serum or plasma carbon dioxide, total measurement (moles/volume) 26 22 - 29 03/29/2017 [facility] Serum or plasma chloride measurement (moles/volume) Serum or plasma chloride measurement (moles/volume) 104 98 - 107 03/29/2017 [facility] Serum or plasma creatine kinase MB measurement (mass/volume) Serum or plasma creatine kinase MB measurement (mass/volume) 2.50 0.00 - 5.00 03/29/2017 [facility] Serum or plasma creatine kinase measurement (enzymatic activity/volume) Serum or plasma creatine kinase measurement (enzymatic activity/volume) 315 29 - 168 03/29/2017 [facility] Serum or plasma potassium measurement (moles/volume) Serum or plasma potassium measurement (moles/volume) 4.7 3.5 - 5.1 03/29/2017 [facility] Serum or plasma protein measurement (mass/volume) Serum or plasma protein measurement (mass/volume) 6.8 6.5 - 8.1 03/29/2017 [facility] Serum or plasma sodium measurement (moles/volume) Serum or plasma sodium measurement (moles/volume) 140 136 - 145 03/29/2017 [facility] Serum or plasma total bilirubin measurement (mass/volume) Serum or plasma total bilirubin measurement (mass/volume) 0.7 0.2 - 1.2 03/29/2017 [facility] Troponin I measurement by highly sensitive enzyme immunoassay Troponin I measurement by highly sensitive enzyme immunoassay <0.001 0 - 0.300 03/29/2017 [facility] Red Cell Distribution Width 13.1 11.7 - 14.4 03/29/2017 [facility] IM GRANULOCYTES % 0.2 0.0 - 1.0 03/29/2017 [facility] Absolute Immature Granulocyte (auto 0.01 0 - 0.1 03/29/2017 [facility] Aspartate Amino Transf (AST/SGOT) 27 5 - 34 03/29/2017 [facility] B-Type Natriuretic Peptide 120.8 0 - 100 03/29/2017 [facility] Pathology Reports No Data Provided for [...] DC Date Status Source Departed Emergency Room [id number] MARQUISE GRANDE MD 03/29/2017 03/29/2017 [facility] Registered [facility] [id number] ROULA SAUCEDO MD 06/12/2017 [facility] [id number] MERYL VÁSQUEZ MD 07/09/2017 [facility] [id number] ROULA SAUCEDO MD 12/07/2017 [facility] Discharged Recurring [id number] BRITTNEY OLVERA MD 12/18/2017 12/24/2017 [facility] Procedures Procedure Code Date Perfomer Comments Source X-ray of chest, two views [id number] 12/07/2017 SHERYL [facility] Computed tomography of abdomen and pelvis with contrast [id number] 07/09/2017 THALIA [facility] Assessment and Plan No Data Provided for This Section Plan of Care Plan of Care Date Source Prescriptions See Medication Section 12/25/2017 [facility] Social History Social History Date Source [...] 04/07/2016 3:28am Not Applicable Not Applicable 12/25/2017 [facility] Family History No Data Provided for This Section Advance Directives Order Name Results Value Date Source Advance Directives Advance Directives Directive Response Recorded Date/Time Does the patient have an advance directive? Yes 04/07/16 3:28am If yes, is advance directive on file with [facility]? No 04/07/16 3:28am If not on file with [facility] will patient provide a copy? Yes 04/07/16 3:28am Do you have a Directive to Physician? No 12/10/17 1:32pm Do you have a Medical Power of Reagent Tender? No 12/10/17 1:32pm Do you have an [...] rights and responsibilities? Yes 12/10/17 1:32pm 12/25/2017 [facility] Functional Status No Data Provided for This Section
[2019-04-02] MEDS ORDERED: ASPIRIN 81 MG CHEW TAB PO NR (13:30)
[2019-04-02 13:32] LABS: BASOPHILS # (AUTO) 0.1 (0.0-0.1); BASOPHILS % 0.7 % (0.0-1.0); EOSINOPHILS # (AUTO) 0.1 (0.0-0.4); EOSINOPHILS % 0.7 % (0.0-6.0); HEMATOCRIT 37.9 % (34.2-44.1); HEMOGLOBIN 12.6 g/dL (12.0-16.0); LYMPHOCYTES # (AUTO) 1.3 (1.0-3.2); LYMPHOCYTES % 14.9 % (18.0-39.1); MEAN CORPUSCULAR HEMOGLOBIN 32.8 pg (28-32); MEAN CORPUSCULAR HGB CONC 33.2 g/dL (31-35); MEAN CORPUSCULAR VOLUME 98.7 fL (81-99); MONOCYTES # (AUTO) 0.6 (0.2-0.8); MONOCYTES % 6.7 % (4.4-11.3); NEUTROPHILS # (AUTO) 6.8 (2.1-6.9); NEUTROPHILS % 76.8 % (38.7-80.0); PLATELET COUNT 297 x10e3/uL (140-360); RED BLOOD COUNT 3.84 x10e6/uL (3.6-5.1); RED CELL DISTRIBUTION WIDTH 13.3 % (11.7-14.4)
[2019-04-02 13:40] LABS: INR 0.98; PROTHROMBIN TIME 13.5 seconds (11.9-14.5)
[2019-04-02 13:41] LABS: PARTIAL THROMBOPLASTIN TIME 34.1 seconds (23.8-35.5)
[2019-04-02 13:50] LABS: ALBUMIN 4.1 g/dL (3.5-5.0); ALBUMIN/GLOBULIN RATIO 1.4 (0.8-2.0); ANION GAP 16.4 mmol/L (8-16); CALCIUM 10.9 mg/dL (8.4-10.2); CREATININE, SERUM 1.47 mg/dL (0.57-1.11); POTASSIUM 4.4 mmol/L (3.5-5.1)
[2019-04-02 13:56] LABS: CREATINE KINASE MB 0.8 ng/mL (0-5.0)
--- NOTE | 2019-04-02 14:33 | Diagnostic Imaging Report ---
EXAMINATION: CHEST SINGLE (PORTABLE) INDICATION: Chest pain. COMPARISON: Chest radiograph 05/31/2018. FINDINGS: TUBES and LINES: None. LUNGS: The lungs are hyperinflated. Rounded opacity overlying the left lower lung likely represents nipple shadow. There is no evidence of pneumonia or pulmonary edema. PLEURA: No pleural effusion or pneumothorax. HEART AND MEDIASTINUM: The cardiomediastinal silhouette is unremarkable. There are atherosclerotic calcifications within the aorta. BONES AND SOFT TISSUES: No acute osseous abnormality. Levoconvex curvature of the lower thoracic spine. UPPER ABDOMEN: No free air under the diaphragm. IMPRESSION: Emphysematous changes of the lungs. No acute radiographic abnormality. Signed by: Dr. Matias Palomo MD on 04/02/2019 2:30 PM
[2019-04-02 15:38] LABS: BILIRUBIN,URINE NEGATIVE (NEGATIVE); CLARITY,URINE CLEAR (CLEAR); COLOR,URINE YELLOW (YELLOW); KETONES,URINE NEGATIVE (NEGATIVE); LEUKOCYTE ESTERASE ,URINE NEGATIVE (NEGATIVE); NITRITE,URINE NEGATIVE (NEGATIVE); PROTEIN,URINE DIPSTICK NEGATIVE (NEGATIVE); URINE UROBILINOGEN 0.2 mg/dL (0.2 - 1)
[2019-04-02 15:54] LABS: BACTERIA,URINE FEW /HPF; EPITHELIAL CELLS,URINE FEW /LPF; RBC,URINE 0-5 /HPF (0-5); WBC,URINE (MAN) 0-5 /HPF (0-5)
--- NOTE | 2019-04-02 16:23 | NUR ---
dr. hanley in room to see the pt. and discuss poc/pending admit
[2019-04-02] MEDS: FAMOTIDINE 20 MG/2 ML VIAL IV SCH (16:30)
[2019-04-02] MEDS ORDERED: NITROGLYCERIN 0.4 MG SUBL SL PRN (16:30)
[2019-04-02] MEDS ORDERED: ONDANSETRON HCL INJ 2MG/ML 2ML 2 MG/ML VIAL IV PRN (16:30)
--- OUTSIDE RECORDS SUMMARY | 2019-04-02 16:53 | XMS REPORT | Continuity of Care Document ---
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 Problem 12/25/[address] [facility] [address] segment changes on electrocardiogram Active 04/07/2016 Problem 12/25/2017 [facility] Medications Medication Details Route Status Patient Instructions Ordering Provider Order Date Source Progesterone,Micronized (Prometrium) 100 Mg Capsule, 100 Mg Oral Daily Active 12/11/2014 [facility] Risedronate Sodium (Actonel) 150 Mg Tablet, 150 Mg Oral Monthly Active 12/11/2014 [facility] Hyoscyamine (Levsin) 0.125 Mg Tab, 0.125 Mg Sublingual As Needed as needed Active 10/24/2014 [facility] Ferrous Sulfate (Iron) 27 Mg Tablet, 27 Mg Oral Active 11/16/2013 [facility] Gluc 2KCL/Chondr/Millie Hy/Hy Ac (Glucosamine & Chondroitin Cap) 1 Each Capsule, 1 Each Oral Daily Active 11/16/2013 [facility] Naproxen 500 Mg Tablet, 500 Mg Oral 2DAILY Active 11/16/2013 [facility] Ascorbic Acid (Vitamin C) 500 Mg Capsule.sa Daily Active [facility] Biotin 1000MCG Daily Active [facility] Calcium Carbonate/Vitamin D3 (Caltrate 600 + D Chewable Tab) 1 Each Tab.chew Twice A Day Active [facility] Cholecalciferol (Vitamin D3) (Vitamin D3) 2,000 Unit Tablet Daily [facility] Cyanocobalamin/Folic Acid (Vitamin M40-Rtdfq Acid Tablet) 1 Each Tablet Daily [facility] Esomeprazole Mag Trihydrate (Nexium) 40 Mg Capsule. Active [facility] Meloxicam 15 Mg Tablet Daily [facility] Risedronate Sodium (Atelvia) 35 Mg Tablet.dr Sheets Active [facility] Vitamin E 400IU Qd Daily [facility] Allergies, Adverse Reactions, Alerts No Known Medication Allergies Immunizations No Data Provided for This Section Results Order Name Results Value Reference Range Date Interpretation Comments Source Estimated glomerular filtration rate (GFR) determination Estimated glomerular filtration rate (GFR) determination 45 60 07/09/2017 [facility] Serum or plasma creatinine measurement (mass/volume) Serum or plasma creatinine measurement (mass/volume) 1.14 0.57 - 1.11 07/09/2017 [facility] Serum or plasma urea nitrogen measurement (mass/volume) Serum or plasma urea nitrogen measurement (mass/volume) 17 7 - 26 07/09/2017 [facility] Serum or plasma urea nitrogen/creatinine mass ratio Serum or plasma urea nitrogen/creatinine mass ratio 15 6 - 25 07/09/2017 [facility] Automated blood basophil count (count/volume) Automated blood basophil count (count/volume) 0.1 0.0 - 0.1 03/29/2017 [facility] Automated blood basophil count as percentage of total leukocytes Automated blood basophil count as percentage of total leukocytes 0.9 0.0 - 1.0 03/29/2017 [facility] Automated blood eosinophil count Automated blood eosinophil count 0.1 0.0 - 0.4 03/29/2017 [facility] Automated blood eosinophil count as percentage of total leukocytes Automated blood eosinophil count as percentage of total leukocytes 2.5 0.0 - 6.0 03/29/2017 [facility] Automated blood hematocrit (volume fraction) Automated blood hematocrit (volume fraction) 38.7 34.2 - 44.1 03/29/2017 [facility] Automated blood lymphocyte count as percentage ot total leukocytes Automated blood lymphocyte count as percentage ot total leukocytes 26.9 18.0 - 39.1 03/29/2017 [facility] Automated blood monocyte count as percentage of total leukocytes Automated blood monocyte count as percentage of total leukocytes 13.2 4.4 - 11.3 03/29/2017 [facility] Automated blood neutrophil count Automated blood neutrophil count 3.2 2.1 - 6.9 03/29/2017 [facility] Automated blood platelet count (count/volume) Automated blood platelet count (count/volume) 250 140 - 360 03/29/2017 [facility] Automated blood segmented neutrophil count as percentage of total leukocytes Automated blood segmented neutrophil count as percentage of total leukocytes 56.3 38.7 - 80.0 03/29/2017 [facility] Automated erythrocyte mean corpuscular hemoglobin (mass per erythrocyte) Automated erythrocyte mean corpuscular hemoglobin (mass per erythrocyte) 32.4 28 - 32 03/29/2017 [facility] Automated erythrocyte mean corpuscular hemoglobin concentration measurement (mass/volume) Automated erythrocyte mean corpuscular hemoglobin concentration measurement (mass/volume) 33.1 31 - 35 03/29/2017 [facility] Automated erythrocyte mean corpuscular volume Automated erythrocyte mean corpuscular volume 98.0 81 - 99 03/29/2017 [facility] Blood erythrocytes automated count (number/volume) Blood erythrocytes automated count (number/volume) 3.95 3.6 - 5.1 03/29/2017 [facility] Blood hemoglobin measurement (moles/volume) Blood hemoglobin measurement (moles/volume) 12.8 12.0 - 16.0 03/29/2017 [facility] Blood leukocytes automated count (number/volume) Blood leukocytes automated count (number/volume) 5.61 4.8 - 10.8 03/29/2017 [facility] Blood lymphocytes count (number/volume) Blood lymphocytes count (number/volume) 1.5 1.0 - 3.2 03/29/2017 [facility] Blood monocytes automated count (number/volume) Blood monocytes automated count (number/volume) 0.7 0.2 - 0.8 03/29/2017 [facility] Glucose measurement Glucose measurement 102 74 - 118 03/29/2017 [facility] Plasma globulin measurement (mass/volume) Plasma globulin measurement (mass/volume) 2.6 2.3 - 3.5 03/29/2017 [facility] Serum or plasma alanine aminotransferase measurement (enzymatic activity/volume) Serum or plasma alanine aminotransferase measurement (enzymatic activity/volume) 15 0 - 55 03/29/2017 [facility] Serum or plasma albumin measurement (mass/volume) Serum or plasma albumin measurement (mass/volume) 4.2 3.5 - 5.0 03/29/2017 [facility] Serum or plasma albumin/globulin mass ratio Serum or plasma albumin/globulin mass ratio 1.6 0.8 - 2.0 03/29/2017 [facility] Serum or plasma alkaline phosphatase measurement (enzymatic activity/volume) Serum or plasma alkaline phosphatase measurement (enzymatic activity/volume) 68 40 - 150 03/29/2017 [facility] Serum or plasma anion gap Serum or plasma anion gap 14.7 8 - 16 03/29/2017 [facility] Serum or plasma calcium measurement (mass/volume) Serum or plasma calcium measurement (mass/volume) 10.5 8.4 - 10.2 03/29/2017 [facility] Serum or plasma carbon dioxide, total measurement (moles/volume) Serum or plasma carbon dioxide, total measurement (moles/volume) 26 22 - 29 03/29/2017 [facility] Serum or plasma chloride measurement (moles/volume) Serum or plasma chloride measurement (moles/volume) 104 98 - 107 03/29/2017 [facility] Serum or plasma creatine kinase MB measurement (mass/volume) Serum or plasma creatine kinase MB measurement (mass/volume) 2.50 0.00 - 5.00 03/29/2017 [facility] Serum or plasma creatine kinase measurement (enzymatic activity/volume) Serum or plasma creatine kinase measurement (enzymatic activity/volume) 315 29 - 168 03/29/2017 [facility] Serum or plasma potassium measurement (moles/volume) Serum or plasma potassium measurement (moles/volume) 4.7 3.5 - 5.1 03/29/2017 [facility] Serum or plasma protein measurement (mass/volume) Serum or plasma protein measurement (mass/volume) 6.8 6.5 - 8.1 03/29/2017 [facility] Serum or plasma sodium measurement (moles/volume) Serum or plasma sodium measurement (moles/volume) 140 136 - 145 03/29/2017 [facility] Serum or plasma total bilirubin measurement (mass/volume) Serum or plasma total bilirubin measurement (mass/volume) 0.7 0.2 - 1.2 03/29/2017 [facility] Troponin I measurement by highly sensitive enzyme immunoassay Troponin I measurement by highly sensitive enzyme immunoassay <0.001 0 - 0.300 03/29/2017 [facility] Red Cell Distribution Width 13.1 11.7 - 14.4 03/29/2017 [facility] IM GRANULOCYTES % 0.2 0.0 - 1.0 03/29/2017 [facility] Absolute Immature Granulocyte (auto 0.01 0 - 0.1 03/29/2017 [facility] Aspartate Amino Transf (AST/SGOT) 27 5 - 34 03/29/2017 [facility] B-Type Natriuretic Peptide 120.8 0 - 100 03/29/2017 [facility] Pathology Reports No Data Provided for This [...] DC Date Status Source Departed Emergency Room [id number] MARQUISE GRANDE MD 03/29/2017 03/29/2017 [facility] Registered Clinic [id number] ROULA SAUCEDO MD 06/12/2017 [facility] [id number] MERYL VÁSQUEZ MD 07/09/2017 [facility] Reg[facility] [id number] ROULA SAUCEDO MD 12/07/2017 [facility] Discharged Recurring [id number] BRITTNEY OLVERA MD 12/18/2017 12/24/2017 [facility] Procedures Procedure Code Date Perfomer Comments Source X-ray of chest, two views [id number] 12/07/2017 SHERYL [facility] Computed tomography of abdomen and pelvis with contrast [id number] 07/09/2017 THALIA [facility] Assessment and Plan No Data Provided for This Section Plan of Care Plan of Care Date Source Prescriptions See Medication Section 12/25/2017 [facility] Social History Social History Date Source Social [...] 04/07/2016 3:28am Not Applicable Not Applicable 12/25/2017 [facility] Family History No Data Provided for This Section Advance Directives Order Name Results Value Date Source Advance Directives Advance Directives Directive Response Recorded Date/Time Does the patient have an advance directive? Yes 04/07/16 3:28am If yes, is advance directive on file with [facility]? No 04/07/16 3:28am If not on file with [facility] will patient provide a copy? Yes 04/07/16 3:28am Do you have a Directive to Physician? No 12/10/17 1:32pm Do you have a Medical Power of Pyrometer Temperature Regulator? No 12/10/17 1:32pm Do you have an [...] rights and responsibilities? Yes 12/10/17 1:32pm 12/25/2017 [facility] Functional Status No Data Provided for This Section
--- NOTE | 2019-04-02 17:25 | NUR ---
PTS DAUGHTER GOING TO GO HOME TO GET HOME MEDS. PT WAS UNSURE OF MEDS AND DOSAGES.
[2019-04-02] MEDS ORDERED: AMIODARONE HCL200 MG PO (18:50)
[2019-04-02] MEDS ORDERED: METOPROLOL SUCC25 MG PO (18:50)
[2019-04-02] MEDS ORDERED: EVOXAC30 MG PO (18:52)
[2019-04-02] MEDS ORDERED: LOSARTAN POTASS25 MG PO (18:52)
--- NOTE | 2019-04-02 19:20 | NUR ---
Bed side shift report taken from morning Rn.pt is sitting in the bed.denied chest pain.
--- NOTE | 2019-04-02 21:21 | NUR ---
Assessment done.no resp.distress.no pain voiced.bp checked and noted 115/67.iv to right for arm patent.bed locked and in lowest position.phone and call light within reach.instructed to call for asistance as needed.
[2019-04-02 21:37] LABS: CREATINE KINASE MB 0.8 ng/mL (0-5.0)
[2019-04-02] MEDS: SODIUM CHLORIDE 0.9% 1000ML 1,000 ML IV SCH (21:40)
[2019-04-02] MEDS ORDERED: HYDRALAZINE HCL 20 MG/ML VIAL IV PRN (21:45)
--- NOTE | 2019-04-02 23:47 | NUR ---
Received order new from md Pandya .
[2019-04-03] VITALS (7 sets, daily range): BP systolic 113–150; BP diastolic 56–73
--- NOTE | 2019-04-03 02:20 | Consultation ---
DATE OF CONSULTATION: 04/02/2019 Cardiology Consult Note REASON FOR CONSULT: Chest pain and shortness of breath. CHIEF COMPLAINT: Chest pain and dizziness. HISTORY OF PRESENT ILLNESS: 88-year-old woman who is known to our service. She has a history of aortic valve endocarditis; paroxysmal atrial fibrillation, on Eliquis; history of brain aneurysm, status post ligation in 2003; venous insufficiency; hypertension; history of DVT and PE, who presents with complaint about feeling very dizzy this morning as well as having sharp left-sided chest pain. Her chest pain has now resolved and she feels much better. She denies any heart failure symptoms otherwise, no syncope. PAST MEDICAL HISTORY: 1. Hypertension. 2. Hyperlipidemia. 3. History of aortic valve endocarditis, status post antibiotics. 4. Moderate aortic stenosis. 5. History of DVT and PE. 6. AFib, on Eliquis. SOCIAL HISTORY: She does not smoke, drink, or abuse drugs. FAMILY HISTORY: Noncontributory. REVIEW OF SYSTEMS: As per HPI, otherwise negative. PHYSICAL EXAMINATION: VITAL SIGNS: Temperature afebrile, pulse 62, respiratory rate 20, blood pressure 124/87, and saturating 96% on room air. GENERAL: Elderly female, in no acute distress. CARDIOVASCULAR: Regular rate and rhythm, 2/6 systolic murmur at right upper sternal border and radiating throughout the precordium. LUNGS: Clear to auscultation bilaterally. ABDOMEN: Soft, nontender, and nondistended. NEURO AND PSYCH: Alert and oriented to person, place, and time. Normal affect. INPATIENT MEDICATIONS: Reviewed. LABORATORY DATA: Reviewed. Cardiac enzymes negative x1. BNP is 45, and creatinine is 1.5 with BUN of 24. TELEMETRY DATA: Reviewed, showed normal sinus rhythm. Chest x-ray reviewed, shows no acute abnormalities. ASSESSMENT: 1. Moderate aortic stenosis. 2. Hypertension. 3. Hyperlipidemia. 4. Atrial fibrillation, on Eliquis. 5. History of lower extremity deep vein thrombosis and pulmonary embolism. PLAN: Continue home cardiovascular medications for blood pressure control. The patient was likely dehydrated on admission and given some IV fluids and now feels much better. If her creatinine improves tomorrow, she is okay to be discharged from cardiovascular standpoint and follow up in clinic as needed. Thank you for this consult. We will continue to follow. MD KIM Gordon/PABLO /[id number]
[2019-04-03] MEDS: FAMOTIDINE 20 MG/2 ML VIAL IV SCH (04:08)
[2019-04-03 05:09] LABS: BASOPHILS % 0.6 % (0.0-1.0); EOSINOPHILS # (AUTO) 0.2 (0.0-0.4); EOSINOPHILS % 2.8 % (0.0-6.0); HEMATOCRIT 36.8 % (34.2-44.1); HEMOGLOBIN 11.8 g/dL (12.0-16.0); LYMPHOCYTES # (AUTO) 1.7 (1.0-3.2); LYMPHOCYTES % 23.6 % (18.0-39.1); MEAN CORPUSCULAR HEMOGLOBIN 32.4 pg (28-32); MEAN CORPUSCULAR HGB CONC 32.1 g/dL (31-35); MEAN CORPUSCULAR VOLUME 101.1 fL (81-99); MONOCYTES % 13.8 % (4.4-11.3); NEUTROPHILS # (AUTO) 4.2 (2.1-6.9); NEUTROPHILS % 58.9 % (38.7-80.0); PLATELET COUNT 248 x10e3/uL (140-360); RED BLOOD COUNT 3.64 x10e6/uL (3.6-5.1); RED CELL DISTRIBUTION WIDTH 13.2 % (11.7-14.4)
[2019-04-03 05:39] LABS: ALBUMIN 3.8 g/dL (3.5-5.0); ALBUMIN/GLOBULIN RATIO 1.4 (0.8-2.0); ANION GAP 15.4 mmol/L (8-16); CALCIUM 10.3 mg/dL (8.4-10.2); CREATININE, SERUM 1.33 mg/dL (0.57-1.11); POTASSIUM 4.4 mmol/L (3.5-5.1)
[2019-04-03] MEDS: SODIUM CHLORIDE 0.9% 1000ML 1,000 ML IV SCH (06:02)
--- NOTE | 2019-04-03 06:38 | NUR ---
NO CHEST PAIN VOICED.BED SIDE REPORT GIVEN TO ONCOMING RN.STABLE CONDITION.
[2019-04-03 06:40] LABS: CREATINE KINASE MB 0.7 ng/mL (0-5.0)
[2019-04-03] MEDS: METOPROLOL SUCCINATE 25 MG TAB XL PO SCH (08:26)
[2019-04-03] MEDS ORDERED: LOSARTAN POTASSIUM 25 MG TAB PO SCH (09:00)
[2019-04-03] MEDS ORDERED: ASPIRIN 81 MG ENTERIC COATED PO SCH (09:00)
[2019-04-03 13:00] LABS: CHOL/HDL RATIO 3.7 (3.0-3.6)
[2019-04-03] MEDS ORDERED: RISEDRONATE SODIUM 35 MG PO SCH (13:45)
[2019-04-03 18:06] LABS: BILIRUBIN,URINE NEGATIVE (NEGATIVE); CLARITY,URINE CLEAR (CLEAR); COLOR,URINE YELLOW (YELLOW); KETONES,URINE NEGATIVE (NEGATIVE); LEUKOCYTE ESTERASE ,URINE NEGATIVE (NEGATIVE); NITRITE,URINE NEGATIVE (NEGATIVE); PROTEIN,URINE DIPSTICK NEGATIVE (NEGATIVE); URINE UROBILINOGEN 0.2 mg/dL (0.2 - 1)
[2019-04-03 18:26] LABS: BACTERIA,URINE FEW /HPF; EPITHELIAL CELLS,URINE FEW /LPF; WBC,URINE (MAN) 0-5 /HPF (0-5)
[2019-04-03 18:30] LABS: CREATININE,URINE RANDOM 65.48 mg/dL (47-110); SODIUM,URINE 94 mmol/L
[2019-04-03 18:54] LABS: EOSINOPHIL SMEAR,URINE NONE SEEN (NONE SEEN)
--- NOTE | 2019-04-03 19:10 | NUR ---
Received the patient from morning Rn. no chest pain voiced stable condition.
--- NOTE | 2019-04-03 19:32 | Consultation ---
DATE OF CONSULTATION: REASON FOR CONSULT: Increased BUN and creatinine. HISTORY OF PRESENT ILLNESS: This is an 88-year-old female, who has a history of aortic valve endocarditis, atrial fibrillation, who presented with complaining of dizziness and sharp left chest pain, was found to have creatinine of 1.33. PAST MEDICAL HISTORY: Includes: 1. Hypertension. 2. Hyperlipidemia. 3. History of DVT and PE. 4. Active fibrillation, on Eliquis. 5. Moderate aortic stenosis. 6. Aortic valve endocarditis, previously status post treatment. FAMILY HISTORY: Noncontributory. SOCIAL HISTORY: No smoking. No alcohol. No drugs. REVIEW OF SYSTEMS: No dysuria. No hematuria. No blood in stool. No blood in the urine. No changes in vision. No changes in hearing. No shortness of breath. Positive chest pain. No change in appetite and nausea. No vomiting. No constipation. Basically, all pertinent are as above, otherwise negative. PHYSICAL EXAMINATION: GENERAL: Alert, following commands. HEENT: Pupils are equal and reactive to light and accommodation. NECK: No JVD. No bruit. LUNGS: Rhonchi. No rales. HEART: Regular rate and rhythm. No S3, no S4. ABDOMEN: Nontender and nondistended. No hepatomegaly or splenomegaly. EXTREMITIES: No clubbing, no cyanosis, no edema. NEUROLOGIC: Cranial nerves II through XII grossly intact. Sensation intact. Motor intact. VITAL SIGNS: Blood pressure 124/87. LABORATORY DATA: White count 7.15, hemoglobin 11.8, and hematocrit 36.8. Sodium 138, potassium 4.4, chloride 105, creatinine 1.33, down from 1.47. CK 222. Albumin 3.8. Urinalysis is negative. Chest x-ray, emphysematous changes of the lungs. ASSESSMENT AND PLAN: Most likely acute kidney failure. We will check fractional excretion of sodium and also check urine protein electrophoresis. The patient is anemic, but this can be also [id number] and chronic kidney disease can be secondary to hypertension. The is currently improving with decreased creatinine and ? since the patient is having aortic valve issues plus diuretics, so we can think also of over-diuresis, so for now, medications have been changed and will be monitoring the BUN and creatinine, and other medication that the patient is on losartan for which we will continue, but probably we will need to reintroduce diuretics at a slower rate and a lower dose, so in short, possible acute kidney failure, but also we need to keep in mind chronic kidney disease, stage 3. Please see orders. Demarcus Peñaloza MD MA/PABLO /[id number]
--- NOTE | 2019-04-03 19:43 | History and Physical ---
HISTORY OF PRESENT ILLNESS: An 88-year-old female, who has a past medical history positive for hypertension, came here to the hospital complaining of weakness and chest pain. Chest pain lasted a few seconds, it was sharp in nature in the middle of the chest has gone and never came back again. She had no other symptoms like shortness of breath. No vomiting. The patient was admitted to the hospital due to the chest pain and also acute renal insufficiency. REVIEW OF SYSTEMS: CARDIOVASCULAR: She had one isolated episode of chest pain that lasted few seconds has gone. No palpitation. RESPIRATORY: No shortness of breath. No cough. GASTROINTESTINAL: No nausea or vomiting. No diarrhea. GENITOURINARY: No frequency. No dysuria. PAST MEDICAL HISTORY: Positive for hypertension. SOCIAL HISTORY: She denies smoking or drinking. PHYSICAL EXAMINATION: VITAL SIGNS: Blood pressure 150/68, temperature 97.7, heart rate is 76 per minute, respiratory rate 18 per minute, O2 saturation 95%. HEART: Showed regular rhythm. Normal S1, S2 sound. LUNGS: Clear bilaterally. ABDOMEN: Soft. EXTREMITIES: Show no evidence of cyanosis or hematoma. LABORATORY DATA: On the BMP; sodium 138, potassium 4.4, chloride 105 CO2 22, BUN 29, creatinine 1.33, glucose 96. On CBC; white count 7.15, hemoglobin 11.8, hematocrit 36.8, platelet count 248,000. PT 13.5, INR 0.98, PTT 34.1. AST 20, ALT 7, total bilirubin 0.4, alkaline phosphatase 73. Chest x-ray showed emphysema. FINAL IMPRESSION: 1. Chest pain. 2. Acute renal failure. 3. Anemia. 4. Hypercalcemia. PLAN OF TREATMENT: EKG showed normal sinus rhythm. No evidence of any ST-segment elevation or depression. We are going to continue IV fluids at 75 mL an hour, aspirin 81 mg daily, nitroglycerin 0.4 mg q.5 minutes p.r.n. for chest pain, not more than three tablets. Cardiology consult with Dr. Mancilla has been requested. Nephrology consult Dr. Black has been requested. Renal ultrasound has been ordered. Continue losartan 25 mg daily. Continue metoprolol 25 mg daily, Zofran 4 mg IV q.4 hours as needed hydralazine 10 mg IV q.4 hours as needed. We are going to discontinue the IV fluids. Repeat BMP tomorrow. MD STERLING Rust /[id number]
[2019-04-04] VITALS: BP 131/63
[2019-04-04 04:00] VITALS: BP 167/74
--- NOTE | 2019-04-04 04:44 | Progress Note ---
DATE: 04/03/2019 Cardiology Progress Note SUBJECTIVE: No major events. OBJECTIVE: VITAL SIGNS: Temperature afebrile, pulse 65, respiratory rate 18, blood pressure 149/73, saturating 98% on room air. GENERAL: Elderly female, in no acute distress. CARDIOVASCULAR: Regular rate and rhythm. No murmurs, rubs, or gallops. LUNGS: Clear to auscultation bilaterally. ABDOMEN: Soft, nontender, nondistended. NEURO AND PSYCH: Alert and oriented to person, place, and time. Normal affect. INPATIENT MEDICATIONS: Reviewed. LABORATORY DATA: Reviewed. TELEMETRY DATA: Reviewed, shows normal sinus rhythm. ASSESSMENT: 1. Moderate aortic stenosis. 2. History of aortic valve endocarditis. 3. Hypertension. 4. Hyperlipidemia. 5. Atrial fibrillation on Eliquis. 6. History of right lower extremity deep venous thrombosis and pulmonary embolism. PLAN: Renal function is improving. The patient is feeling better with some gentle hydration. Remains euvolemic by exam. Rule out for acute NV with serial troponin. Doing well from a cardiovascular standpoint. Continue current regimen. Thank you for this consult. We will continue to follow. MD KIM Gordon/PABLO /[id number]
[2019-04-04 05:16] LABS: BASOPHILS # (AUTO) 0.1 (0.0-0.1); BASOPHILS % 0.6 % (0.0-1.0); EOSINOPHILS # (AUTO) 0.2 (0.0-0.4); EOSINOPHILS % 2.8 % (0.0-6.0); HEMATOCRIT 38.1 % (34.2-44.1); HEMOGLOBIN 12.2 g/dL (12.0-16.0); LYMPHOCYTES # (AUTO) 2.1 (1.0-3.2); LYMPHOCYTES % 26.9 % (18.0-39.1); MONOCYTES # (AUTO) 0.8 (0.2-0.8); MONOCYTES % 10.4 % (4.4-11.3); NEUTROPHILS # (AUTO) 4.6 (2.1-6.9); PLATELET COUNT 276 x10e3/uL (140-360); RED BLOOD COUNT 3.81 x10e6/uL (3.6-5.1); RED CELL DISTRIBUTION WIDTH 13.3 % (11.7-14.4)
[2019-04-04 05:26] LABS: ANION GAP 13.4 mmol/L (8-16); CALCIUM 10.8 mg/dL (8.4-10.2); CREATININE, SERUM 1.04 mg/dL (0.57-1.11); POTASSIUM 4.4 mmol/L (3.5-5.1)
--- NOTE | 2019-04-04 06:03 | NUR ---
BP NOTED 167/74.NORVASC 10 MG PO GIVEN.
--- NOTE | 2019-04-04 07:12 | NUR ---
BED SIDE SHIFT REPORT GIVEN TO THE ONCOMING RN.STABLE CONDITION.
[2019-04-04 08:15] VITALS: BP 178/81
[2019-04-04 08:40] VITALS: BP 178/81
[2019-04-04] MEDS: METOPROLOL SUCCINATE 25 MG TAB XL PO SCH (08:40)
[2019-04-04] MEDS: APIXAB 2.5 MG TABLET PO SCH ×2 (08:40→16:38)
[2019-04-04] MEDS ORDERED: ASCORBIC ACID 500 MG TAB PO SCH (09:00)
[2019-04-04] MEDS ORDERED: CHOLECALCIFEROL 1,000 UNIT TAB PO SCH (09:00)
[2019-04-04] MEDS ORDERED: BIOTIN 1000 MCG PO SCH (09:00)
[2019-04-04] MEDS ORDERED: AMIODARONE HCL 200 MG TAB PO SCH (09:00)
[2019-04-04] MEDS ORDERED: AMLODIPINE BESYLATE 10 MG TAB PO SCH (09:00)
[2019-04-04] MEDS ORDERED: VITAMIN E 400 UNIT CAP PO SCH (09:00)
[2019-04-04] MEDS ORDERED: FOLIC ACID/CYANOCOB/PYRIDOXINE TAB PO SCH (09:00)
[2019-04-04 11:39] VITALS: BP 130/65
[2019-04-04] MEDS ORDERED: BISACODYL 5 MG TAB EC PO ONE (12:00)
[2019-04-04] MEDS ORDERED: MAGNESIUM HYDROXIDE 30 ML UDC PO ONE (12:00)
--- NOTE | 2019-04-04 12:06 | NUR ---
EDUCATED ABOUT IMM, SIGNED, FILED IN CHART, WITH COPY LEFT WITH FAMILY AT BEDSIDE.
--- NOTE | 2019-04-04 14:46 | Diagnostic Imaging Report ---
EXAM: Renal Ultrasound INDICATION: ^ashkan ^[id number] ^[id number] COMPARISON: None TECHNIQUE: Transverse and longitudinal images of the kidneys and bladder were obtained. FINDINGS: Right Kidney: Length: 8.9 cm Appearance: Normal echogenicity. Collecting system: No hydronephrosis Stones: None Cyst/Mass: None Left Kidney: Length: 9.9 cm Appearance: Normal echogenicity. Collecting system: No hydronephrosis Stones: None Cyst/Mass: None Bladder: No mass or calculi. Bilateral ureteral jets seen. Prevoid volume estimate of 14.9 cc. IMPRESSION: No hydronephrosis or renal calculi. Signed by: Yasmin Morfin MD on 04/04/2019 2:43 PM
[2019-04-04 15:23] VITALS: BP 136/75
[2019-04-04] MEDS ORDERED: Eliquis PO (15:58)
[2019-04-04] MEDS ORDERED: ACETAMINOPHEN 325 MG TAB PO PRN (16:30)
[2019-04-04] MEDS ORDERED: ONDANSETRON HCL 4 MG ORAL DISINTEGRATING TAB PO PRN (16:30)
--- NOTE | 2019-04-04 17:07 | NUR ---
Dictated DC summary: [id number]
--- NOTE | 2019-04-04 17:19 | NUR ---
Patient discharged off the unit at this time via wheelchair. Patient education completed along with medication changes to follow at home. All questions answered accordingly. Patient in no distress. Pain is 3/10 to back.
--- NOTE | 2019-04-04 17:54 | Discharge Summary ---
ADMIT DIAGNOSES: 1. Chest pain. 2. Acute renal failure. 3. Anemia. 4. Hypercalcemia. DISCHARGE DIAGNOSES: 1. Atypical chest pain, resolved. 2. Paroxysmal atrial fibrillation. 3. Acute renal insufficiency, resolved. HOSPITAL COURSE: This is an 88-year-old white woman, who was initially admitted to [facility] with diagnosis of atypical chest pain and acute renal insufficiency. She also has history of paroxysmal atrial fibrillation and is on Eliquis. Moreover, she has a remote history of lower extremity deep venous thrombosis and pulmonary embolism. Also, she has history of moderate aortic stenosis. During this hospitalization, patient's acute renal insufficiency resolved with intravenous fluids. The patient's meloxicam and losartan were stopped because of the acute renal insufficiency. On admission, the patient's BUN and creatinine was 24, 1.47 respectively. On day of discharge, the patient's BUN and creatinine was 25 and 1.04 respectively. During this hospitalization, the patient was seen by a special educator, namely Dr. Demarcus Peñaloza. The patient was also seen by a vacuum evaporation operator namely Dr. Andi Mancilla. The patient was continued on Eliquis 2.5 mg twice a day for atrial fibrillation. During this hospitalization, the patient did receive physical therapy. Her brief hospitalization was unremarkable. Her condition on discharge was stable. The patient did undergo serial cardiac enzymes as well as electrocardiograms, which did not reveal any evidence of acute myocardial ischemia or infarction. CONDITION ON DISCHARGE: The patient's condition on discharge is stable. DISCHARGE MEDICATIONS: 1. Eliquis 2.5 mg twice a day. 2. Acetaminophen 600 mg every 6 hours p.r.n. pain. 3. Nephro-Odnny once daily. 4. Vitamin D3 2000 units daily. 5. Vitamin C 500 mg daily. 6. Amiodarone 200 mg daily. 7. Metoprolol succinate 25 mg daily. 8. Amlodipine 10 mg daily. 9. Biotin 1000 mcg daily. The patient was instructed to stop the following medications vitamin E, losartan, and meloxicam. The patient was also instructed to avoid all NSAIDs. FOLLOWUP INSTRUCTIONS: The patient was instructed to follow up with Lina Burris his primary care physician within next 7 to 10 days. Shiva E Orahood, MD MEO/JAMILAL /[id number] cc: MD Andi Lazaro MD MTDD
[2019-04-05] MEDS ORDERED: BISACODYL 5 MG TAB EC PO PRN (07:00)
[2019-04-05] MEDS ORDERED: MAGNESIUM HYDROXIDE 30 ML UDC PO PRN (07:00)
[2019-04-07 11:11] LABS: ALPHA 2 GLOBULIN URINE PEP 15.8 % (.)
== END 2019-04-04 17:20 | disposition home or self-care (01) | DRG 684 ==
LOC: ER 13:09 → ERHOLD 16:50 → MED/SURG2 17:37
PROVIDERS: ADMIT Internal Medicine; ATTEND Internal Medicine
DX: N17.9 Acute kidney failure, unspecified (principal); D64.9 Anemia, unspecified; E83.52 Hypercalcemia; J43.9 Emphysema, unspecified; Z86.718 Personal history of other venous thrombosis and embolism; Z79.01 Long term (current) use of anticoagulants; Z86.711 Personal history of pulmonary embolism; E78.5 Hyperlipidemia, unspecified; I48.91 Unspecified atrial fibrillation; I12.9 Hypertensive chronic kidney disease with stage 1 through stage 4 chronic kidney disease, or unspecified chronic kidney disease; N18.3 Chronic kidney disease, stage 3 (moderate); I35.0 Nonrheumatic aortic (valve) stenosis; R07.89 Other chest pain
CPT/HCPCS: 36415; 71045; 76770; 80048; 80053; 80061; 81001; 81015; 82550; 82553; 82570; 83880; 84165; 84166; 84300; 84484; 85025; 85610; 85730; 93005; 93306; 97139; 99284; J7030

== ENCOUNTER → 2020-05-18 | Outpatient (CLI) | payer MEDICARE, BC ==
[~2020-05-18] MED LIST changes: +AMIODARONE HCL200 MG PO; +EVOXAC30 MG PO; +Eliquis PO; +LOSARTAN POTASS25 MG PO; +METOPROLOL SUCC25 MG PO
== END ==
LOC: DX 10:36
DX: M81.0 Age-related osteoporosis without current pathological fracture (principal)
CPT/HCPCS: 77080

== ENCOUNTER → 2020-05-22 | Outpatient (CLI) | payer MEDICARE, BC ==
[~2020-05-22] MED LIST changes: +DIATRIZOATE MEGL/DIATRIZOA SOD 30 ML BTL PO ONE; +IOPAMIDOL 370 MG/ML 200 ML INFUS..BTL INJ ONE; +SODIUM CHLORIDE 0.9% 500ML 500 ML ONE; +SODIUM CHLORIDE 0.9% 50ML 50 ML ONE
[2020-05-22 08:42] LABS: CREATININE, SERUM 1.45 mg/dL (0.57-1.11)
== END ==
LOC: CT 07:54
PROVIDERS: ATTEND Internal Medicine Gastroenterology
DX: R19.04 Left lower quadrant abdominal swelling, mass and lump (principal)
CPT/HCPCS: 36415; 74177; 82565; 84520; J7040; Q9967; 96360